=== PATIENT | male | born 1940 | race Caucasian/White ===

== ENCOUNTER → 2018-01-05 09:57 | Outpatient (CLI) | payer MEDICARE, SELFPAY ==
[2018-01-05 12:35] LABS: Absolute Lymphocyte Count 1.38 X10^3/ul (0.83-4.51); Absolute Neutrophil Count 5.5 X10^3/uL (2.0-7.7); Basophil# 0.03 X10^3/uL; Basophil% 0.4 % (0-1); Eosinophils% 7.3 % (0-5); Hematocrit 39.8 % (40-54); Lymphocyte # 1.38 X10^3/ul (4.0); Lymphocyte % 16.8 % (19-41); Mean Corp Hgb Conc 32.7 g/gl (32-36); Mean Corpuscular Hgb 30.9 pg (27.0-32.0); Mean Corpuscular Volume 94.5 fL (80-94); Mean Platelet Vol. 10.2 fl (6.2-12.0); Monocyte# 0.67 X10^3/uL; Monocyte% 8.1 % (0-10); Neutrophil # 5.53 X10^3/uL (2.7-7.7); Neutrophil % 67.2 % (47-70); Platelet Count 357 K/mm3 (150-450); RBC Distribution Width CV 14.5 % (11.6-14.6); RBC Distribution Width SD 49.2 fl (35.1-43.9); Red Blood Count 4.21 M/mm3 (4.6-6.2); White Blood Count 8.2 K/mm3 (4.4-11.0)
[2018-01-05 12:49] LABS: ALB/GLOB Ratio 0.9 RATIO (0.9-2.4); AST(SGOT) 13 U/L (15-37); Alanine Aminotransfer ALT/SGPT 19 U/L (16-61); Albumin, Serum 3.5 g/dL (3.2-5.0); Alkaline Phosphatase 71 U/L (45-117); Anion Gap 7 (5-15); BUN 17 mg/dL (7-18); BUN/Creat Ratio 14.7 RATIO (10-20); Calcium,Total 9.1 mg/dL (8.5-10.1); Chloride 105 mmol/L (98-107); Creatinine, Serum 1.16 mg/dL (0.70-1.30); EST Glomerular Filtration Rate 65 mL/min (>60); Est Glom Filt Rate - Afr Amer 78 mL/min (>60); Globulin 4.1 g/dL (2.2-4.2); Glucose 139 mg/dL (74-106); Potassium 4.4 mmol/L (3.5-5.1); Protein, Total 7.6 g/dL (6.4-8.2); Sodium Level 139 mmol/L (136-145)
[2018-01-05 12:53] LABS: POSITIVE COUNT NO; POSITIVE DIFFERENTIAL NO; POSITIVE MORPHOLOGY NO
== END ==
PROVIDERS: Family Provider Family Medicine; PCP Family Medicine; Visit Provider Family Medicine
DX: E11.9 Type 2 diabetes mellitus without complications (principal)
CPT/HCPCS: 36415; 80053; 85025

== ENCOUNTER → 2018-05-01 10:16 | Outpatient (CLI) | payer MEDICARE, SELFPAY ==
[2018-05-01 11:44] LABS: Bacteria 0 SEEN /hpf (None Seen); Mucous, Urine 0 SEEN /hpf (<or=2+); Squamous Epithelial Cells - UA 0 SEEN /hpf (0-5); White Blood Cells 0 SEEN /hpf (0-5)
[2018-05-01 14:04] LABS: Color, Urine Yellow (Yellow); Glucose, Dipstick Normal (Normal); Ketone-Dipstick Negative (Negative); Leukocyte Esterase-Dipstick Negative /ul (Negative); Nitrite-Dipstick Negative (Negative); Occult Blood-Urine 10 /ul (Negative); Protein-Dipstick Negative (Negative); Urine Bilirubin Dipstick Negative (Negative); Urine Clarity Clear (Clear); Urine Urobilinogen Normal (Normal)
[2018-05-01 14:11] LABS: Hematocrit 40.4 % (40-54); Hemoglobin 13.3 g/dl (13.0-16.5); Mean Corp Hgb Conc 32.9 g/gl (32-36); Mean Corpuscular Hgb 30.9 pg (27.0-32.0); Platelet Count 295 K/mm3 (150-450); RBC Distribution Width SD 46.2 fl (35.1-43.9); White Blood Count 7.8 K/mm3 (4.4-11.0)
[2018-05-01 14:12] LABS: Red Blood Cells-Urine 0-5 SEEN /hpf (0-5)
[2018-05-01 14:13] LABS: Scan Indicated on CBC? Y/N NO
[2018-05-01 14:25] LABS: AST(SGOT) 18 U/L (15-37); Alanine Aminotransfer ALT/SGPT 23 U/L (16-61); Albumin, Serum 3.8 g/dL (3.2-5.0); Alkaline Phosphatase 68 U/L (45-117); Anion Gap 5 (5-15); BUN 17 mg/dL (7-18); BUN/Creat Ratio 14.4 RATIO (10-20); Calcium,Total 9.5 mg/dL (8.5-10.1); Chloride 107 mmol/L (98-107); Creatinine, Serum 1.18 mg/dL (0.70-1.30); EST Glomerular Filtration Rate 63 mL/min (>60); Est Glom Filt Rate - Afr Amer 77 mL/min (>60); Globulin 3.9 g/dL (2.2-4.2); Glucose 127 mg/dL (74-106); Potassium 4.4 mmol/L (3.5-5.1); Protein, Total 7.7 g/dL (6.4-8.2); Sodium Level 140 mmol/L (136-145)
[2018-05-01 14:33] LABS: Hemoglobin A1c 7.1 % (4.2-6.3)
== END ==
PROVIDERS: Family Provider Family Medicine; PCP Family Medicine; Visit Provider Family Medicine
DX: J44.9 Chronic obstructive pulmonary disease, unspecified (principal); E11.9 Type 2 diabetes mellitus without complications
CPT/HCPCS: 36415; 80053; 81001; 83036; 85027

== ENCOUNTER → 2018-06-13 08:41 | Outpatient (CLI) | payer MEDICARE, SELFPAY ==
--- NOTE | 2018-06-13 08:44 | US_ITS ---
STUDY: ULTRASOUND - URINARY BLADDER REASON FOR EXAM: Male, 77 years old. Urinary retention. TECHNIQUE: Ultrasound evaluation of the urinary bladder was performed with real-time and static hernandez-scale imaging. COMPARISON: 09/13/17. FINDINGS: There is no right UVJ calculus. There is a visualized right ureteral jet. There is no left UVJ calculus. There is a visualized left ureteral jet. The distended volume of the urinary bladder is 411 ml. The empty volume of the urinary bladder is 184 ml. The bladder wall is within normal limits. The bladder wall measures 3. There is no demonstrated bladder wall mass lesion. Probable debris seen along the posterior wall. There are no demonstrated bladder calculi. There is marked enlargement of the prostate gland measuring 6.0 x 5.4 x 3.6 cm US/Post Void Residual Bladder IMPRESSION: Moderate urinary retention. Marked prostate enlargement. Electronically Signed: Cooper Rodriguez MD at 18:03 EDT , Service support ,
== END ==
PROVIDERS: Family Provider Family Medicine; PCP Family Medicine; Visit Provider Family Medicine
DX: R33.9 Retention of urine, unspecified (principal)
CPT/HCPCS: 51798

== ENCOUNTER → 2018-06-26 17:11 | Outpatient (CLI) | payer MEDICARE, SELFPAY ==
[2018-06-26 17:52] LABS: Bacteria 0 SEEN /hpf (None Seen); Mucous, Urine 0 SEEN /hpf (<or=2+); Squamous Epithelial Cells - UA 0 SEEN /hpf (0-5)
[2018-06-26 17:58] LABS: Color, Urine Yellow (Yellow); Glucose, Dipstick Normal (Normal); Ketone-Dipstick Negative (Negative); Leukocyte Esterase-Dipstick 25 /ul (Negative); Nitrite-Dipstick Negative (Negative); Occult Blood-Urine 25 /ul (Negative); Protein-Dipstick Negative (Negative); Urine Bilirubin Dipstick Negative (Negative); Urine Clarity Clear (Clear); Urine Urobilinogen Normal (Normal)
[2018-06-26 18:15] LABS: Red Blood Cells-Urine 0-5 SEEN /hpf (0-5); White Blood Cells 0-5 SEEN /hpf (0-5)
== END ==
PROVIDERS: Family Provider Family Medicine; PCP Family Medicine; Visit Provider Nurse Practitioner Adult Health
DX: R31.9 Hematuria, unspecified (principal)
CPT/HCPCS: 81001; 87086; 87088

== ENCOUNTER → 2018-08-07 10:02 | Outpatient (CLI) | payer MEDICARE, SELFPAY ==
[2018-08-07 10:07] LABS: Mucous, Urine 0 SEEN /hpf (<or=2+); White Blood Cells 0 SEEN /hpf (0-5)
[2018-08-07 12:18] LABS: Absolute Lymphocyte Count 1.26 X10^3/ul (0.83-4.51); Absolute Neutrophil Count 5.1 X10^3/uL (2.0-7.7); Basophil# 0.03 X10^3/uL; Basophil% 0.4 % (0-1); Eosinophil# 0.58 X10^3/uL; Eosinophils% 7.5 % (0-5); Hematocrit 39.1 % (40-54); Hemoglobin 12.8 g/dl (13.0-16.5); Lymphocyte # 1.26 X10^3/ul (4.0); Lymphocyte % 16.3 % (19-41); Mean Corp Hgb Conc 32.7 g/gl (32-36); Mean Corpuscular Hgb 31.1 pg (27.0-32.0); Mean Corpuscular Volume 94.9 fL (80-94); Mean Platelet Vol. 10.7 fl (6.2-12.0); Monocyte# 0.73 X10^3/uL; Monocyte% 9.5 % (0-10); Neutrophil # 5.11 X10^3/uL (2.7-7.7); Neutrophil % 66.2 % (47-70); Platelet Count 271 K/mm3 (150-450); RBC Distribution Width CV 13.7 % (11.6-14.6); RBC Distribution Width SD 45.4 fl (35.1-43.9); Red Blood Count 4.12 M/mm3 (4.6-6.2); White Blood Count 7.7 K/mm3 (4.4-11.0)
[2018-08-07 12:23] LABS: POSITIVE COUNT NO; POSITIVE DIFFERENTIAL NO; POSITIVE MORPHOLOGY NO
[2018-08-07 12:42] LABS: Color, Urine Yellow (Yellow); Glucose, Dipstick Normal (Normal); Ketone-Dipstick 5 mg/dl (Negative); Leukocyte Esterase-Dipstick 25 /ul (Negative); Nitrite-Dipstick Negative (Negative); Occult Blood-Urine 25 /ul (Negative); Protein-Dipstick 15 mg/dl (Negative); Urine Clarity Sl. Cloudy (Clear); Urine Urobilinogen 1 mg/dl (Normal)
[2018-08-07 12:44] LABS: AST(SGOT) 18 U/L (15-37); Alanine Aminotransfer ALT/SGPT 22 U/L (16-61); Albumin, Serum 3.7 g/dL (3.2-5.0); Alkaline Phosphatase 69 U/L (45-117); Anion Gap 9 (5-15); BUN 21 mg/dL (7-18); BUN/Creat Ratio 18.8 RATIO (10-20); Chloride 107 mmol/L (98-107); Cholesterol 159 mg/dL (200); Creatinine, Serum 1.12 mg/dL (0.70-1.30); EST Glomerular Filtration Rate 67 mL/min (>60); Est Glom Filt Rate - Afr Amer 81 mL/min (>60); Globulin 3.8 g/dL (2.2-4.2); Glucose 142 mg/dL (74-106); High Density Lipoprotein 48 mg/dL; Potassium 4.3 mmol/L (3.5-5.1); Protein, Total 7.5 g/dL (6.4-8.2); Sodium Level 141 mmol/L (136-145); Triglycerides 84 mg/dL; Very Low Density Lipoprotein 17 mg/dL (5-40)
[2018-08-07 12:45] LABS: Urine Bilirubin Dipstick 1 mg/dL (Negative)
[2018-08-07 12:47] LABS: Hemoglobin A1c 6.9 % (4.2-6.3)
[2018-08-07 12:49] LABS: Bacteria RARE /hpf (None Seen); Hyaline Cast 0-5 SEEN /lpf (0-5); Red Blood Cells-Urine 0-5 SEEN /hpf (0-5); Squamous Epithelial Cells - UA 0-5 SEEN /hpf (0-5)
[2018-08-07 12:57] LABS: Microalbumin,Random Urine 46.4 mg/L (NO RANGE EST.); Microalbumin:Creatinine Ratio 15.5 mg/g CRE (<30 mg/g CRE)
== END ==
PROVIDERS: Family Provider Family Medicine; PCP Family Medicine; Visit Provider Family Medicine
DX: E11.9 Type 2 diabetes mellitus without complications (principal); J44.9 Chronic obstructive pulmonary disease, unspecified; Z72.0 Tobacco use
CPT/HCPCS: 36415; 80053; 80061; 81001; 82043; 82570; 83036; 85025

== ENCOUNTER → 2018-08-08 10:21 | Outpatient (CLI) | payer MEDICARE, SELFPAY ==
[2018-08-08 12:50] LABS: Vitamin B12 842 pg/mL (211-911)
[2018-08-08 13:20] LABS: Ferritin 269 ng/mL (26-388); Iron 63 ug/dL (65-175); Iron Binding Capacity,Total 269 ug/dL (250-450)
== END ==
PROVIDERS: Family Provider Family Medicine; PCP Family Medicine; Visit Provider Family Medicine
DX: D64.9 Anemia, unspecified (principal)
CPT/HCPCS: 36415; 82607; 82728; 82746; 83540; 83550

== ENCOUNTER → 2018-08-22 11:16 | Outpatient (CLI) | payer MEDICARE, SELFPAY ==
--- NOTE | 2018-08-22 11:23 | RAD_ITS ---
STUDY: X-RAY - ACUTE ABDOMINAL SERIES REASON FOR EXAM: Male, 77 years old. Constipation with pain across the lower belly and back for one month TECHNIQUE: Single view of the chest. Supine, and erect view(s) of the abdomen were obtained. COMPARISON: None. FINDINGS: Rounded consolidation adjacent to the right hilum measures approximately 6.1 cm. Normal size heart. Normal mediastinum and aditi. Normal visualized pulmonary arteries. Normal visualized aortic arch and descending thoracic aorta. There is a non-specific bowel gas pattern. There are multiple rounded calcifications of the right upper abdomen, likely gallstones. Mild fecal residue of the right colon. There are diffuse degenerative changes of the visualized lumbar spine with mild levoscoliosis. There are vascular phleboliths of the pelvis. RAD/Acute Abdomen Inc Chest IMPRESSION: 1. Rounded right perihilar consolidation may represent localized pneumonia, however, follow-up is recommended as neoplasm is also in the differential diagnosis. 2. Probable gallstones. 3. Degenerative changes of the lumbar spine. Electronically Signed: Gianluca Dotson MD at 19:17 EST , Service support ,
== END ==
PROVIDERS: Family Provider Family Medicine; PCP Family Medicine; Referring Provider Family Medicine; Visit Provider Family Medicine
DX: R10.9 Unspecified abdominal pain (principal)
CPT/HCPCS: 74022

== ENCOUNTER → 2018-08-28 14:43 | Outpatient (CLI) | payer MEDICARE, SELFPAY ==
--- NOTE | 2018-08-28 14:50 | CT_ITS ---
STUDY: CT CHEST WITH CONTRAST REASON FOR EXAM: Male, 77 years old. Pulmonary mass seen on chest x-ray RADIATION DOSAGE (If Supplied By Facility): CTDIvol = ( 18.94 ) mGy, DLP = ( 606.20 ) mGycm TECHNIQUE: Transaxial imaging was performed following intravenous administration of 100ML ml of Isovue 300 contrast material. Individualized dose optimization techniques were used for this CT. COMPARISON: 08/22/2018 FINDINGS: Mild pulmonary emphysema. Diffuse pulmonary hyperinflation. Dense right lower lobe pneumonia. Milder multifocal pneumonia in the other pulmonary lobes. Focal pneumonia in the right upper lobe, left lower lobe and lingula contains areas of cavitation No well-defined lung mass is seen. There is no demonstrated pleural abnormality. Normal heart and pericardium. Normal mediastinum. Normal hilar regions. Normal enhanced pulmonary arteries. Normal aorta arch and descending thoracic aorta. There are multi-level degenerative changes of the thoracic spine. Multiple gallstones. Fatty liver. Several faint areas of increased and decreased density are noted throughout the liver and several low density areas are present in the spleen. Hepatic and/or splenic metastatic disease is not excluded. Indeterminate nonfatty 3.4 x 2.4 cm left adrenal mass. Ill-defined mass in the body of the pancreas measuring 5.5 x 3.4 cm on image 139 of series 1002. The diagnosis of exclusion is pancreatic malignancy. Multiple shotty peripancreatic and periportal lymph nodes are present. CT/Chest WITH Contrast IMPRESSION: Dense right lower lobe pneumonia. Milder focal pneumonia is present in the other pulmonary lobes. However, several of these focal areas of alveolar disease contain cavitation. Differential includes multiple areas of cavitary infection, inflammation, and neoplasm. Mass in the body of the pancreas. The diagnosis of exclusion is pancreatic malignancy. Indeterminate mass in the left adrenal gland. Metastatic disease is not excluded. Metastatic disease cannot be excluded involving the liver and spleen as described. Multiple gallstones. Electronically Signed: Wood Hamlin MD at 0:18 EST Tel , Service support ,
--- OUTSIDE RECORDS SUMMARY | 2018-10-10 12:45 | XMS RPT_ITS ---
:1940 Author Organization OHIP Care Team Providers Name Role Phone Jenny Delvalle Attending Unavailable Jenny Delvalle Primary Care Unavailable Jenny Delvalle Attending Unavailable Jenny Delvalle Primary Care Unavailable Jenny Delvalle Attending Unavailable Jenny Delvalle Referring Unavailable Jenny Delvalle Primary Care Unavailable Fabienne Vale Attending Unavailable Fabienne Vale Referring Unavailable Jenny Delvalle Primary Care Unavailable Jenny Delvalle Attending Unavailable Jenny Delvalle Primary Care Unavailable Schinner, Jenny E Attending Unavailable Schinner, Jenny E Primary Care Unavailable Schinner, Jenny E Attending Unavailable Schinner, Jenny E Referring Unavailable Schinner, Jenny E Primary Care Unavailable Schinner, Jenny E Attending Unavailable Schinner, Jenny E Referring Unavailable Schinner, Jenny E Primary Care Unavailable Schinner, Jenny E Attending Unavailable Schinner, Jenny E Referring Unavailable Schinner, Jenny E Primary Care Unavailable ALI, NOAMAN Attending Unavailable MASCI, CIARAN A Referring Unavailable ALI, NOAMAN Referring Unavailable AWENDER, LAKISHA S Admitting Unavailable AWENDER, LAKISHA S Attending Unavailable MASCI, CIARAN A Attending Unavailable SCHINNER, JENNY MCINTYRE Referring Unavailable ALI, NOAMAN Referring Unavailable MASCI, CIARAN A Attending Unavailable MASCI, ICARAN A Referring Unavailable MASCI, CIARAN A Referring Unavailable [facility] Primary Care Unavailable AWENDER, H S Admitting Unavailable AWENDER, H S Attending Unavailable IMCA Primary Care Unavailable ALI, NOAMAN S Referring Unavailable IMCA Primary Care Unavailable MASCI, CIARAN A Referring Unavailable ALI, NOAMAN S Attending Unavailable PROBLEMS PROBLEMS DATE TYPE CONDITION / CODE ATTENDING STATUS SOURCE 09/13/2018 Active Disease of AWENDER, Active [facility] pancreas, LAKISHA S Clinic Other unspecified / [place] K86.9(ICD-10) Repository 09/13/2018 Admitting Unknown / AWENDER, H S Active [place] [facility] UNK(Unknown) [facility] Repository 09/08/2018 Active Coagulation defect, NA Active [facility] unspecified / [facility] D68.9(ICD-10) [place] Repository 09/08/2018 Active Malignant neoplasm ALI, NOAMAN Active [facility] of body of pancreas Clinic Other / C25.1(ICD-10) [place] Repository 08/28/2018 Unknown R91.8 - Other Jenny Delvalle Active [place] nonspecific [facility] abnormal finding of Hospital lung field / Repository R91.8(ICD-10) 08/22/2018 Unknown R10.9 - Unspecified Jenny Delvalle Active [facility] abdominal pain / [facility] R10.9(ICD-10) Hospital Repository 01/27/2018 Unknown E11.9 - Type 2 Jenny Delvalle Active [facility] diabetes mellitus [facility] without Hospital complications / Repository E11.9(ICD-10) PROCEDURES PROCEDURES No Procedure Records FoundRESULTS RESULTS PROGRESS Observed: 09/19/2018 Status: COMPLETED Source: [place] 10:32 AM [facility] RE[facility] HNO ID: [id number] Author: Isabella Chapin (Sw) Service: (none) Author Type: Clinical Documentation Improvement Specialist Type: Progress Notes Filed: 09/19/2018 10:45 AM Note Text: PSYCHOSOCIAL ASSESSMENT Date of Service: September 19, 2018 Jenny Nobles is a 77 year old male being seen for initial social work assessment. 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 Gambino Radiation Oncologist: NAYE Goals of Care: Palliative care Today's visit includes: self/patient and spouse Family History of Cancer: Mother *SUPPORT NETWORK: Marital status: Parent(s): Mother is and Father is Child/Children: Yes. How many? 1 son health care analyst arrangements needed: No Siblings: 1 sister(s) Grandchild(ryan): none Home Health Provider: No Community Services: No Krysten Identified: Yes Religious/Spirituality: Spiritism Are these practices or beliefs that may affect or influence treatment? No *EMPLOYMENT/FINANCIAL/HEALTH INSURANCE: Employment: Retired Income source: Social Security Insurance: Medicare HMO Prescription coverage: Yes COBRA Is the patient appropriate for referral to [facility] COBRA Assistance program? No Financial Distress: No : No *LIVING ARRANGEMENTS: Type: House- independent ranch Resides with: Family spouse *FUNCTIONAL STATUS: Cognitive limitations: none Physical limitations: Back pain Language barrier: No Hearing Impaired: Yes hearing aids Speech Impaired: No Visual Impairments: Yes, glasses Literacy Issues: No Special considerations/accommodations needed: No MENTAL HEALTH HISTORY: No History of combat/trauma: No Substance Use and Treatment History: denied History of Abuse: No Issues with: ? Sleep: Occassionally some issues sleeping due to back pain ? Eating:Yes ? Exercising: N/A ? Stress Management: No *ADVANCE DIRECTIVES/LEGAL DOCUMENTS: Living Will: Yes Health Care Durable Power of Spine Surgeon: Yes Scanned into EPIC: No Guardianship: NA Scanned into EPIC:NA *COPING STATUS: Coping Strengths: supportive relationships with immediate family, with friends and with yazidism spirituality successful managing past crises hopefulness able to follow direction consistently over time Current affect/mood: appropriate History of Loss: Yes, mother and father Adjustment to diagnosis: reflecting understanding, responding appropriately and accepting help *BARRIERS/CARE CHALLENGES: None Are barriers/care challenges identified likely to have an impact on the patient's quality of life during treatment? NA *CLINICAL IMPRESSION: SW called patient to monitor MH symptoms and to assess patient needs. Patient reports strong support system and states that his son lives nearby and that he attends yazidism. Patient's spouse was on the line as well and answered some of the questions for patient. Patient reports some back pain that occasionally keeps him up at night, but states most nights he sleeps well. Patient reports decrease in appetite and states he can't hold as much food as [he] used to. Patient reports cognitively he has no issues and reports no history of or current MH issues. Patient uses hearing aids and glasses. Patient lives in a single-story home with his spouse and denies issues getting around his home. At this time patient denies any financial stressors. When SW asked if patient has completed Advance Directives, his spouse stated he has those documents. SW asked if they would be able to bring a copy in at his next appointment so SW could ensure it is scanned into his chart in case it is ever needed. Patient's spouse stated that she does not want to do this. Patient did not say anything. SW encouraged them to think this over and to contact JACOB if they change their mind. SW oriented patient to services. INTERVENTIONS/REFERRALS TO BE PROVIDED: Monitor patient response to treatment Communicate pertinent medical/psychosocial information to Cancer Center team Provided education on distress and screening process Continue follow up as needed Resources and Referrals: ? Internal: NA ? External: N/A PLAN: Follow up appointment with JACOB in: [facility] Ramos CNSW Observed: 09/19/2018 Status: COMPLETED Source: [place] 12:00 AM [facility] REPOSITORY Social Work ([facility]) JENNY NOBLES ([id number]) 1940 M Date Time Provider Department 09/19/18 ISABELLA CHAPIN (SW) During your visit today, we recorded the following information about you: CLYDE Doherty 09/19/2018 10:45 AM Signed PSYCHOSOCIAL ASSESSMENT Date of Service: September 19, 2018 Jenny Nobles is a 77 year old male being seen for initial social work assessment. 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 Gambino Radiation Oncologist: NAYE Goals of Care: Palliative care Today's visit includes: self/patient and spouse Family History of Cancer: Mother *SUPPORT NETWORK: Marital status: Parent(s): Mother is and Father is Child/Children: Yes. How many? 1 son health care analyst arrangements needed: No Siblings: 1 sister(s) Grandchild(ryan): none Home Health Provider: No Community Services: No Krysten Identified: Yes Religious/Spirituality: Spiritism Are these practices or beliefs that may affect or influence treatment? No *EMPLOYMENT/FINANCIAL/HEALTH INSURANCE: Employment: Retired Income source: Social Security Insurance: Medicare HMO Prescription coverage: Yes COBRA Is the patient appropriate for referral to [facility] COBRA Assistance program? No Financial Distress: No [place]: No *LIVING ARRANGEMENTS: Type: House- independent ranch Resides with: Family spouse *FUNCTIONAL STATUS: Cognitive limitations: none Physical limitations: Back pain Language barrier: No Hearing Impaired: Yes hearing aids Speech Impaired: No Visual Impairments: Yes, glasses Literacy Issues: No Special considerations/accommodations needed: No MENTAL HEALTH HISTORY: No History of combat/trauma: No Substance Use and Treatment History: denied History of Abuse: No Issues with: ? Sleep: Occassionally some issues sleeping due to back pain ? Eating:Yes ? Exercising: N/A ? Stress Management: No *ADVANCE DIRECTIVES/LEGAL DOCUMENTS: Living Will: Yes Health Care Durable Power of Spine Surgeon: Yes Scanned into [employer] Software: No Guardianship: NA Scanned into EPIC:NA *COPING STATUS: Coping Strengths: supportive relationships with immediate family, with friends and with yazidism spirituality successful managing past crises hopefulness able to follow direction consistently over time Current affect/mood: appropriate History of Loss: Yes, mother and father Adjustment to diagnosis: reflecting understanding, responding appropriately and accepting help *BARRIERS/CARE CHALLENGES: None Are barriers/care challenges identified likely to have an impact on the patient's quality of life during treatment? NA *CLINICAL IMPRESSION: SW called patient to monitor MH symptoms and to assess patient needs. Patient reports strong support system and states that his son lives nearby and that he attends yazidism. Patient's spouse was on the line as well and answered some of the questions for patient. Patient reports some back pain that occasionally keeps him up at night, but states most nights he sleeps well. Patient reports decrease in appetite and states he can't hold as much food as [he] used to. Patient reports cognitively he has no issues and reports no history of or current MH issues. Patient uses hearing aids and glasses. Patient lives in a single-story home with his spouse and denies issues getting around his home. At this time patient denies any financial stressors. When SW asked if patient has completed Advance Directives, his spouse stated he has those documents. SW asked if they would be able to bring a copy in at his next appointment so SW could ensure it is scanned into his chart in case it is ever needed. Patient's spouse stated that she does not want to do this. Patient did not say anything. SW encouraged them to think this over and to contact SW if they change their mind. SW oriented patient to services. INTERVENTIONS/REFERRALS TO BE PROVIDED: Monitor patient response to treatment Communicate pertinent medical/psychosocial information to Cancer Center team Provided education on distress and screening process Continue follow up as needed Resources and Referrals: ? Internal: NA ? External: N/A PLAN: Follow up appointment with SW in: CLYDE Ramos Allergies As of Date: 09/19/2018 Noted Allergy Reaction enviromental [Other] 03/09/2010 Date Reviewed: 09/18/2018 Reviewed by: Pretty Suarez - Fully Assessed Reason for Visit: Psychosocial Assessment [[id number]] Prescriptions as of 09/19/2018 Sig: CHOLECALCIFEROL (VITAMIN D3) * Take 1 capsule by mouth once * LINAGLIPTIN 5 MG TABLET Take 1 tablet by mouth once d* MULTIVITAMIN TABLET Take one(1) tablet daily. ONDANSETRON HCL 8 MG TABLET Take 1 tablet by mouth every * TAMSULOSIN 0.4 MG CAPSULE Take 0.4 mg by mouth daily at* Problem List As Of Date 09/19/2018 Noted Resolved TREMOR NEC [G25.0, G25.2] INVALID FOR* MALAISE AND FATIGUE NEC [R53.81, R53.83] INVALID FOR* Tubular Adenoma [D36.9] INVALID FOR* More... Tobacco Use Disorder [F17.200] INVALID FOR* Family history of colon cancer [Z80.0] INVALID FOR* Personal history of colonic polyps [Z86.010] INVALID FOR* COPD (chronic obstructive pulmonary disease) (H*INVALID FOR* Malignant neoplasm of body of pancreas (HCC) [C*INVALID FOR* Encounter Status:Closed by ISABELLA CHAPIN on 09/19/18 CNOVSP Observed: 09/18/2018 Status: COMPLETED Source: [place] 1:30 PM [facility] REPOSITORY Visit (SP) Office ([facility]KE) JENNY NOBLES ([id number]) 1940 M Date Time Provider Department 09/18/18 1:30 PM CIARAN GAMBINO During your visit today, we recorded the following information about you: Temperature Pulse Blood pressure Weight 97.4 degrees 70/minute 137/72 73.5 kg Ciaran Gambino DO 09/18/2018 2:28 PM Signed Diagnosis: 1) Metastatic pancreas cancer. HPI: Patient is a 77-year-old male was past medical history significant for COPD. He began experiencing upper lumbar/lower thoracic back pain about 2-3 months ago. He had noticed some decline in appetite. He did not have any episodes of jaundice. He had a chest x-ray which demonstrated a right lower lobe infiltrate and subsequently underwent a CT of the chest. CT chest 08/28/2018: Mild pulmonary emphysema. Diffuse pulmonary hyperinflation. Dense right lower lobe pneumonia. Milder multifocal pneumonia in the other pulmonary lobes. Focal pneumonia in the right upper lobe, left lower lobe and lingula contains areas of cavitation No well-defined lung mass is seen. There is no demonstrated pleural abnormality. Normal heart and pericardium. Normal mediastinum. Normal hilar regions. Normal enhanced pulmonary arteries. Normal aorta arch and descending thoracic aorta. There are multi-level degenerative changes of the thoracic spine. Multiple gallstones. Fatty liver. Several faint areas of increased and decreased density are noted throughout the liver and several low density areas are present in the spleen. Hepatic and/or splenic metastatic disease is not excluded. Indeterminate nonfatty 3.4 x 2.4 cm left adrenal mass. Ill-defined mass in the body of the pancreas measuring 5.5 x 3.4 cm on image 139 of series 1002. The diagnosis of exclusion is pancreatic malignancy. Multiple shotty peripancreatic and periportal lymph nodes are present. IMPRESSION: Dense right lower lobe pneumonia. Milder focal pneumonia is present in the other pulmonary lobes. However, several of these focal areas of alveolar disease contain cavitation. Differential includes multiple areas of cavitary infection, inflammation, and neoplasm. Mass in the body of the pancreas. The diagnosis of exclusion is pancreatic malignancy. Indeterminate mass in the left adrenal gland. Metastatic disease is not excluded. Metastatic disease cannot be excluded involving the liver and spleen as described. Multiple gallstones. CT A/P 08/30/2018: FINDINGS: There is minor interstitial thickening at both lung bases. There is focal peripheral consolidation in both lower lobes greater on the right. Thevisualized portions of the heart are within normal limits. Small hiatal hernia is present Liver is fatty infiltrated without mass or bile duct dilatation.. Multiple calcified stones in the gallbladder without evidence for acute cholecystitis. Normal spleen. There is a large heterogeneous solid mass measuring approximately 5.6 x 2.75 cm involving much of the body and tail of the pancreas. There is encasement and occlusion of the splenic vein with associated perigastric venous collaterals. Right adrenal is normal. There is a solid adrenal mass on the left measuring 2.8 x 2.6 cm suspicious for metastatic disease Normal right kidney. Normal left kidney. Normal visualized stomach. Normal small intestine. Prominent diverticular changes within the descending and sigmoid colon without evidence for acute diverticulitis. The appendix is visualized and appears normal. 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 No evidence for periaortic leak or dissection. Normal inferior vena cava. Normal retroperitoneum. Normal urinary bladder. Nonspecific enlargement of the prostate. There is a small amount of ascites in the pelvis. Small right inguinal hernia containing loop of bowel without evidence for proximal obstruction or incarceration.. Lumbar spine demonstrates moderate spondylosis.. IMPRESSION: Findings consistent with large pancreatic neoplasm involving much of the body and tail of the gland encasing and occluding the splenic vein in association with perigastric venous collaterals. Solid mass in left adrenal suspicious for metastasis which may be further assessed with MRI. Mild ascites Cholelithiasis without evidence for acute cholecystitis. Presents for ongoing oncologic management. Interim history: Since last seen, patient underwent EGD with EUS along with FNA biopsy of the pancreas on 09/13/2018. Pathology: Adenocarcinoma. His pain is unchanged. It's in the upper lumbar area. He doesn't really have any abdominal per se. His appetite however is decreased. Weight is down several more pounds from initial encounter. He's had no episode of jaundice. PMH, medications and allergies personally reviewed by me today. Any changes documented in appropriate section. ROS: Constitutional: Denies episodes of fever and night sweats. Not significantly fatigued. Neuro: Denies VILLAGRAN. Occasional orthostasis. Denies symptoms of neuropathy. HEENT: No recent change in voice, vision or hearing. Resp: Denies shortness of breath at rest. CVS: Denies exertional chest pain, PND, orthopnea and LE edema. GI: Denies dysgeusia. Denies symptoms of stomatitis. Denies dysphagia and odynophagia. : Denies dysuria or gross hematuria. Endo: Denies hot flashes. Denies polyuria and polydipsia. Denies heat and cold intolerance. Musculoskeletal: See above. Derm: Denies rash. Denies diffuse pruritis. Heme: Denies unusual bleeding and unexplained bruising. Psych: Normal mood. PHYSICAL EXAM: Vitals: Blood pressure 137/72, pulse 70, temperature 36.3 ?C (97.4 ?F), temperature source Temporal Artery, weight 73.5 kg (162 lb). Well-appearing and in no acute distress. EYES: Sclerae are anicteric bilaterally. NECK: Supple. LYMPHATIC: There is no palpable cervical or supraclavicular adenopathy. RESPIRATORY: Inspiratory breath sounds are of diminished intensity in all knight. CARDIOVASCULAR: Rhythm is regular. Normal intensity S1/S2. ABDOMEN: The abdomen is nondistended. No tenderness. Extremities: No swelling or edema. SKIN: No jaundice or rash. NEUROLOGIC: float phlebotomist II-XII are grossly intact. No focal motor weakness. ASSESSMENT/PLAN: (K86.9) Mass of pancreas (primary encounter diagnosis) (D49.7) Adrenal tumor Assessment: -Reviewed the CT scans with the patient and his . I also reviewed the biopsy. In all likelihood he has metastatic disease given the magnitude of increase in CA-19-9 and the appearance of the CT scan, however in order to establish whether this truly metastasis, I recommended biopsy of the left adrenal gland mass. -If there is no evidence of metastasis then it's reasonable to clinically approach as borderline resectable disease but if metastasis then he'll need chemotherapy for potential prolongation of overall survival. Gemcitabine and Abraxane would be a reasonable choice for both of these ends. Therefore, I discussed the rationale, logistics, potential risks (including ), benefits and alternatives, as well as the personnel involved in the administration of gemctiabine/Abraxane. I answered his questions in detail and he verbalized understanding and agreed with the recommended therapy. Please see the electronic consent document for details of doses and schedule. Plan: -Range for CT-guided biopsy of left adrenal gland mass at [facility]. -Begin chemotherapy following biopsy. -Monitor CA-19-9 each cycle. -CT scan following 2 cycles. DO Ciaran Blair DO 09/18/2018 2:49 PM Signed Addended by: CIARAN GAMBINO DO on: 09/18/2018 02:49 PM Modules accepted: Orders Referring Provider: CIARAN GAMBINO [[id number]] Allergies As of Date: 09/18/2018 Noted Allergy Reaction enviromental [Other] 03/09/2010 Date Reviewed: 09/18/2018 Reviewed by: Pretty Suarez - Fully Assessed Reason for Visit: Established Patient [175] Primary Visit Diagnosis:Malignant neoplasm of body of pancreas (HCC) [C25.1] Other Visit Diagnosis:Adrenal mass (HCC) [E27.9] Order(s):IMAGING GUIDED BIOPSY ADRENAL LT [[id number]] Order #: [id number] FUTURE Follow-up and Disposition History Recorded Prescriptions as of 09/18/2018 Sig: LINAGLIPTIN 5 MG TABLET Take 1 tablet by mouth once d* MULTIVITAMIN TABLET Take one(1) tablet daily. TAMSULOSIN 0.4 MG CAPSULE Take 0.4 mg by mouth daily at* CHOLECALCIFEROL (VITAMIN D3) * Take 1 capsule by mouth once * Problem List As Of Date 09/18/2018 Noted Resolved TREMOR NEC [G25.0, G25.2] INVALID FOR* MALAISE AND FATIGUE NEC [R53.81, R53.83] INVALID FOR* Tubular Adenoma [D36.9] INVALID FOR* More... Tobacco Use Disorder [F17.200] INVALID FOR* Family history of colon cancer [Z80.0] INVALID FOR* Personal history of colonic polyps [Z86.010] INVALID FOR* COPD (chronic obstructive pulmonary disease) (H*INVALID FOR* Malignant neoplasm of body of pancreas (HCC) [C*INVALID FOR* Encounter Status:Closed by CIARAN GAMBINO DO on 09/18/18 PROGRESS Observed: 09/18/2018 Status: COMPLETED Source: [place] 1:26 PM [facility] REPOSITORY HNO ID: [id number] Author: Ciaran Gambino Service: (none) Author Type: Physician Type: Progress Notes Filed: 09/18/2018 2:28 PM Note Text: Diagnosis: 1) Metastatic pancreas cancer. HPI: Patient is a 77-year-old male was past medical history significant for COPD. He began experiencing upper lumbar/lower thoracic back pain about 2-3 months ago. He had noticed some decline in appetite. He did not have any episodes of jaundice. He had a chest x-ray which demonstrated a right lower lobe infiltrate and subsequently underwent a CT of the chest. CT chest 08/28/2018: Mild pulmonary emphysema. Diffuse pulmonary hyperinflation. Dense right lower lobe pneumonia. Milder multifocal pneumonia in the other pulmonary lobes. Focal pneumonia in the right upper lobe, left lower lobe and lingula contains areas of cavitation No well-defined lung mass is seen. There is no demonstrated pleural abnormality. Normal heart and pericardium. Normal mediastinum. Normal hilar regions. Normal enhanced pulmonary arteries. Normal aorta arch and descending thoracic aorta. There are multi-level degenerative changes of the thoracic spine. Multiple gallstones. Fatty liver. Several faint areas of increased and decreased density are noted throughout the liver and several low density areas are present in the spleen. Hepatic and/or splenic metastatic disease is not excluded. Indeterminate nonfatty 3.4 x 2.4 cm left adrenal mass. Ill-defined mass in the body of the pancreas measuring 5.5 x 3.4 cm on image 139 of series 1002. The diagnosis of exclusion is pancreatic malignancy. Multiple shotty peripancreatic and periportal lymph nodes are present. IMPRESSION: Dense right lower lobe pneumonia. Milder focal pneumonia is present in the other pulmonary lobes. However, several of these focal areas of alveolar disease contain cavitation. Differential includes multiple areas of cavitary infection, inflammation, and neoplasm. Mass in the body of the pancreas. The diagnosis of exclusion is pancreatic malignancy. Indeterminate mass in the left adrenal gland. Metastatic disease is not excluded. Metastatic disease cannot be excluded involving the liver and spleen as described. Multiple gallstones. CT A/P 08/30/2018: FINDINGS: There is minor interstitial thickening at both lung bases. There is focal peripheral consolidation in both lower lobes greater on the right. Thevisualized portions of the heart are within normal limits. Small hiatal hernia is present Liver is fatty infiltrated without mass or bile duct dilatation.. Multiple calcified stones in the gallbladder without evidence for acute cholecystitis. Normal spleen. There is a large heterogeneous solid mass measuring approximately 5.6 x 2.75 cm involving much of the body and tail of the pancreas. There is encasement and occlusion of the splenic vein with associated perigastric venous collaterals. Right adrenal is normal. There is a solid adrenal mass on the left measuring 2.8 x 2.6 cm suspicious for metastatic disease Normal right kidney. Normal left kidney. Normal visualized stomach. Normal small intestine. Prominent diverticular changes within the descending and sigmoid colon without evidence for acute diverticulitis. The appendix is visualized and appears normal. 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 No evidence for periaortic leak or dissection. Normal inferior vena cava. Normal retroperitoneum. Normal urinary bladder. Nonspecific enlargement of the prostate. There is a small amount of ascites in the pelvis. Small right inguinal hernia containing loop of bowel without evidence for proximal obstruction or incarceration.. Lumbar spine demonstrates moderate spondylosis.. IMPRESSION: Findings consistent with large pancreatic neoplasm involving much of the body and tail of the gland encasing and occluding the splenic vein in association with perigastric venous collaterals. Solid mass in left adrenal suspicious for metastasis which may be further assessed with MRI. Mild ascites Cholelithiasis without evidence for acute cholecystitis. Presents for ongoing oncologic management. Interim history: Since last seen, patient underwent EGD with EUS along with FNA biopsy of the pancreas on 09/13/2018. Pathology: Adenocarcinoma. His pain is unchanged. It's in the upper lumbar area. He doesn't really have any abdominal per se. His appetite however is decreased. Weight is down several more pounds from initial encounter. He's had no episode of jaundice. PMH, medications and allergies personally reviewed by me today. Any changes documented in appropriate section. ROS: Constitutional: Denies episodes of fever and night sweats. Not significantly fatigued. Neuro: Denies VILLAGRAN. Occasional orthostasis. Denies symptoms of neuropathy. HEENT: No recent change in voice, vision or hearing. Resp: Denies shortness of breath at rest. CVS: Denies exertional chest pain, PND, orthopnea and LE edema. GI: Denies dysgeusia. Denies symptoms of stomatitis. Denies dysphagia and odynophagia. : Denies dysuria or gross hematuria. Endo: Denies hot flashes. Denies polyuria and polydipsia. Denies heat and cold intolerance. Musculoskeletal: See above. Derm: Denies rash. Denies diffuse pruritis. Heme: Denies unusual bleeding and unexplained bruising. Psych: Normal mood. PHYSICAL EXAM: Vitals: Blood pressure 137/72, pulse 70, temperature 36.3 ?C (97.4 ?F), temperature source Temporal Artery, weight 73.5 kg (162 lb). Well-appearing and in no acute distress. EYES: Sclerae are anicteric bilaterally. NECK: Supple. LYMPHATIC: There is no palpable cervical or supraclavicular adenopathy. RESPIRATORY: Inspiratory breath sounds are of diminished intensity in all knight. CARDIOVASCULAR: Rhythm is regular. Normal intensity S1/S2. ABDOMEN: The abdomen is nondistended. No tenderness. Extremities: No swelling or edema. SKIN: No jaundice or rash. NEUROLOGIC: float phlebotomist II-XII are grossly intact. No focal motor weakness. ASSESSMENT/PLAN: (K86.9) Mass of pancreas (primary encounter diagnosis) (D49.7) Adrenal tumor Assessment: -Reviewed the CT scans with the patient and his . I also reviewed the biopsy. In all likelihood he has metastatic disease given the magnitude of increase in CA-19-9 and the appearance of the CT scan, however in order to establish whether this truly metastasis, I recommended biopsy of the left adrenal gland mass. -If there is no evidence of metastasis then it's reasonable to clinically approach as borderline resectable disease but if metastasis then he'll need chemotherapy for potential prolongation of overall survival. Gemcitabine and Abraxane would be a reasonable choice for both of these ends. Therefore, I discussed the rationale, logistics, potential risks (including ), benefits and alternatives, as well as the personnel involved in the administration of gemctiabine/Abraxane. I answered his questions in detail and he verbalized understanding and agreed with the recommended therapy. Please see the electronic consent document for details of doses and schedule. Plan: -Range for CT-guided biopsy of left adrenal gland mass at [facility]. -Begin chemotherapy following biopsy. -Monitor CA-19-9 each cycle. -CT scan following 2 cycles. Ciaran Gambino DO ANES POST Observed: 09/13/2018 Status: COMPLETED Source: [facility] 2:46 PM CLINIC OTHER CAMPUS REPOSITORY HNO ID: [id number] Author: Gurvinder Ramirez Service: Anesthesiology Author Type: Physician Type: Anesthesia PostOp Filed: 09/13/2018 3:47 PM Note Text: POST ANESTHESIA EVALUATION NOTE SERVICE DATE: 09/13/2018 SERVICE TIME: 3:47 PM : 1940 Vitals: 09/13/18 113 Temp: 36.4 ?C (97.5 ?F) 09/13/18 1132 09/13/18 1133 09/13/18 1414 09/13/18 1429 BP: 131/67 121/67 109/63 141/90 09/13/18 1132 09/13/18 1133 09/13/18 1414 09/13/18 1429 Pulse: (!) 59 62 (!) 53 (!) 53 09/13/18 1132 09/13/18 1133 09/13/18 1414 09/13/18 1429 Resp: 18 18 16 16 09/13/18 1132 09/13/18 1133 09/13/18 1414 09/13/18 1429 SpO2: 98% 100% 94% 94% Validated Vital Signs: Yes POST ANES STATUS: No apparent anesthetic complications. The patient is appropriately hydrated with stable respiratory and cardiovascular status. Patient has safe and adequate airway control. The patient has appropriate pain relief and no significant post operative nausea or vomiting. The patient has achieved baseline mental status. Intra-Operative Events: No Significant Anesthesia Events Further assessment by Anesthesia Service: None Other Remarks: SIGNATURE: Gurvinder Ramirez MD PATIENT NAME: Jenny Nobles DATE: September 13, 2018 TIME: 3:47 PM PAGER/CONTACT #: [id number] PT ED Observed: 09/13/2018 Status: COMPLETED Source: [place] 2:17 PM [facility] OTHER CAMPUS REPOSITORY HNO ID: [id number] Author: Quinn (Rn) JB Douglas Service: Gastroenterology Author Type: Registered Nurse Type: Patient Education Filed: 09/13/2018 2:17 PM Note Text: POST OP LEARNING RESPONSE INSTRUCTION PROVIDED TO: Patient and family member METHOD OF INSTRUCTION: Individual instruction PATIENT / FAMILY RESPONSE: Verbalizes understanding of: POST-PROCEDURE INSTRUCTIONS-Correct actions to take to reduce post procedure complications PATIENT SAFETY PRINCIPLES FOLLOW-UP PLAN: Patient instructed to call with any further issues SUPPLEMENTAL MATERIAL: None REFERRAL (RECOMMENDATION): None Electronically Signed By: Quinn Douglas RN In Department: [place] ENDO BRIEF OP NOT Observed: 09/13/2018 Status: COMPLETED Source: [place] 2:17 PM [facility] REPOSITORY HNO ID: [id number] Author: Donte Tolliver Service: General Surgery Author Type: Physician Type: Brief Op Note Filed: 09/13/2018 2:24 PM Note Text: BRIEF OPERATIVE / PROCEDURE NOTE LOG ID: [id number] SURGERY/PROCEDURE DATE: 09/13/2018 INCISION/PROCEDURE START TIME: 1:15 PM INCISION CLOSE/PROCEDURE END TIME: 2:07 PM SURGEON(S)/PROCEDURALIST(S) AND RETAIL STORE CLERK(S): Surgeon(s) and Role: * Donte Tolliver - Primary No Additional Staff PROCEDURE(S): EGD with EUS and FNA-Bx of pancreas ANESTHESIA: Monitored Anesthesia Care FINDINGS: mass seen in body of pancreas- 3.5 x 3.2 cm in cross section Several + nodes seen - peripancreatic and celiac area - up to 1 cm in size Mass likely T3 N1 by imaging 3 passes into mass with 22 ga needle- adequate sample obtained ESTIMATED BLOOD LOSS: Scant SPECIMENS: * No specimens in log * COMPLICATIONS: None PRE-OP/PRE-PROCEDURE DIAGNOSIS: pancreatic mass suspicious for cancer POST-OP/POST-PROCEDURE DIAGNOSIS: * No post-op diagnosis entered * Same SIGNATURE: Donte Tolliver MD PATIENT NAME: Jenny Nobles DATE: September 13, 2018 TIME: 2:17 PM PAGER/CONTACT #: CYTOLOGY, MEDICAL Observed: 09/13/2018 Status: F Source: [facility] 1:30 PM [facility] REPOSITORY Test performed at [address] [address] NAME: JENNY NOBLES REQUESTING: Donte TOLLIVER M.D. COPY TO: TUMOR REGISTRY DIAGNOSIS PANCREATIC BODY MASS, ENDOSCOPIC ULTRASOUND GUIDED ASPIRATION - POSITIVE FOR MALIGNANT CELLS. ADENOCARCINOMA. COMMENT ALSO SEEN BY DR. MORE. SPECIMEN: A) FAP, PANCREATIC MASS BODY /EUS Description: Materials Prepared & Examined: Other: ............. 6 ALC # of Cell Blocks: .......... 1 FIXED SMEARS/ 3 passes in # of Smear slides: ......... 6 saline/CB # of Slides: ................. 8 PROCEDURE: R.O.S.E: Pass #1, 2 rapid H&E smears assessed as inadequate by DEJAN SCHOFIELD(ASC) Immediate specimen adequacy: Pass #2, 1 rapid H&E smear assessed by Dr. More as lesional cells identified, also reviewed by Dr. Solorzano. Electronically Signed: 09/14/2018 Screened by: DEJAN YANEZ([facility]) Signed Out by: JOSEPHINE SOLORZANO M.D.,PATHOLOGIST Printed on: September 14, 2018 Page 1 of 1 Performed By: #### CYTOM #### [place] [id number] ANES PREOP Observed: 09/13/2018 Status: COMPLETED Source: [facility] 12:51 PM CLINIC OTHER CAMPUS REPOSITORY HNO ID: [id number] Author: Gurvinder Ramirez Service: Anesthesiology Author Type: Physician Type: Anesthesia PreOp Filed: 09/13/2018 12:53 PM Note Text: ANESTHESIOLOGY DAY OF SURGERY NOTE SERVICE DATE: 09/13/2018 SERVICE TIME: 12:51 PM : 1940 Procedure(s) (LRB): ENDOSCOPY UPPER GI W/ ENDOSCOPIC ULTRASOUND EXAMINATION,LINEAR W/CYTO (Left) Surgeon(s): Donte Tolliver Estimated body mass index is 22.24 kg/m? as calculated from the following: Height as of this encounter: 182.9 cm (6'). Weight as of this encounter: 74.4 kg (164 lb). Most recent hematocrit and potassium results: Hematocrit 39.5 09/08/2018 Potassium 3.6 06/15/2013 ANES DOS/PREOP NOTE: Vitals: 09/13/18 1100 09/13/18 1132 09/13/18 1133 BP: 131/67 121/67 Pulse: (!) 59 62 Resp: Temp: 36.4 ?C (97.5 ?F) SpO2: 98% 100% Weight: 74.4 kg (164 lb) Height: 182.9 cm (6') ACTIVE PROBLEM LIST Essential and Other Specified Forms of Tremor Other Malaise and Fatigue Tubular Adenoma Tobacco Use Disorder Family History of Colon Cancer Personal History of Colonic Polyps Copd (Chronic Obstructive Pulmonary Disease) (Hcc) PAST MEDICAL HISTORY Diagnosis Date - Benign neoplasm of colon - COPD (chronic obstructive pulmonary disease) (HCC) 12/31/2014 - Diabetes (HCC) - Diverticulosis of colon (without mention of hemorrhage) - Family history of malignant neoplasm of gastrointestinal tract - Internal hemorrhoids without mention of complication - Mental disorder - Pancreatic lesion - Personal history of colonic polyps - Unspecified tinnitus PAST SURGICAL HISTORY Procedure Laterality Date - COLONOSCOPY - DIAGNOSTIC - COLONOSCOPY W/BX 12/12/09 - COLONOSCOPY W/BX 08/21/2014 Repeat colonoscopy in 3 years - PAST SURGICAL HISTORY OF eyelid surgery- 2013, cataract- 2012 - REMOVE TONSILS/ADENOIDS,12+ Y/O FAMILY HISTORY Problem Relation Age of Onset - Colon Cancer Mother of colon cancer- at age 78 - Heart disease Father AFIB - Diabetes Sister Social History: Social History Substance Use Topics - Smoking status: Current Some Day Smoker Types: Cigars - Smokeless tobacco: Never Used Comment: Currently cigars since late , patient smoked for 40 years 1PPD quit 1974 - Alcohol use No No current facility-administered medications on file prior to encounter. Current Outpatient Prescriptions on File Prior to Encounter: linagliptin (TRADJENTA) 5 mg tab Take 1 tablet by mouth once daily. MULTIVITAMIN TAB Take one(1) tablet daily. tamsulosin ER (FLOMAX) 0.4 mg cap Take 0.4 mg by mouth daily at bedtime. Cholecalciferol, Vitamin D3, 1,000 unit cap Take 1 capsule by mouth once daily. Current Facility-Administered Medications: lactated ringers infusion 30 mL/hr INTRAVENOUS CONTINUOUS Modesta E ([employer]) Bucur Allergies: ALLERGIES Allergen Reactions - Enviromental [Other] DOS EXAM: Adequate NPO status: Yes Anesthetic risks, benefits, alternatives, personnel and consent discussed: Yes Patient agrees to proceed: Yes Previous Anesthesia: No history of adverse event. Airway Assessment: MP 2; Neck ROM: Full ROM without neurologic symptoms; Airway Evaluation: No significant abnormalities Symptoms of Sleep Apnea: Age over 50 (77 year old) and Male gender Dentition: Dentures are out. Denies loose teeth Additional Physical Exam: Lungs: Patient health status unchanged since recent history and physical. See history and physical for exam findings. Cardiac: Patient health status unchanged since recent history and physical. See history and physical for exam findings. Additional Pertinent Findings: N/A Blood Products: Not anticipated for this procedure. Anesthetic Plan: MAC with Sedation Pain Management Plan: Parenteral or Oral ASA Class: 3 Other Medical Problems: Pancreatic CA (recently diagnosed), COPD, diverticulosis, tobacco abuse Chronic Beta Makenna medication administered within 24 hours: N/A I have interviewed and examined the patient. I have reviewed the medical record and/or the pre-anesthesia evaluation, pertinent labs, and test results. Significant changes in the patient's condition since the History and Physical, not otherwise documented in primary service progress notes: No This contains updated information obtained within 48 hours of Surgery/Procedure. SIGNATURE: Gurvinder Ramirez MD PATIENT NAME: Jenny Nobles DATE: September 13, 2018 TIME: 12:51 PM CSN: [id number] PT ED Observed: 09/13/2018 Status: COMPLETED Source: [place] 12:08 PM [facility] REPOSITORY HNO ID: [id number] Author: Kenyetta Rico RN Service: Nursing Author Type: Registered Nurse Type: Patient Education Filed: 09/13/2018 12:09 PM Note Text: PRE OP LEARNING ASSESSMENT PROCEDURE/SURGERY: GI PROCEDURES: ESU READINESS TO LEARN COGNITIVE ABILITY: Alert and oriented MOTIVATION TO LEARN: Eager Interested FAMILY SUPPORT: Moderate - Family present but overwhelmed PATIENT LEARNS BEST BY: Individual Instruction Verbal Instruction FACTORS AFFECTING LEARNING: None PHYSICAL LIMITATIONS AFFECTING LEARNING: None Electronically Signed By: Kenyetta Rico RN In Department: [facility] PROGRESS Observed: 09/13/2018 Status: COMPLETED Source: [facility] 11:03 AM [facility] REPOSITORY HNO ID: [id number] Author: Modesta Sharpe Service: General Surgery Author Type: Nurse Practitioner Type: Progress Notes Filed: 09/13/2018 11:47 AM Note Text: HANDP completed by Dr. Shila Stanton on 09/08/2018. Another HANDP completed by Dr. Jose D Morin on 08/21/2014. Orders for fluid and IV in EPIC. HOSP Observed: 09/13/2018 Status: COMPLETED Source: [facility] 12:00 AM CLINIC OTHER CAMPUS REPOSITORY Patient:Jenny Nobles MRN: <[id number]> Height:6' 0(1.829 m) Weight:164 lb (74.39 kg) Outpatient Medications as of 09/13/18: Cholecalciferol, Vitamin D3, 1,000 unit cap linagliptin (TRADJENTA) 5 mg tab MULTIVITAMIN TAB tamsulosin ER (FLOMAX) 0.4 mg cap Admission/Clinic Administered Medications as of 09/13/18: lactated ringers infusion lactated ringers infusion Problem List: Essential and other specified forms of tremor [G25.0, G25.2] Other malaise and fatigue [R53.81, R53.83] Tubular adenoma [D36.9] Tobacco use disorder [F17.200] Family history of colon cancer [Z80.0] Personal history of colonic polyps [Z86.010] COPD (chronic obstructive pulmonary disease) (HCC) [J44.9] Allergies: enviromental [Other] Date Verified: 09/13/18 Lab Values Lab Value Units Date High Low ERIK* 39.5 % 09/08/2018 51.0 39.0 Progress Notes (): Modesta Sharpe APRN.NESS 09/13/2018 11:47 AM Addendum HANDP completed by Dr. Shila Stanton on 09/08/2018. Another HANDP completed by Dr. Jose D Morin on 08/21/2014. Orders for fluid and IV in EPIC. Previous Version Kenyetta Rico RN, RN 09/13/2018 12:09 PM Signed PRE OP LEARNING ASSESSMENT PROCEDURE/SURGERY: GI PROCEDURES: ESU READINESS TO LEARN COGNITIVE ABILITY: Alert and oriented MOTIVATION TO LEARN: Eager Interested FAMILY SUPPORT: Moderate - Family present but overwhelmed PATIENT LEARNS BEST BY: Individual Instruction Verbal Instruction FACTORS AFFECTING LEARNING: None PHYSICAL LIMITATIONS AFFECTING LEARNING: None Electronically Signed By: Kenyetta Rico RN In Department: CEASAR Ramirez MD 09/13/2018 12:53 PM Signed ANESTHESIOLOGY DAY OF SURGERY NOTE SERVICE DATE: 09/13/2018 SERVICE TIME: 12:51 PM : 1940 Procedure(s) (LRB): ENDOSCOPY UPPER GI W/ ENDOSCOPIC ULTRASOUND EXAMINATION,LINEAR W/CYTO (Left) Surgeon(s): Donte Tolliver Estimated body mass index is 22.24 kg/m? as calculated from the following: Height as of this encounter: 182.9 cm (6'). Weight as of this encounter: 74.4 kg (164 lb). Most recent hematocrit and potassium results: Hematocrit 39.5 09/08/2018 Potassium 3.6 06/15/2013 ANES DOS/PREOP NOTE: Vitals: 09/13/18 1100 09/13/18 1132 09/13/18 1133 BP: 131/67 121/67 Pulse: (!) 59 62 Resp: 18 Temp: 36.4 ?C (97.5 ?F) SpO2: 98% 100% Weight: 74.4 kg (164 lb) Height: 182.9 cm (6') ACTIVE PROBLEM LIST Essential and Other Specified Forms of Tremor Other Malaise and Fatigue Tubular Adenoma Tobacco Use Disorder Family History of Colon Cancer Personal History of Colonic Polyps Copd (Chronic Obstructive Pulmonary Disease) (Hcc) PAST MEDICAL HISTORY Diagnosis Date - Benign neoplasm of colon - COPD (chronic obstructive pulmonary disease) (HCC) 12/31/2014 - Diabetes (HCC) - Diverticulosis of colon (without mention of hemorrhage) - Family history of malignant neoplasm of gastrointestinal tract - Internal hemorrhoids without mention of complication - Mental disorder - Pancreatic lesion - Personal history of colonic polyps - Unspecified tinnitus PAST SURGICAL HISTORY Procedure Laterality Date - COLONOSCOPY - DIAGNOSTIC - COLONOSCOPY W/BX 12/12/09 - COLONOSCOPY W/BX 08/21/2014 Repeat colonoscopy in 3 years - PAST SURGICAL HISTORY OF eyelid surgery- 2013, cataract- 2012 - REMOVE TONSILS/ADENOIDS,12+ Y/O FAMILY HISTORY Problem Relation Age of Onset - Colon Cancer Mother of colon cancer- at age 78 - Heart disease Father AFIB - Diabetes Sister Social History: Social History Substance Use Topics - Smoking status: Current Some Day Smoker Types: Cigars - Smokeless tobacco: Never Used Comment: Currently cigars since late , patient smoked for 40 years 1PPD quit 1974 - Alcohol use No No current facility-administered medications on file prior to encounter. Current Outpatient Prescriptions on File Prior to Encounter: linagliptin (TRADJENTA) 5 mg tab Take 1 tablet by mouth once daily. MULTIVITAMIN TAB Take one(1) tablet daily. tamsulosin ER (FLOMAX) 0.4 mg cap Take 0.4 mg by mouth daily at bedtime. Cholecalciferol, Vitamin D3, 1,000 unit cap Take 1 capsule by mouth once daily. Current Facility-Administered Medications: lactated ringers infusion 30 mL/hr INTRAVENOUS CONTINUOUS Modesta E (Airplane [employer]er) Bucur Allergies: ALLERGIES Allergen Reactions - Enviromental [Other] DOS EXAM: Adequate NPO status: Yes Anesthetic risks, benefits, alternatives, personnel and consent discussed: Yes Patient agrees to proceed: Yes Previous Anesthesia: No history of adverse event. Airway Assessment: MP 2; Neck ROM: Full ROM without neurologic symptoms; Airway Evaluation: No significant abnormalities Symptoms of Sleep Apnea: Age over 50 (77 year old) and Male gender Dentition: Dentures are out. Denies loose teeth Additional Physical Exam: Lungs: Patient health status unchanged since recent history and physical. See history and physical for exam findings. Cardiac: Patient health status unchanged since recent history and physical. See history and physical for exam findings. Additional Pertinent Findings: N/A Blood Products: Not anticipated for this procedure. Anesthetic Plan: MAC with Sedation Pain Management Plan: Parenteral or Oral ASA Class: 3 Other Medical Problems: Pancreatic CA (recently diagnosed), COPD, diverticulosis, tobacco abuse Chronic Beta Makenna medication administered within 24 hours: N/A I have interviewed and examined the patient. I have reviewed the medical record and/or the pre-anesthesia evaluation, pertinent labs, and test results. Significant changes in the patient's condition since the History and Physical, not otherwise documented in primary service progress notes: No This contains updated information obtained within 48 hours of Surgery/Procedure. SIGNATURE: Gurvinder Ramirez MD PATIENT NAME: Jenny Nobles DATE: September 13, 2018 TIME: 12:51 PM CSN: [id number] Progress Notes ([facility] ACC 374): Shila Stanton MD 09/08/2018 12:00 PM Signed Please let us know your decision and we will get you scheduled Shila Stanton MD 09/08/2018 12:05 PM Signed Patient referred by: Ciaran Gambino DO [address] [place] [id number] HPI: This is a new patient consult from Dr. Gambino. 77-year-old male with a newly diagnosed pancreatic cancer. He is having some vague back pain for to 3 months was lost about 15 pounds in the last year. He had a cough and his chest x-ray followed by a chest CT which showed a lesion in his pancreas. He has no abdominal pain. He has no nausea or vomiting. He has no fevers or chills. He has no early satiety. He has no evidence of GI bleeding. He has no history of pancreatitis. He has no history of cross-sectional imaging of his abdomen. He is otherwise in his normal state of health. . PAST MEDICAL HISTORY Diagnosis Date - Benign neoplasm of colon - COPD (chronic obstructive pulmonary disease) (HCC) 12/31/2014 - Diverticulosis of colon (without mention of hemorrhage) - Family history of malignant neoplasm of gastrointestinal tract - Internal hemorrhoids without mention of complication - Mental disorder - Personal history of colonic polyps - Unspecified tinnitus PAST SURGICAL HISTORY Procedure Laterality Date - COLONOSCOPY - DIAGNOSTIC - COLONOSCOPY W/BX 12/12/09 - COLONOSCOPY W/BX 08/21/2014 Repeat colonoscopy in 3 years - REMOVE TONSILS/ADENOIDS,12+ Y/O FAMILY HISTORY Problem Relation Age of Onset - Colon Cancer Mother of colon cancer - Heart disease Father AFIB - Diabetes Sister Social History Marital status: Spouse name: Latisha Years of education: Number of children: 1 Occupational History Occupation Employer Comment [employer] Social History Main Topics Smoking status: Current Some Day Smoker Packs/day: 1.00 Years: 50.00 Types: Cigars Last attempt to quit: 05/21/2014 Smokeless tobacco: Never Used Comment: Currently cigars since late Alcohol use: No Drug use: No Other Topics Concern Caffeine Concern Yes Special Diet No Exercise No Social History Narrative , 1 son Retired, 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 tamsulosin ER (FLOMAX) 0.4 mg cap Take 0.4 mg by mouth daily at bedtime. MULTIVITAMIN TAB Take one(1) tablet daily. Cholecalciferol, Vitamin D3, 1,000 unit cap Take 1 capsule by mouth once daily. No current facility-administered medications for this visit. ALLERGIES Allergen Reactions - Enviromental [Other] REVIEW OF SYSTEMS: GENERAL: Unintentional weight loss GI: Negative for abdominal pain, nausea , vomiting, diarrhea, constipation and signs of jaundice Positive for none PHYSICAL EXAM: BP 110/66 Pulse 69 Resp 16 Ht 6' 0 (1.83m) Wt 164 lb (74.4kg) SpO2 98% BMI 22.24 kg/(m2). GENERAL APPEARANCE: Well appearing, alert, in no acute distress, well-hydrated, well nourished.. ABDOMEN: Normal abdominal exam, Abdomen soft, non-tender. Bowel sounds normal. No masses, organomegaly NEURO: Alert, oriented x3, no asterixis, speech clear and articulate and PAULA HEART: regular rate and rhythm, without murmur LUNGS: clear to auscultation, without rales or wheeze, good air exchange DATA: Diagnostic tests reviewed for today's visit: Most recent imaging A total of 45 minutes was spent in direct patient contact. Greater than 50% of the direct patient contact time was spent in counseling or coordination of care. ASSESSMENT / PLAN: 1. Malignant neoplasm of body of pancreas (HCC) I reviewed his CT scan from [facility]. This shows a lesion in the body of the pancreas which is involving the portal splenic confluence. This is encasing the hepatic artery. 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 He also has an adrenal nodule which may likely be a metastatic deposit. I long discussion with him and his and told him that because of his vascular involvement he has borderline resectable. He is best suited this time for neoadjuvant chemotherapy. The patient is hesitant about undergoing chemotherapy. He will her office know what he wants to do. If he wants to proceed forward with chemotherapy I will set him up with an image guided versus endoscopic biopsy. I will check tumor markers in the interim. - CA 19-9 BLD; Future - CHROMOGRANIN A; Future - ACTIVATED PTT; Future - CBC; Future - PROTHROMBIN TIME/PT; Future - IMAGING GUIDED BIOPSY PANCREAS Shila Stanton MD OPERATIVE NO Observed: 09/13/2018 Status: COMPLETED Source: [place] 12:00 AM [facility] REPOSITORY HNO ID: [id number] Author: Donte Tolliver Service: General Surgery Author Type: Physician Type: Operative Report Filed: 09/19/2018 9:34 AM Note Text: [facility] - Operative Report JENNY NOBLES : 1940 AGE: 77. SEX: M PATIENT TYPE: [place] [facility] [place] [facility] LOCATION: [facility] ATTENDING PHYSICIAN: Donte TOLLIVER CSN NUMBER: [id number] DATE OF SURGERY/PROCEDURE: 09/13/2018 INCISION/PROCEDURE START TIME: 1:15 PM INCISION CLOSE/PROCEDURE END TIME: 2:07 PM PREOPERATIVE DIAGNOSIS: Mass of the pancreatic body suspicious for cancer. POSTOPERATIVE DIAGNOSIS: Mass of the pancreatic body suspicious for cancer. SURGEON: Donte Tolliver MD RETAIL STORE CLERK: No Additional Staff SURGERY/PROCEDURE: Esophagogastroduodenoscopy with endoscopic ultrasound and fine- needle aspiration biopsy of a pancreatic mass. ANESTHESIA: MAC. INDICATIONS: Mr. Nobles is a 77-year-old male who was recently found to have a mass in the body of his pancreas on CT scan. This was done on workup for back pain. On CT scan, there is concern that it is not resectable based on the invasion of his splenic vessels. Given the need for a definitive biopsy, we discussed the procedure with the risks, benefits, alternatives, and consent was obtained. FINDINGS: On limited endoscopic views, the stomach and duodenum appeared normal. Using the linear echoendoscope, the mass was readily identified in the body and tail area of the pancreas. In cross-section, it measured approximately 3.5 x 3.2 centimeters. However, the entire pancreas up to the head appeared abnormal. There were multiple abnormal appearing lymph nodes in the celiac and peripancreatic area, which were up to about 10 mm in size. These are clinically felt to be likely involved. The common bile duct was approximately 4-5 mm in diameter and appeared normal. A total of 3 passes were made into the mass using a 22-gauge needle and satisfactory samples were obtained. There was no evidence of any complication during the procedure. DESCRIPTION OF PROCEDURE: After satisfactory sedation with the patient on his left side, a linear echoendoscope was inserted from the mouth and gradually advanced down through the esophagus into the stomach. Endoscopic images were obtained of the stomach, antrum, and duodenum, which were limited but normal. Ultrasound imaging was then obtained of the head of the pancreas, common bile duct, portal area. Scope was withdrawn into the stomach and up into the celiac area and the celiac vessels, body and tail of the pancreas were examined. After identifying the mass and positioning it optimally, a total of 3 passes were made into the mass using a 22- gauge Shark[employer] needle. After obtaining adequate samples, the area was again re- examined and appeared unchanged on ultrasound. The excess air was then aspirated from the stomach and the scope was withdrawn. He was then awakened and transferred back to the recovery area in good condition. Donte Tolliver MD VILLAGRAN:[id number] /[id number] CBC Collected: 09/08/2018 Status: F Source: [place] 3:25 PM [facility] REPOSITORY TYPE CODE TESTS RESULT OUT OF REFERENCE UNITS RANGE LAB WBC 3.70-11.00 k/uL WBC 7.28 LAB RBC 4.20-6.00 m/uL RBC 4.21 LAB HGB 13.0-17.0 g/dL Hemoglobin 13.1 LAB HCT 39.0-51.0 % Hematocrit 39.5 LAB MCV 80.0-100.0 fL MCV 93.8 LAB MCH 26.0-34.0 pG MCH 31.1 LAB MCHC 30.5-36.0 g/dL MCHC 33.2 LAB RDWCV 11.5-15.0 % RDW-CV 13.3 LAB PLTCT 150-400 k/uL Platelet Count 313 LAB MPV 9.0-12.7 fL MPV 9.9 LAB ABSNUC <0.01 k/uL Absolute nRBC <0.01 Performed By: #### CBC #### [facility] [address] [place], [place] [address] PROTIME Collected: 09/08/2018 Status: F Source: [place] 3:24 PM [facility] REPOSITORY TYPE CODE TESTS RESULT OUT OF RANGE REFERENCE UNITS LAB PSEC 9.7-13.0 sec PT Sec 10.9 LAB INR 0.9-1.3 PT INR 1.0 Result Comment: Vitamin K Antagonist (VKA) Therapeutic Range: INR 2 to 3 (Target INR of 2.5) Note: For patients treated with VKA drugs, such as warfarin, the [place] [employer] 2012 Guideline recommends a therapeutic INR range of 2 to 3 (target INR of 2.5). This recommendation includes high-risk patients with antiphospholipid syndrome with previous arterial or venous thromboembolism, current-generation mechanical or bioprosthetic aortic heart valve replacement. Note: Patients with mechanical aortic valve replacement and additional risk factors for thromboembolic events (atrial fibrillation, previous thromboembolism, LV dysfunction, hypercoagulable conditions) or an older generation mechanical AVR (i.e., ball in-Cage) or any mechanical MVR should have a INR therapeutic range of 2.5 to 3.5 (target INR of 3). Sherry GH, et al. Chest 2012, 141:7S-47S Jackie RA, et al. [facility] 2017, 70: 252-289 Performed By: #### PT, PTT, CA199, CHROMA #### [facility] [address] [place], [place] [address] APTT Collected: 09/08/2018 Status: F Source: [place] 3:24 PM [facility] REPOSITORY TYPE CODE TESTS RESULT OUT OF RANGE REFERENCE UNITS LAB APTT 23.0-32.4 sec APTT 27.3 Result Comment: Unfractionated Heparin Therapeutic Ranges: Standard Heparin Nomogram: 53 to 78 seconds (anti-Xa level of 0.3 to 0.7 U/ml) Low Dose/ACS Nomogram: 49 to 67 seconds (anti-Xa level of 0.2 to 0.5 U/ml) Stroke Treatment Nomogram: 49 to 67 seconds (anti-Xa level of 0.2 to 0.5 U/ml) Note: The APTT therapeutic range has been determined for the current lot of laboratory APTT reagent in use throughout the [facility]. Performed By: #### PT, PTT, CA199, CHROMA #### [facility] [address] [place], [place] [address] CA 19-9 Collected: 09/08/2018 Status: F Source: [place] 3:24 PM [facility] REPOSITORY TYPE CODE TESTS RESULT OUT OF RANGE REFERENCE UNITS LAB CA199 <36 U/mL High CA 19-9 [id number] Result Comment: Test analyzed by the [employer] DxI method. Result rechecked. Performed By: #### PT, PTT, CA199, CHROMA #### [facility] [address] [place], [place] [address] CHROMOGRANIN A Collected: 09/08/2018 Status: F Source: [place] 3:24 PM [facility] REPOSITORY TYPE CODE TESTS RESULT OUT OF REFERENCE UNITS RANGE LAB CHROMA <98 ng/mL Chromogranin A 91 Result Comment: This test is performed using the [employer] MFW-AXCNA-RG kit. Results obtained with different methods or kits cannot be used interchangeably. This test was developed and its performance characteristics determined by [facility] [place] ([facility]). It has not been cleared or approved by the FDA. [facility] is regulated under CLIA as qualified to perform high-complexity testing. This test is used for clinical purposes. It should not be regarded as investigational or for research. Performed By: #### PT, PTT, CA199, CHROMA #### [facility] [address] [place], [place] [address] PROGRESS Observed: 09/08/2018 Status: COMPLETED Source: [place] 12:02 PM [facility] REPOSITORY HNO ID: [id number] Author: Shila Stanton Service: (none) Author Type: Physician Type: Progress Notes Filed: 09/08/2018 12:05 PM Note Text: Patient referred by: Ciaran Gambino, DO [address] [facility] [address] HPI: This is a new patient consult from Dr. Gambino. 77-year-old male with a newly diagnosed pancreatic cancer. He is having some vague back pain for to 3 months was lost about 15 pounds in the last year. He had a cough and his chest x-ray followed by a chest CT which showed a lesion in his pancreas. He has no abdominal pain. He has no nausea or vomiting. He has no fevers or chills. He has no early satiety. He has no evidence of GI bleeding. He has no history of pancreatitis. He has no history of cross-sectional imaging of his abdomen. He is otherwise in his normal state of health. . PAST MEDICAL HISTORY Diagnosis Date - Benign neoplasm of colon - COPD (chronic obstructive pulmonary disease) (HCC) 12/31/2014 - Diverticulosis of colon (without mention of hemorrhage) - Family history of malignant neoplasm of gastrointestinal tract - Internal hemorrhoids without mention of complication - Mental disorder - Personal history of colonic polyps - Unspecified tinnitus PAST SURGICAL HISTORY Procedure Laterality Date - COLONOSCOPY - DIAGNOSTIC - COLONOSCOPY W/BX 12/12/09 - COLONOSCOPY W/BX 08/21/2014 Repeat colonoscopy in 3 years - REMOVE TONSILS/ADENOIDS,12+ Y/O FAMILY HISTORY Problem Relation Age of Onset - Colon Cancer Mother of colon cancer - Heart disease Father AFIB - Diabetes Sister Social History Marital status: Spouse name: Latisha Years of education: Number of children: 1 Occupational History Occupation Employer Comment [employer] Social History Main Topics Smoking status: Current Some Day Smoker Packs/day: 1.00 Years: 50.00 Types: Cigars Last attempt to quit: 05/21/2014 Smokeless tobacco: Never Used Comment: Currently cigars since late Alcohol use: No Drug use: No Other Topics Concern Caffeine Concern Yes Special Diet No Exercise No Social History Narrative , 1 son Retired, [employer] lives in [facility] [place] Current Outpatient Prescriptions: linagliptin (TRADJENTA) 5 mg tab Take 1 tablet by mouth once daily. tamsulosin ER (FLOMAX) 0.4 mg cap Take 0.4 mg by mouth daily at bedtime. MULTIVITAMIN TAB Take one(1) tablet daily. Cholecalciferol, Vitamin D3, 1,000 unit cap Take 1 capsule by mouth once daily. No current facility-administered medications for this visit. ALLERGIES Allergen Reactions - Enviromental [Other] REVIEW OF SYSTEMS: GENERAL: Unintentional weight loss GI: Negative for abdominal pain, nausea , vomiting, diarrhea, constipation and signs of jaundice Positive for none PHYSICAL EXAM: BP 110/66 Pulse 69 Resp 16 Ht 6' 0 (1.83m) Wt 164 lb (74.4kg) SpO2 98% BMI 22.24 kg/(m2). GENERAL APPEARANCE: Well appearing, alert, in no acute distress, well-hydrated, well nourished.. ABDOMEN: Normal abdominal exam, Abdomen soft, non-tender. Bowel sounds normal. No masses, organomegaly NEURO: Alert, oriented x3, no asterixis, speech clear and articulate and PAULA HEART: regular rate and rhythm, without murmur LUNGS: clear to auscultation, without rales or wheeze, good air exchange DATA: Diagnostic tests reviewed for today's visit: Most recent imaging A total of 45 minutes was spent in direct patient contact. Greater than 50% of the direct patient contact time was spent in counseling or coordination of care. ASSESSMENT / PLAN: 1. Malignant neoplasm of body of pancreas (HCC) I reviewed his CT scan from [facility]. This shows a lesion in the body of the pancreas which is involving the portal splenic confluence. This is encasing the hepatic artery. 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 He also has an adrenal nodule which may likely be a metastatic deposit. I long discussion with him and his and told him that because of his vascular involvement he has borderline resectable. He is best suited this time for neoadjuvant chemotherapy. The patient is hesitant about undergoing chemotherapy. He will her office know what he wants to do. If he wants to proceed forward with chemotherapy I will set him up with an image guided versus endoscopic biopsy. I will check tumor markers in the interim. - CA 19-9 BLD; Future - CHROMOGRANIN A; Future - ACTIVATED PTT; Future - CBC; Future - PROTHROMBIN TIME/PT; Future - IMAGING GUIDED BIOPSY PANCREAS Shila Stanton MD CNOV Observed: 09/08/2018 Status: COMPLETED Source: [place] 11:30 AM [facility] REPOSITORY Office Visit (AGGENS1) JENNY NOBLES ([id number]) 1940 M Date Time Provider Department 09/08/18 11:30 AM SHILA STANTON AGGENS1 During your visit today, we recorded the following information about you: Pulse Respiration Blood pressure Weight 69/minute 16/minute 110/66 74.4 kg Height 1.829 m Shila Stanton MD 09/08/2018 12:00 PM Signed Please let us know your decision and we will get you scheduled Shila Stanton MD 09/08/2018 12:05 PM Signed Patient referred by: Ciaran Gambino DO [address] [facility] [address] HPI: This is a new patient consult from Dr. Gambino. 77-year-old male with a newly diagnosed pancreatic cancer. He is having some vague back pain for to 3 months was lost about 15 pounds in the last year. He had a cough and his chest x-ray followed by a chest CT which showed a lesion in his pancreas. He has no abdominal pain. He has no nausea or vomiting. He has no fevers or chills. He has no early satiety. He has no evidence of GI bleeding. He has no history of pancreatitis. He has no history of cross-sectional imaging of his abdomen. He is otherwise in his normal state of health. . PAST MEDICAL HISTORY Diagnosis Date - Benign neoplasm of colon - COPD (chronic obstructive pulmonary disease) (HCC) 12/31/2014 - Diverticulosis of colon (without mention of hemorrhage) - Family history of malignant neoplasm of gastrointestinal tract - Internal hemorrhoids without mention of complication - Mental disorder - Personal history of colonic polyps - Unspecified tinnitus PAST SURGICAL HISTORY Procedure Laterality Date - COLONOSCOPY - DIAGNOSTIC - COLONOSCOPY W/BX 12/12/09 - COLONOSCOPY W/BX 08/21/2014 Repeat colonoscopy in 3 years - REMOVE TONSILS/ADENOIDS,12+ Y/O FAMILY HISTORY Problem Relation Age of Onset - Colon Cancer Mother of colon cancer - Heart disease Father AFIB - Diabetes Sister Social History Marital status: Spouse name: Latisha Years of education: Number of children: 1 Occupational History Occupation Employer Comment [employer] Social History Main Topics Smoking status: Current Some Day Smoker Packs/day: 1.00 Years: 50.00 Types: Cigars Last attempt to quit: 05/21/2014 Smokeless tobacco: Never Used Comment: Currently cigars since late Alcohol use: No Drug use: No Other Topics Concern Caffeine Concern Yes Special Diet No Exercise No Social History Narrative , 1 son Retired, [employer] lives in [facility] [place] Current Outpatient Prescriptions: linagliptin (TRADJENTA) 5 mg tab Take 1 tablet by mouth once daily. tamsulosin ER (FLOMAX) 0.4 mg cap Take 0.4 mg by mouth daily at bedtime. MULTIVITAMIN TAB Take one(1) tablet daily. Cholecalciferol, Vitamin D3, 1,000 unit cap Take 1 capsule by mouth once daily. No current facility-administered medications for this visit. ALLERGIES Allergen Reactions - Enviromental [Other] REVIEW OF SYSTEMS: GENERAL: Unintentional weight loss GI: Negative for abdominal pain, nausea , vomiting, diarrhea, constipation and signs of jaundice Positive for none PHYSICAL EXAM: BP 110/66 Pulse 69 Resp 16 Ht 6' 0 (1.83m) Wt 164 lb (74.4kg) SpO2 98% BMI 22.24 kg/(m2). GENERAL APPEARANCE: Well appearing, alert, in no acute distress, well-hydrated, well nourished.. ABDOMEN: Normal abdominal exam, Abdomen soft, non-tender. Bowel sounds normal. No masses, organomegaly NEURO: Alert, oriented x3, no asterixis, speech clear and articulate and PAULA HEART: regular rate and rhythm, without murmur LUNGS: clear to auscultation, without rales or wheeze, good air exchange DATA: Diagnostic tests reviewed for today's visit: Most recent imaging A total of 45 minutes was spent in direct patient contact. Greater than 50% of the direct patient contact time was spent in counseling or coordination of care. ASSESSMENT / PLAN: 1. Malignant neoplasm of body of pancreas (HCC) I reviewed his CT scan from [facility]. This shows a lesion in the body of the pancreas which is involving the portal splenic confluence. This is encasing the hepatic artery. 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 He also has an adrenal nodule which may likely be a metastatic deposit. I long discussion with him and his and told him that because of his vascular involvement he has borderline resectable. He is best suited this time for neoadjuvant chemotherapy. The patient is hesitant about undergoing chemotherapy. He will her office know what he wants to do. If he wants to proceed forward with chemotherapy I will set him up with an image guided versus endoscopic biopsy. I will check tumor markers in the interim. - CA 19-9 BLD; Future - CHROMOGRANIN A; Future - ACTIVATED PTT; Future - CBC; Future - PROTHROMBIN TIME/PT; Future - IMAGING GUIDED BIOPSY PANCREAS Shila Stanton MD Referring Provider: CIARAN GAMBINO [[id number]] Allergies As of Date: 09/08/2018 Noted Allergy Reaction enviromental [Other] 03/09/2010 Date Reviewed: 09/08/2018 Reviewed by: Shila Stanton - Fully Assessed Reason for Visit: New Patient [172] Cmt: New patient referred fo pancreatic cancer by Dr. Gambino. Reason For Visit History Recorded Primary Visit Diagnosis:Malignant neoplasm of body of pancreas (HCC) [C25.1] Order(s):CA 19-9 BLD [VXYY463] Order #: [id number] FUTURE CHROMOGRANIN A [SQCHROMA] Order #: [id number] FUTURE ACTIVATED PTT [SQPTT] Order #: [id number] FUTURE CBC [SQCBC] Order #: [id number] FUTURE PROTHROMBIN TIME/PT [SQPT] Order #: [id number] FUTURE IMAGING GUIDED BIOPSY PANCREAS [9709024] Order #: [id number] Prescriptions as of 09/08/2018 Sig: LINAGLIPTIN 5 MG TABLET Take 1 tablet by mouth once d* TAMSULOSIN 0.4 MG CAPSULE Take 0.4 mg by mouth daily at* MULTIVITAMIN TABLET Take one(1) tablet daily. 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 Tobacco Use Disorder [F17.200] INVALID FOR* Family history of colon cancer [Z80.0] INVALID FOR* Personal history of colonic polyps [Z86.010] INVALID FOR* COPD (chronic obstructive pulmonary disease) (H*INVALID FOR* Other instructions from your clinician: Please let us know your decision and we will get you scheduled Letter Text Encounter Status:Closed by SHILA STANTON MD on 09/08/18 CNOVSP Observed: 09/06/2018 Status: COMPLETED Source: [place] 2:40 PM [facility] REPOSITORY Visit (SP) Office (SPIKE) JENNY NOBLES ([id number]) 1940 M Date Time Provider Department 09/06/18 2:40 PM CIARAN GAMBINO During your visit today, we recorded the following information about you: Temperature Pulse Blood pressure Weight 98.4 degrees 69/minute 121/61 74.8 kg Height 1.842 m Ciaran Gambino DO 09/07/2018 1:14 PM Signed Consult requested by Dr. Delvalle for my opinion and recommendations for a patient recently found to have a pancreatic mass. The impression and plan will be communicated by way of the shared electronic record. HPI: Patient is a 77-year-old male was past medical history significant for COPD. He began experiencing upper lumbar/lower thoracic back pain about 2-3 months ago. He's noticed some decline in appetite. He's not had any episode of jaundice. He had a chest x-ray which demonstrated a right lower lobe infiltrate and subsequently underwent a CT of the chest. CT chest 08/28/2018: Mild pulmonary emphysema. Diffuse pulmonary hyperinflation. Dense right lower lobe pneumonia. Milder multifocal pneumonia in the other pulmonary lobes. Focal pneumonia in the right upper lobe, left lower lobe and lingula contains areas of cavitation No well-defined lung mass is seen. There is no demonstrated pleural abnormality. Normal heart and pericardium. Normal mediastinum. Normal hilar regions. Normal enhanced pulmonary arteries. Normal aorta arch and descending thoracic aorta. There are multi-level degenerative changes of the thoracic spine. Multiple gallstones. Fatty liver. Several faint areas of increased and decreased density are noted throughout the liver and several low density areas are present in the spleen. Hepatic and/or splenic metastatic disease is not excluded. Indeterminate nonfatty 3.4 x 2.4 cm left adrenal mass. Ill-defined mass in the body of the pancreas measuring 5.5 x 3.4 cm on image 139 of series 1002. The diagnosis of exclusion is pancreatic malignancy. Multiple shotty peripancreatic and periportal lymph nodes are present. IMPRESSION: Dense right lower lobe pneumonia. Milder focal pneumonia is present in the other pulmonary lobes. However, several of these focal areas of alveolar disease contain cavitation. Differential includes multiple areas of cavitary infection, inflammation, and neoplasm. Mass in the body of the pancreas. The diagnosis of exclusion is pancreatic malignancy. Indeterminate mass in the left adrenal gland. Metastatic disease is not excluded. Metastatic disease cannot be excluded involving the liver and spleen as described. Multiple gallstones. CT A/P 08/30/2018: FINDINGS: There is minor interstitial thickening at both lung bases. There is focal peripheral consolidation in both lower lobes greater on the right. The visualized portions of the heart are within normal limits. Small hiatal hernia is present Liver is fatty infiltrated without mass or bile duct dilatation.. Multiple calcified stones in the gallbladder without evidence for acute cholecystitis. Normal spleen. There is a large heterogeneous solid mass measuring approximately 5.6 x 2.75 cm involving much of the body and tail of the pancreas. There is encasement and occlusion of the splenic vein with associated perigastric venous collaterals. Right adrenal is normal. There is a solid adrenal mass on the left measuring 2.8 x 2.6 cm suspicious for metastatic disease Normal right kidney. Normal left kidney. Normal visualized stomach. Normal small intestine. Prominent diverticular changes within the descending and sigmoid colon without evidence for acute diverticulitis. The appendix is visualized and appears normal. 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 No evidence for periaortic leak or dissection.. Normal inferior vena cava. Normal retroperitoneum. Normal urinary bladder. Nonspecific enlargement of the prostate. There is a small amount of ascites in the pelvis. Small right inguinal hernia containing loop of bowel without evidence for proximal obstruction or incarceration.. Lumbar spine demonstrates moderate spondylosis.. IMPRESSION: Findings consistent with large pancreatic neoplasm involving much of the body and tail of the gland encasing and occluding the splenic vein in association with perigastric venous collaterals. Solid mass in left adrenal suspicious for metastasis which may be further assessed with MRI. Mild ascites Cholelithiasis without evidence for acute cholecystitis. PMH, medications and allergies personally reviewed by me today. Any changes documented in appropriate section. ROS: Constitutional: Denies episodes of fever and night sweats. Not significantly fatigued. Neuro: Denies VILLAGRAN. Occasional orthostasis. Denies symptoms of neuropathy. HEENT: No recent change in voice, vision or hearing. Resp: Denies shortness of breath at rest. CVS: Denies exertional chest pain, PND, orthopnea and LE edema. GI: Denies dysgeusia. Denies symptoms of stomatitis. Denies dysphagia and odynophagia. : Denies dysuria or gross hematuria. Endo: Denies hot flashes. Denies polyuria and polydipsia. Denies heat and cold intolerance. Musculoskeletal: See above. Derm: Denies rash. Denies jaundice and diffuse pruritis. Heme: Denies unusual bleeding and unexplained bruising. Psych: Normal mood. PHYSICAL EXAM: Vitals: Blood pressure 121/61, pulse 69, temperature 36.9 ?C (98.4 ?F), temperature source Temporal Artery, height 184.2 cm (6' 0.5), weight 74.8 kg (165 lb). Well-appearing and in no acute distress. EYES: Sclerae are anicteric bilaterally. NECK: Supple. LYMPHATIC: There is no palpable cervical or supraclavicular adenopathy. RESPIRATORY: Inspiratory breath sounds are of diminished intensity in all knight. CARDIOVASCULAR: Rhythm is regular. Normal intensity S1/S2. ABDOMEN: The abdomen is nondistended. No tenderness. Extremities: No swelling or edema. SKIN: No jaundice or rash. NEUROLOGIC: float phlebotomist II-XII are grossly intact. No focal motor weakness. 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 -Discussed with patient and his the approach to diagnosis which would include EGD/EUS or open biopsy. Discussed case with Dr. Stanton who graciously agreed to see the patient this week to coordinate. Plan: -Referral to Dr. Stanton. Ciaran Gambino, DO Salma Walton LPN 09/06/2018 2:36 PM Signed New patient. Discuss possible pancreas cancer. Salma Walton LPN Referring Provider: JENNY DELVALLE [[id number]] Allergies As of Date: 09/06/2018 Noted Allergy Reaction enviromental [Other] 03/09/2010 Date Reviewed: 09/06/2018 Reviewed by: Salma Walton LPN - Fully Assessed Reason for Visit: New Patient [172] Primary Visit Diagnosis:Mass of pancreas [K86.9] Other Visit Diagnosis:Adrenal tumor [D49.7] Prescriptions as of 09/06/2018 Sig: LINAGLIPTIN 5 MG TABLET Take 1 tablet by mouth once d* TAMSULOSIN 0.4 MG CAPSULE Take 0.4 mg by mouth daily at* MULTIVITAMIN TABLET Take one(1) tablet daily. CHOLECALCIFEROL (VITAMIN D3) * Take 1 capsule by mouth once * Medication notes this encounter CHOLECALCIFEROL (VITAMIN D3) 1,000 UNIT CAPSULE >> Salma Walton LPN 09/06/2018 2:27 PM >> SALMA WALTON LPN Sep 06, 2018 2:27 PM discontinued Problem List As Of Date 09/06/2018 Noted Resolved TREMOR NEC [G25.0, G25.2] INVALID FOR* MALAISE AND FATIGUE NEC [R53.81, R53.83] INVALID FOR* Tubular Adenoma [D36.9] INVALID FOR* More... Tobacco Use Disorder [F17.200] INVALID FOR* Family history of colon cancer [Z80.0] INVALID FOR* Personal history of colonic polyps [Z86.010] INVALID FOR* COPD (chronic obstructive pulmonary disease) (H*INVALID FOR* Visit Notes: >> Salma Pk YUNG TueSep 06, 2018 2:28 PM Status: Signed New patient. Discuss possible pancreas cancer. Salma Walton LPN Encounter Status:Closed by CIARAN GAMBINO DO on 09/07/18 PROGRESS Observed: 09/06/2018 Status: COMPLETED Source: [place] 9:07 AM [facility] REPOSITORY HNO ID: [id number] Author: Ciaran Gambino Service: (none) Author Type: Physician Type: Progress Notes Filed: 09/07/2018 1:14 PM Note Text: Consult requested by Dr. Delvalle for my opinion and recommendations for a patient recently found to have a pancreatic mass. The impression and plan will be communicated by way of the shared electronic record. HPI: Patient is a 77-year-old male was past medical history significant for COPD. He began experiencing upper lumbar/lower thoracic back pain about 2-3 months ago. He's noticed some decline in appetite. He's not had any episode of jaundice. He had a chest x-ray which demonstrated a right lower lobe infiltrate and subsequently underwent a CT of the chest. CT chest 08/28/2018: Mild pulmonary emphysema. Diffuse pulmonary hyperinflation. Dense right lower lobe pneumonia. Milder multifocal pneumonia in the other pulmonary lobes. Focal pneumonia in the right upper lobe, left lower lobe and lingula contains areas of cavitation No well-defined lung mass is seen. There is no demonstrated pleural abnormality. Normal heart and pericardium. Normal mediastinum. Normal hilar regions. Normal enhanced pulmonary arteries. Normal aorta arch and descending thoracic aorta. There are multi-level degenerative changes of the thoracic spine. Multiple gallstones. Fatty liver. Several faint areas of increased and decreased density are noted throughout the liver and several low density areas are present in the spleen. Hepatic and/or splenic metastatic disease is not excluded. Indeterminate nonfatty 3.4 x 2.4 cm left adrenal mass. Ill-defined mass in the body of the pancreas measuring 5.5 x 3.4 cm on image 139 of series 1002. The diagnosis of exclusion is pancreatic malignancy. Multiple shotty peripancreatic and periportal lymph nodes are present. IMPRESSION: Dense right lower lobe pneumonia. Milder focal pneumonia is present in the other pulmonary lobes. However, several of these focal areas of alveolar disease contain cavitation. Differential includes multiple areas of cavitary infection, inflammation, and neoplasm. Mass in the body of the pancreas. The diagnosis of exclusion is pancreatic malignancy. Indeterminate mass in the left adrenal gland. Metastatic disease is not excluded. Metastatic disease cannot be excluded involving the liver and spleen as described. Multiple gallstones. CT A/P 08/30/2018: FINDINGS: There is minor interstitial thickening at both lung bases. There is focal peripheral consolidation in both lower lobes greater on the right. The visualized portions of the heart are within normal limits. Small hiatal hernia is present Liver is fatty infiltrated without mass or bile duct dilatation.. Multiple calcified stones in the gallbladder without evidence for acute cholecystitis. Normal spleen. There is a large heterogeneous solid mass measuring approximately 5.6 x 2.75 cm involving much of the body and tail of the pancreas. There is encasement and occlusion of the splenic vein with associated perigastric venous collaterals. Right adrenal is normal. There is a solid adrenal mass on the left measuring 2.8 x 2.6 cm suspicious for metastatic disease Normal right kidney. Normal left kidney. Normal visualized stomach. Normal small intestine. Prominent diverticular changes within the descending and sigmoid colon without evidence for acute diverticulitis. The appendix is visualized and appears normal. 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 No evidence for periaortic leak or dissection.. Normal inferior vena cava. Normal retroperitoneum. Normal urinary bladder. Nonspecific enlargement of the prostate. There is a small amount of ascites in the pelvis. Small right inguinal hernia containing loop of bowel without evidence for proximal obstruction or incarceration.. Lumbar spine demonstrates moderate spondylosis.. IMPRESSION: Findings consistent with large pancreatic neoplasm involving much of the body and tail of the gland encasing and occluding the splenic vein in association with perigastric venous collaterals. Solid mass in left adrenal suspicious for metastasis which may be further assessed with MRI. Mild ascites Cholelithiasis without evidence for acute cholecystitis. PMH, medications and allergies personally reviewed by me today. Any changes documented in appropriate section. ROS: Constitutional: Denies episodes of fever and night sweats. Not significantly fatigued. Neuro: Denies VILLAGRAN. Occasional orthostasis. Denies symptoms of neuropathy. HEENT: No recent change in voice, vision or hearing. Resp: Denies shortness of breath at rest. CVS: Denies exertional chest pain, PND, orthopnea and LE edema. GI: Denies dysgeusia. Denies symptoms of stomatitis. Denies dysphagia and odynophagia. : Denies dysuria or gross hematuria. Endo: Denies hot flashes. Denies polyuria and polydipsia. Denies heat and cold intolerance. Musculoskeletal: See above. Derm: Denies rash. Denies jaundice and diffuse pruritis. Heme: Denies unusual bleeding and unexplained bruising. Psych: Normal mood. PHYSICAL EXAM: Vitals: Blood pressure 121/61, pulse 69, temperature 36.9 ?C (98.4 ?F), temperature source Temporal Artery, height 184.2 cm (6' 0.5), weight 74.8 kg (165 lb). Well-appearing and in no acute distress. EYES: Sclerae are anicteric bilaterally. NECK: Supple. LYMPHATIC: There is no palpable cervical or supraclavicular adenopathy. RESPIRATORY: Inspiratory breath sounds are of diminished intensity in all knight. CARDIOVASCULAR: Rhythm is regular. Normal intensity S1/S2. ABDOMEN: The abdomen is nondistended. No tenderness. Extremities: No swelling or edema. SKIN: No jaundice or rash. NEUROLOGIC: float phlebotomist II-XII are grossly intact. No focal motor weakness. 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 -Discussed with patient and his the approach to diagnosis which would include EGD/EUS or open biopsy. Discussed case with Dr. Stanton who graciously agreed to see the patient this week to coordinate. Plan: -Referral to Dr. Stanton. Ciaran Gambino, DO ABDOMEN/PELVIS WITH Observed: 08/30/2018 Status: F Source: [place] CONTRAST 2:00 PM [facility] REPOSITORY [facility] Imaging Services [address] [place] [address] Abdomen/Pelvis WITH Contrast MR#: [id number] Acct: [id number] Name: JENNY NOBLES Rep #: [id number] : 1940 M 77 From: Stuart Thomas MD PCP: Jenny Delvalle MD Status: REG CLI Study: Abdomen/Pelvis WITH Contrast Date of Exam: 08/30/18 Exam# [id number] Ordering Dr: Jenny Delvalle MD STUDY: CT ABDOMEN AND PELVIS WITH CONTRAST REASON FOR EXAM: Male, 77 years old. Pancreatic mass RADIATION DOSAGE (If Supplied By Facility): CTDIvol = ( 20.89 ) mGy, DLP = ( 819.42 ) mGycm TECHNIQUE: Transaxial images were obtained from the dome of the diaphragm to the symphysis pubis without oral contrast. 100ML ml of Isovue 300 contrast was administered. Sagittal and coronal images were reconstructed. Individualized dose optimization techniques were used for this CT. COMPARISON: None. FINDINGS: There is minor interstitial thickening at both lung bases. There is focal peripheral consolidation in both lower lobes greater on the right. The visualized portions of the heart are within normal limits. Small hiatal hernia is present Liver is fatty infiltrated without mass or bile duct dilatation.. Multiple calcified stones in the gallbladder without evidence for acute cholecystitis. Normal spleen. There is a large heterogeneous solid mass measuring approximately 5.6 x 2.75 cm involving much of the body and tail of the pancreas. There is encasement and occlusion of the splenic vein with associated perigastric venous collaterals. Right adrenal is normal. There is a solid adrenal mass on the left measuring 2.8 x 2.6 cm suspicious for metastatic disease Normal right kidney. Normal left kidney. Normal visualized stomach. Normal small intestine. Prominent diverticular changes within the descending and sigmoid colon without evidence for acute diverticulitis. The appendix is visualized and appears normal. 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 No evidence for periaortic leak or dissection.. Normal inferior vena cava. Normal retroperitoneum. Normal urinary bladder. Nonspecific enlargement of the prostate. There is a small amount of ascites in the pelvis. Small right inguinal hernia containing loop of bowel without evidence for proximal obstruction or incarceration.. Lumbar spine demonstrates moderate spondylosis.. 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 Solid mass in left adrenal suspicious for metastasis which may be further assessed with MRI. Mild ascites Cholelithiasis without evidence for acute cholecystitis.. Electronically Signed: Stuart Thomas MD at 17:00 EST , Service support , CC: Jenny Delvalle MD Import/Export Freight Forwarder: Signed SR-ABDOMEN/PELVIS WITH Observed: 08/30/2018 Status: F Source: [place] CONTRAST IMPORT 12:00 AM [facility] REPOSITORY Images were obtained outside of [facility] [id number] CHEST WITH CONTRAST Observed: 08/28/2018 Status: F Source: [place] 2:50 PM [facility] REPOSITORY [facility] Imaging Services [address] [place] [address] Chest WITH Contrast MR#: [id number] Acct: [id number] Name: JENNY NOBLES Sukumar Rep #: [id number] : 1940 M 77 From: Wood Hamlin MD PCP: Jenny Delvalle MD Status: REG CLI Study: Chest WITH Contrast Date of Exam: 08/28/18 Exam# [id number] Ordering Dr: Jenny Delvalle MD STUDY: CT CHEST WITH CONTRAST REASON FOR EXAM: Male, 77 years old. Pulmonary mass seen on chest x-ray RADIATION DOSAGE (If Supplied By Facility): CTDIvol = ( 18.94 ) mGy, DLP = ( 606.20 ) mGycm TECHNIQUE: Transaxial imaging was performed following intravenous administration of 100ML ml of Isovue 300 contrast material. Individualized dose optimization techniques were used for this CT. COMPARISON: 08/22/2018 FINDINGS: Mild pulmonary emphysema. Diffuse pulmonary hyperinflation. Dense right lower lobe pneumonia. Milder multifocal pneumonia in the other pulmonary lobes. Focal pneumonia in the right upper lobe, left lower lobe and lingula contains areas of cavitation No well-defined lung mass is seen. There is no demonstrated pleural abnormality. Normal heart and pericardium. Normal mediastinum. Normal hilar regions. Normal enhanced pulmonary arteries. Normal aorta arch and descending thoracic aorta. There are multi-level degenerative changes of the thoracic spine. Multiple gallstones. Fatty liver. Several faint areas of increased and decreased density are noted throughout the liver and several low density areas are present in the spleen. Hepatic and/or splenic metastatic disease is not excluded. Indeterminate nonfatty 3.4 x 2.4 cm left adrenal mass. Ill-defined mass in the body of the pancreas measuring 5.5 x 3.4 cm on image 139 of series 1002. The diagnosis of exclusion is pancreatic malignancy. Multiple shotty peripancreatic and periportal lymph nodes are present. CT/Chest WITH Contrast IMPRESSION: Dense right lower lobe pneumonia. Milder focal pneumonia is present in the other pulmonary lobes. However, several of these focal areas of alveolar disease contain cavitation. Differential includes multiple areas of cavitary infection, inflammation, and neoplasm. Mass in the body of the pancreas. The diagnosis of exclusion is pancreatic malignancy. Indeterminate mass in the left adrenal gland. Metastatic disease is not excluded. Metastatic disease cannot be excluded involving the liver and spleen as described. Multiple gallstones. Electronically Signed: Wood Hamlin MD at 0:18 EST Tel , Service support , CC: Jenny Delvalle MD Import/Export Freight Forwarder: Signed CT-CHEST WITH Observed: 08/28/2018 Status: F Source: [place] CONTRAST IMPORT 12:00 AM [facility] REPOSITORY Images were obtained outside of [facility] [id number] ACUTE ABDOMEN INC Observed: 08/22/2018 Status: F Source: [place] CHEST 11:21 AM [facility] REPOSITORY [facility] Imaging Services [place] [address] Acute Abdomen Inc Chest MR#: [id number] Acct: [id number] Name: JENNY NOBLES Rep #: [id number] : 1940 M 77 From: Gianluca Dotson MD PCP: Jenny Delvalle MD Status: REG CLI Study: Acute Abdomen Inc Chest Date of Exam: 08/22/18 Exam# [id number] Ordering Dr: Jenny Delvalle MD STUDY: X-RAY - ACUTE ABDOMINAL SERIES REASON FOR EXAM: Male, 77 years old. Constipation with pain across the lower belly and back for one month TECHNIQUE: Single view of the chest. Supine, and erect view(s) of the abdomen were obtained. COMPARISON: None. FINDINGS: Rounded consolidation adjacent to the right hilum measures approximately 6.1 cm. Normal size heart. Normal mediastinum and aditi. Normal visualized pulmonary arteries. Normal visualized aortic arch and descending thoracic aorta. There is a non-specific bowel gas pattern. There are multiple rounded calcifications of the right upper abdomen, likely gallstones. Mild fecal residue of the right colon. There are diffuse degenerative changes of the visualized lumbar spine with mild levoscoliosis. There are vascular phleboliths of the pelvis. RAD/Acute Abdomen Inc Chest IMPRESSION: 1. Rounded right perihilar consolidation may represent localized pneumonia, however, follow-up is recommended as neoplasm is also in the differential diagnosis. 2. Probable gallstones. 3. Degenerative changes of the lumbar spine. Electronically Signed: Gianluca Dotson MD at 19:17 EST , Service support , CC: Jenny Delvalle MD Import/Export Freight Forwarder: Signed VITAMIN B12 Collected: 08/08/2018 Status: F Source: [place] 10:23 AM [facility] REPOSITORY TYPE CODE TESTS RESULT OUT OF RANGE REFERENCE UNITS LAB L503.0105 211-911 pg/mL Normal Vitamin B12 842 Performed By: #### L503.0105, L503.6075, L503.6150, L503.6550, L506.0250 #### [facility] [address] [place], [address] IRON BINDING Collected: 08/08/2018 Status: F Source: [place] [facility],TOTAL 10:23 AM [facility] REPOSITORY Order Comment: Is Patient Taking Vitamins or Folic Acid Supplements? N TYPE CODE TESTS RESULT OUT OF RANGE REFERENCE UNITS LAB L503.6075 250-450 ug/dL Normal TIBC 269 Performed By: #### L503.0105, L503.6075, L503.6150, L503.6550, L506.0250 #### [facility] [address] [place], [address] IRON Collected: 08/08/2018 Status: F Source: [place] 10:23 AM [facility] REPOSITORY Order Comment: Is Patient Taking Vitamins or Folic Acid Supplements? N TYPE CODE TESTS RESULT OUT OF RANGE REFERENCE UNITS LAB L503.6150 65-175 ug/dL Low IRON 63 Performed By: #### L503.0105, L503.6075, L503.6150, L503.6550, L506.0250 #### [facility] [address] [place], [address] FERRITIN Collected: 08/08/2018 Status: F Source: [place] 10:23 AM [facility] REPOSITORY Order Comment: Is Patient Taking Vitamins or Folic Acid Supplements? N TYPE CODE TESTS RESULT OUT OF RANGE REFERENCE UNITS LAB L503.6550 26-388 ng/mL Normal FERRITIN 269 Performed By: #### L503.0105, L503.6075, L503.6150, L503.6550, L506.0250 #### [facility] [address] [place], [address] FOLATES, (FOLIC ACID) Collected: 08/08/2018 Status: F Source: [place] 10:23 AM [facility] REPOSITORY Order Comment: Is Patient Taking Vitamins or Folic Acid Supplements? N TYPE CODE TESTS RESULT OUT OF REFERENCE UNITS RANGE LAB L506.0250 3.1-55.4 ng/mL High FOLATES 59.60 Performed By: #### L503.0105, L503.6075, L503.6150, L503.6550, L506.0250 #### [facility] [address] [place], [place], [address] CBC W/DIFF, AUTOMATED Collected: 08/07/2018 Status: F Source: [place] 10:05 [facility] REPOSITORY TYPE CODE TESTS RESULT OUT OF RANGE REFERENCE UNITS LAB L100.1000 4.4-11.0 K/mm3 Normal WBC 7.7 LAB L100.1200 4.6-6.2 M/mm3 Low RBC 4.12 LAB L100.1300 13.0-16.5 g/dl Low HGB 12.8 LAB L100.1400 40-54 % Low HCT 39.1 LAB L100.1500 80-94 fL High MCV 94.9 LAB L100.1600 27.0-32.0 pg Normal MCH 31.1 LAB L100.1700 32-36 g/gl Normal MCHC 32.7 LAB L100.1810 11.6-14.6 % Normal RDW CV 13.7 LAB L100.1820 35.1-43.9 fl High RDW SD 45.4 LAB L100.1900 150-450 K/mm3 Normal PLT 271 LAB L100.2000 6.2-12.0 fl Normal MPV 10.7 LAB L100.2100 47-70 % Normal NEUT% 66.2 LAB L100.2200 19-41 % Low LY% 16.3 LAB L100.2300 0-10 % Normal MONO% 9.5 LAB L100.2400 0-5 % High EO% 7.5 LAB L100.2500 0-1 % Normal BASO% 0.4 LAB L100.2550 0.0-0.9 % Normal IM GRAN % 0.100 Result Comment: IG% - Immature Granulocytes (promyelocytes, myelocytes and metamyelocytes) > 1% indicates that a LEFT SHIFT is Present. LAB L100.2620 2.0-7.7 X10 3/uL Normal Absolute Neut 5.1 LAB L100.2720 0.83-4.51 X10 3/ul Normal Absolute Lymph 1.26 Performed By: #### L100.0100 #### [facility] [place], [address] COMPREHENSIVE METABOLIC Collected: 08/07/2018 Status: F Source: [place] [facility] 10:05 AM [facility] REPOSITORY TYPE CODE TESTS RESULT OUT OF RANGE REFERENCE UNITS LAB L501.0100 74-106 mg/dL High GLU 142 Result Comment: Fasting Glucose result greater than or equal to 126 mg/dL suggests DIABETES MELLITUS per A.D.A. criteria. Please note revised GLUCOSE reference range effective 2017. LAB L501.1000 7-18 mg/dL High BUN 21 LAB L501.1100 0.70-1.30 mg/dL Normal CREAT,SERUM 1.12 Result Comment: The validity of the calculated GFR AND GFRAA in patients over 70 years has not been determined. Clinical correlation is essential. LAB L501.1110 >60 mL/min Normal EST GFR 67 Result Comment: Non- GFR Calc LAB L501.1115 >60 mL/min Normal EST GFR - AA 81 Result Comment: GFR Calc LAB L501.1300 10-20 RATIO Normal BUN/CRE 18.8 LAB L501.1500 6.4-8.2 g/dL T Normal PROT 7.5 LAB L501.1800 3.2-5.0 g/dL Normal ALB 3.7 LAB L501.1950 2.2-4.2 g/dL Normal GLOB 3.8 LAB L501.2000 0.9-2.4 RATIO Normal A/G 1.0 LAB L501.2200 8.5-10.1 mg/dL CA Normal 9.0 LAB L501.4100 15-37 U/L Normal AST 18 LAB L501.4305 45-117 U/L Normal ALK P 69 LAB L501.4405 16-61 U/L Normal ALT 22 LAB L501.4600 0.20-1.00 mg/dL T Normal BILI 0.60 LAB L501.5300 136-145 mmol/L NA Normal 141 LAB L501.5600 3.5-5.1 mmol/L K Normal 4.3 LAB L501.5900 98-107 mmol/L CL Normal 107 LAB L501.6100 21.0-32.0 mmol/L Normal CO2 25.0 LAB L501.6200 5-15 Normal GAP 9 Performed By: #### L500.4050, L500.4100 #### [facility] [address] [facility] [place], [place], [id number] LIPID PROFILE Collected: 08/07/2018 Status: F Source: [place] 10:05 AM [facility] REPOSITORY TYPE CODE TESTS RESULT OUT OF RANGE REFERENCE UNITS LAB L501.4900 200 mg/dL Normal CHOL 159 Result Comment: <200 mg/dL Desirable 200-240 mg/dL Borderline >240 mg/dL High Risk LAB L501.5000 mg/dL Normal TRIG 84 Result Comment: The drugs N-Acetylcysteine and Metamizole may falsely depress this assay. Serum Triglycerides Reference Interval Normal <150 mg/dL Borderline high 150 - 199 mg/dL High 200 - 499 mg/dL Very High > or = 500 mg/dL LAB L501.6400 mg/dL Normal HDL 48 Result Comment: The drugs N-Acetylcysteine and Metamizole may falsely depress this assay. Reference Range HDL <40 mg/dL Low HDL Cholesterol HDL >or= 60 mg/dL High HDL Cholesterol LAB L501.6500 0-130 mg/dL Normal LDL 94 LAB L501.6600 5-40 mg/dL Normal VLDL 17 Performed By: #### L500.4050, L500.4100 #### [facility] [address] [facility] [place], [place], [address] HEMOGLOBIN A1C Collected: 08/07/2018 Status: F Source: [place] 10:05 [facility] REPOSITORY TYPE CODE TESTS RESULT OUT OF RANGE REFERENCE UNITS LAB L501.9985 4.2-6.3 % High HGB A1C 6.9 Performed By: #### L501.9985 #### [facility] [address] [place], [place], [id number] URINALYSIS, COMPLETE Collected: 08/07/2018 Status: F Source: [place] 10:05 AM [facility] REPOSITORY Order Comment: How was Urine Obtained? CLEAN CATCH TYPE CODE TESTS RESULT OUT OF RANGE REFERENCE UNITS LAB L400.3000 Yellow COLOR Normal Yellow LAB L400.3050 Clear Normal CLARITY Sl. Cloudy LAB L400.3200 Normal mg/dl Normal GLUCOSE, UR Normal LAB L400.3300 Negative mg/dL High BILIRUBIN URINE 1 Result Comment: COLOR OF URINE MAY AFFECT DIPSTICK RESULTS. LAB L400.3400 Negative mg/dl High KETONE UR 5 LAB L400.3465 1.002-1.030 Normal SP.GR. DIPSTX 1.020 LAB L400.3550 5.0 - 8.0 pH Normal UR 5.0 LAB L400.3600 Negative mg/dl High PROT DIPSTX 15 LAB L400.3700 Normal mg/dl High UROBILI 1 LAB L400.3750 Negative Normal NITRITE UR Negative LAB L400.3780 Negative /ul High OCCULT 25 BLOOD-UR LAB L400.3800 Negative /ul High LEUK ESTERASE 25 LAB L400.4050 0-5 /hpf Normal WBC 0 SEEN LAB L400.4100 0-5 /hpf Normal RBC-UA 0-5 SEEN LAB L400.4150 0-5 /hpf Normal SQUAM EPI 0-5 SEEN LAB L400.4300 None Seen /hpf Normal BACTERIA RARE LAB L400.4350 <or=2+ /hpf Normal MUCUS, URINE 0 SEEN LAB L400.4400 0-5 /lpf Normal HYALINE CAST 0-5 SEEN Performed By: #### L400.0001 #### [facility] [address] [facility]. [place], [place], [address] MICROALB:CREAT Collected: 08/07/2018 Status: F Source: KENNEDI RATIO,RANDOM UR 10:05 AM [facility] REPOSITORY TYPE CODE TESTS RESULT OUT OF RANGE REFERENCE UNITS LAB L501.1200 NO RANGE EST. mg/dL Normal UR CREAT 299.00 LAB L502.0500 NO RANGE EST. mg/L Normal 46.4 MICROALBUMIN ,UR LAB L502.0600 <30 mg/g CRE mg/g CRE Normal 15.5 MALB:CREAT Performed By: #### L502.0250 #### [facility] [address] [facility] [place], [address] URINALYSIS, COMPLETE Collected: 06/26/2018 Status: F Source: KENNEDI 8:30 AM [facility] REPOSITORY Order Comment: How was Urine Obtained? CLEAN CATCH TYPE CODE TESTS RESULT OUT OF RANGE REFERENCE UNITS LAB L400.3000 Yellow COLOR Normal Yellow LAB L400.3050 Clear Normal CLARITY Clear LAB L400.3200 Normal mg/dl Normal GLUCOSE, UR Normal LAB L400.3300 Negative mg/dL Normal BILIRUBIN URINE Negative LAB L400.3400 Negative mg/dl Normal KETONE UR Negative LAB L400.3465 1.002-1.030 Normal SP.GR. DIPSTX 1.010 LAB L400.3550 5.0 - 8.0 pH UR Normal 6.0 LAB L400.3600 Negative mg/dl PROT Normal DIPSTX Negative LAB L400.3700 Normal mg/dl Normal UROBILI Normal LAB L400.3750 Negative Normal NITRITE UR Negative LAB L400.3780 Negative /ul High 25 OCCULT BLOOD-UR LAB L400.3800 Negative /ul High LEUK 25 ESTERASE LAB L400.4050 0-5 /hpf WBC Normal 0-5 SEEN LAB L400.4100 0-5 /hpf Normal RBC-UA 0-5 SEEN LAB L400.4150 0-5 /hpf SQUAM 0 Normal EPI SEEN LAB L400.4300 None Seen /hpf 0 Normal BACTERIA SEEN LAB L400.4350 <or=2+ /hpf 0 Normal MUCUS, URINE SEEN Performed By: #### L400.0001 #### [facility] [place], [address] Observed: 06/26/2018 Status: F Source: KENNEDI CULTURE, URINE 8:30 AM [facility] REPOSITORY Urine Culture Below infection level. ORGANISM 1: Mixed Gram Positive Organisms [place] Count <1000 Performed By: #### M100.0650 #### [facility] [place], [place], [address] POST VOID RESIDUAL Observed: 06/13/2018 Status: F Source: KENNEDI BLADDER 8:45 AM [facility] REPOSITORY [facility] Imaging Services [facility] [place] [address] Post Void Residual Bladder MR#: [id number] Acct: [id number] Name: JENNY NOBLES Rep #: [id number] : [id number] M [id number] From: Cooper Rodriguez MD PCP: Jenny Delvalle MD Status: REG CLI Study: Post Void Residual Bladder Date of Exam: 06/13/18 Exam# [id number] Ordering Dr: Jenny Delvalle MD STUDY: ULTRASOUND - URINARY BLADDER REASON FOR EXAM: Male, 77 years old. Urinary retention. TECHNIQUE: Ultrasound evaluation of the urinary bladder was performed with real-time and static hernandez-scale imaging. COMPARISON: 09/13/17. FINDINGS: There is no right UVJ calculus. There is a visualized right ureteral jet. There is no left UVJ calculus. There is a visualized left ureteral jet. The distended volume of the urinary bladder is 411 ml. The empty volume of the urinary bladder is 184 ml. The bladder wall is within normal limits. The bladder wall measures 3. There is no demonstrated bladder wall mass lesion. Probable debris seen along the posterior wall. There are no demonstrated bladder calculi. There is marked enlargement of the prostate gland measuring 6.0 x 5.4 x 3.6 cm US/Post Void Residual Bladder IMPRESSION: Moderate urinary retention. Marked prostate enlargement. Electronically Signed: Cooper Rodriguez MD at 18:03 EDT , Service support , CC: Jenny Delvalle MD Import/Export Freight Forwarder: Signed URINALYSIS, COMPLETE Collected: 05/01/2018 Status: F Source: KENNEDI 11:43 AM [facility] REPOSITORY Order Comment: Order Date: 05/01/18 Order Info: [id number] - UAC How was Urine Obtained? BUDDHIST MONK TO SPECIFY TYPE CODE TESTS RESULT OUT OF RANGE REFERENCE UNITS LAB L400.3000 Yellow COLOR Normal Yellow LAB L400.3050 Clear Normal CLARITY Clear LAB L400.3200 Normal mg/dl Normal GLUCOSE, UR Normal LAB L400.3300 Negative mg/dL Normal BILIRUBIN URINE Negative LAB L400.3400 Negative mg/dl Normal KETONE UR Negative LAB L400.3465 1.002-1.030 Normal SP.GR. DIPSTX 1.010 LAB L400.3550 5.0 - 8.0 pH UR Normal 6.0 LAB L400.3600 Negative mg/dl PROT Normal DIPSTX Negative LAB L400.3700 Normal mg/dl Normal UROBILI Normal LAB L400.3750 Negative Normal NITRITE UR Negative LAB L400.3780 Negative /ul High 10 OCCULT BLOOD-UR LAB L400.3800 Negative /ul LEUK Normal ESTERASE Negative LAB L400.4050 0-5 /hpf WBC 0 Normal SEEN LAB L400.4100 0-5 /hpf Normal RBC-UA 0-5 SEEN LAB L400.4150 0-5 /hpf SQUAM 0 Normal EPI SEEN LAB L400.4300 None Seen /hpf 0 Normal BACTERIA SEEN LAB L400.4350 <or=2+ /hpf 0 Normal MUCUS, URINE SEEN Performed By: #### L400.0001, L100.0500, L500.4050, L501.9985 #### [facility] [address] [place], [place], [address] CBC-COMPLETE BLOOD CNT Collected: 05/01/2018 Status: F Source: [place] NO DIFF 11:43 AM [facility] REPOSITORY Order Comment: Order Date: 05/01/18 Order Info: [id number] - CBC TYPE CODE TESTS RESULT OUT OF RANGE REFERENCE UNITS LAB L100.1000 4.4-11.0 K/mm3 Normal WBC 7.8 LAB L100.1200 4.6-6.2 M/mm3 Low RBC 4.30 LAB L100.1300 13.0-16.5 g/dl Normal HGB 13.3 LAB L100.1400 40-54 % Normal HCT 40.4 LAB L100.1500 80-94 fL Normal MCV 94.0 LAB L100.1600 27.0-32.0 pg Normal MCH 30.9 LAB L100.1700 32-36 g/gl Normal MCHC 32.9 LAB L100.1810 11.6-14.6 % Normal RDW CV 14.0 LAB L100.1820 35.1-43.9 fl High RDW SD 46.2 LAB L100.1900 150-450 K/mm3 Normal PLT 295 LAB L100.2000 6.2-12.0 fl Normal MPV 11.0 Performed By: #### L400.0001, L100.0500, L500.4050, L501.9985 #### [facility] [place], [address] COMPREHENSIVE METABOLIC Collected: 05/01/2018 Status: F Source: KENNEDI [facility] 11:43 AM [facility] REPOSITORY Order Comment: Order Date: 05/01/18 Order Info: [id number] - CMP TYPE CODE TESTS RESULT OUT OF RANGE REFERENCE UNITS LAB L501.0100 74-106 mg/dL High GLU 127 Result Comment: Fasting Glucose result greater than or equal to 126 mg/dL suggests DIABETES MELLITUS per A.D.A. criteria. Please note revised GLUCOSE reference range effective 2017. LAB L501.1000 7-18 mg/dL Normal BUN 17 LAB L501.1100 0.70-1.30 mg/dL Normal CREAT,SERUM 1.18 Result Comment: The validity of the calculated GFR AND GFRAA in patients over 70 years has not been determined. Clinical correlation is essential. LAB L501.1110 >60 mL/min Normal EST GFR 63 Result Comment: Non- GFR Calc LAB L501.1115 >60 mL/min Normal EST GFR - AA 77 Result Comment: GFR Calc LAB L501.1300 10-20 RATIO Normal BUN/CRE 14.4 LAB L501.1500 6.4-8.2 g/dL T Normal PROT 7.7 LAB L501.1800 3.2-5.0 g/dL Normal ALB 3.8 LAB L501.1950 2.2-4.2 g/dL Normal GLOB 3.9 LAB L501.2000 0.9-2.4 RATIO Normal A/G 1.0 LAB L501.2200 8.5-10.1 mg/dL CA Normal 9.5 LAB L501.4100 15-37 U/L Normal AST 18 LAB L501.4305 45-117 U/L Normal ALK P 68 LAB L501.4405 16-61 U/L Normal ALT 23 LAB L501.4600 0.20-1.00 mg/dL T Normal BILI 0.40 LAB L501.5300 136-145 mmol/L NA Normal 140 LAB L501.5600 3.5-5.1 mmol/L K Normal 4.4 LAB L501.5900 98-107 mmol/L CL Normal 107 LAB L501.6100 21.0-32.0 mmol/L Normal CO2 28.0 LAB L501.6200 5-15 Normal GAP 5 Performed By: #### L400.0001, L100.0500, L500.4050, L501.9985 #### [facility] [address] [place], [place], [address] HEMOGLOBIN A1C Collected: 05/01/2018 Status: F Source: KENNEDI 11:43 AM [facility] REPOSITORY Order Comment: Order Date: 05/01/18 Order Info: [id number] - A1C TYPE CODE TESTS RESULT OUT OF RANGE REFERENCE UNITS LAB L501.9985 4.2-6.3 % High HGB A1C 7.1 Performed By: #### L400.0001, L100.0500, L500.4050, L501.9985 #### [facility] [address] [place], [place], [address] COMPREHENSIVE METABOLIC Collected: 01/05/2018 Status: F Source: KENNEDI [facility] 10:45 AM [facility] REPOSITORY TYPE CODE TESTS RESULT OUT OF RANGE REFERENCE UNITS LAB L501.0100 74-106 mg/dL High GLU 139 Result Comment: Fasting Glucose result greater than or equal to 126 mg/dL suggests DIABETES MELLITUS per A.D.A. criteria. Please note revised GLUCOSE reference range effective 2017. LAB L501.1000 7-18 mg/dL Normal BUN 17 LAB L501.1100 0.70-1.30 mg/dL Normal CREAT,SERUM 1.16 Result Comment: The validity of the calculated GFR AND GFRAA in patients over 70 years has not been determined. Clinical correlation is essential. LAB L501.1110 >60 mL/min Normal EST GFR 65 Result Comment: Non- GFR Calc LAB L501.1115 >60 mL/min Normal EST GFR - AA 78 Result Comment: GFR Calc LAB L501.1300 10-20 RATIO Normal BUN/CRE 14.7 LAB L501.1500 6.4-8.2 g/dL T Normal PROT 7.6 LAB L501.1800 3.2-5.0 g/dL Normal ALB 3.5 LAB L501.1950 2.2-4.2 g/dL Normal GLOB 4.1 LAB L501.2000 0.9-2.4 RATIO Normal A/G 0.9 LAB L501.2200 8.5-10.1 mg/dL CA Normal 9.1 LAB L501.4100 15-37 U/L Low AST 13 LAB L501.4305 45-117 U/L Normal ALK P 71 LAB L501.4405 16-61 U/L Normal ALT 19 Result Comment: Please note revised ALT reference range effective 2017. LAB L501.4600 0.20-1.00 mg/dL Normal T BILI 0.40 LAB L501.5300 136-145 mmol/L Normal NA 139 LAB L501.5600 3.5-5.1 mmol/L Normal K 4.4 LAB L501.5900 98-107 mmol/L Normal CL 105 LAB L501.6100 21.0-32.0 mmol/L Normal CO2 27.0 LAB L501.6200 5-15 Normal GAP 7 Performed By: #### L500.4050 #### [facility] [address] [place], [address] CBC W/DIFF, AUTOMATED Collected: 01/05/2018 Status: F Source: [place] 10:45 AM [facility] REPOSITORY TYPE CODE TESTS RESULT OUT OF RANGE REFERENCE UNITS LAB L100.1000 4.4-11.0 K/mm3 Normal WBC 8.2 LAB L100.1200 4.6-6.2 M/mm3 Low RBC 4.21 LAB L100.1300 13.0-16.5 g/dl Normal HGB 13.0 LAB L100.1400 40-54 % Low HCT 39.8 LAB L100.1500 80-94 fL High MCV 94.5 LAB L100.1600 27.0-32.0 pg Normal MCH 30.9 LAB L100.1700 32-36 g/gl Normal MCHC 32.7 LAB L100.1810 11.6-14.6 % Normal RDW CV 14.5 LAB L100.1820 35.1-43.9 fl High RDW SD 49.2 LAB L100.1900 150-450 K/mm3 Normal PLT 357 LAB L100.2000 6.2-12.0 fl Normal MPV 10.2 LAB L100.2100 47-70 % Normal NEUT% 67.2 LAB L100.2200 19-41 % Low LY% 16.8 LAB L100.2300 0-10 % Normal MONO% 8.1 LAB L100.2400 0-5 % High EO% 7.3 LAB L100.2500 0-1 % Normal BASO% 0.4 LAB L100.2550 0.0-0.9 % Normal IM GRAN % 0.200 Result Comment: IG% - Immature Granulocytes (promyelocytes, myelocytes and metamyelocytes) > 1% indicates that a LEFT SHIFT is Present. LAB L100.2620 2.0-7.7 X10 3/uL Normal Absolute Neut 5.5 LAB L100.2720 0.83-4.51 X10 3/ul Normal Absolute Lymph 1.38 Performed By: #### L100.0100 #### [facility] [address] [place] [address]. [place], [place], [address] ALLERGIES ALLERGIES DATE TYPE / CODE NAME / CODE REACTION SEVERITY SOURCE 08/16/2017 Drug No Known Unknown [place] Allergy/236468202(S Allergies/F Community NOMED CT) [id number]( Hospital XNORM) Repository 03/09/2010 Miscellaneous OTHER [facility] Allergy/546465876(S Other [place] NOMED CT) Repository NG/[id number](SNOMED OTHER [facility]) Health System Repository ENCOUNTERS ENCOUNTERS ADMIT/DISCHARGE ACCOUNT NUMBER ADMITTING ENCOUNTER LOCATION SOURCE CLASS 09/18/2018/09/18/20 [id number] Ambulatory [address] Repository 09/18/2018/09/18/20 [id number] Ambulatory [address] Repository 09/13/2018/09/13/[id number] Other [place] Repository 09/13/2018/09/13/20 [id number] AWENDER, H S Inpatient [address] MEDICAL Repository CENTERBuildi ng:ENDORoom: POOLBed: 04 09/08/2018/09/08/20 [id number] Ambulatory [address] Repository 09/08/2018 [id number] Ambulatory [facility] Repository 09/08/2018/09/08/20 [id number] Ambulatory [address] MEDICAL Repository CENTERBuildi ng:AKLB 09/08/2018/09/08/20 [id number] Ambulatory [address] Other [place] Repository 09/08/2018/09/08/20 [id number] Ambulatory [address] MEDICAL Repository CENTERBuildi ng:AGGENS1 09/06/2018/09/08/20 [id number] Ambulatory [address] Repository 08/30/2018 [id number] Ambulatory [facility] ding:CT Repository 08/28/2018 [id number] Ambulatory [facility] ding:CT Repository 08/22/2018 [id number] Ambulatory [facility] ding:MTRAD Repository 08/08/2018 [id number] Ambulatory [facility] ding:MFPLAB Repository 08/07/2018 [id number] Ambulatory [facility] ding:MFPLAB Repository 06/26/2018 [id number] Ambulatory [facility] ding:LABSPEC Repository 06/13/2018 [id number] Ambulatory [facility] ding:US Repository 05/01/2018 [id number] Ambulatory [facility] ding:MFPLAB Repository 01/05/2018 [id number] Ambulatory [facility] ding:MFPLAB Repository PAYERS PAYERS ENCOUNTER GUARANTOR PAYER SUBSCRIBER SOURCE 09/13/2018 JENNY BURCH: Primary JENNY BURCH: [facility] [id number] Insurance:[facility] [id number] Repository [place] [address]Qck: (330) Number: [phone] () [id number] Date: 09/08/2018 JENNY MATTHEWIRMAB: Primary JENNY JIMB: [facility] Insurance:[facility] [id number] Health Administration Repository [place], [place] [facility] [address]Ink: (330) Number: [phone] () [id number] Date: 09/08/2018 JENNY MATTHEWIRMAB: Primary JENNY NOBLESDOB: [facility] Insurance:[facility] [id number] [address]Lmb: (330) Number: [phone] () [id number] Date: 08/30/2018 JENNY RUBIN6 Primary JENNY JIMB: [place] Insurance:[facility] [id number] [place] [facility] [address]Ows: (330) Number: Repository [phone] () [id number] Date:[id number] [address] [place] [address] 92120OB: 08/30/2018 Secondary NOT GIVENUNK [place] Insurance:SELF PAY [facility] Number: Effective Repository Date:2018-08-30 08/28/2018 JENNY RUBIN6 Primary JENNY JIMB: [place] Insurance:[facility] [id number] [place] [facility] [address]Rya: (330) Number: Repository [phone] () [id number] Date:[id number] [address] [place] [address] 46370PE: 08/28/2018 Secondary NOT GIVENUNK [place] Insurance:SELF PAY [facility] Number: Effective Repository Date:2018-08-25 08/22/2018 Jenny Rubin6 Primary Jenny NoblesDOB: [place] Vaughn Insurance:[employer] [id number] [place] [facility] [address]Tel: (330) Number: Repository [phone] () [id number] Date:[id number] [address] [place] [address] 732[address]HV: 08/22/2018 Secondary NOT GIVENUNK [place] Insurance:SELF PAY [facility] Number: Effective Repository Date:2018-08-22 08/08/2018 Jenny Nobles1436 Primary Jenny NoblesDOB: [place] Insurance:[employer] [id number] [place] [facility] [address]Tel: (330) Number: Repository [phone] () [id number] Date:[id number] [address] [place] [address] 36786CF: 08/08/2018 Secondary NOT GIVENUNK [place] Insurance:SELF PAY [facility] Number: Effective Repository Date:2018-08-08 08/07/2018 Jenny Nobles1436 Primary Jenny NoblesDOB: [place] Insurance:[employer] [id number] [place] [facility] [address]Tel: (330) Number: Repository [phone] () [id number] Date:[id number] [address] [place] [address] 71788IR: 08/07/2018 Secondary NOT GIVENUNK [place] Insurance:SELF PAY [facility] Number: Effective Repository Date:2018-08-07 06/26/2018 Jenny R [id number] Primary Jenny JimB: [place] Insurance:[employer] [id number] [place] [facility] [address]Tel: (330) Number: Repository [phone] () [id number] Date:8159-14-69NS [address] [place] [address] 65824ON: 06/26/2018 Secondary NOT GIVENUNK [place] Insurance:SELF PAY [facility] Number: Effective Repository Date:2018-06-26 06/13/2018 Jenny Sukumar [id number] Primary Jenny NoblesDOB: [place]n Insurance:[employer] [id number] [place] [facility] [address]Tel: (330) Number: Repository [phone] () [id number] Date:[id number] [place] [address] 49951WK: 06/13/2018 Secondary NOT GIVENUNK [place] Insurance:SELF PAY [facility] Number: Effective Repository Date:2018-05-02 05/01/2018 Jenny Sukumar [id number] Primary Jenny NoblesDOB: [place] Insurance:[employer] [id number] [place] [facility] [address]Tel: (330) Number: Repository [phone] () [id number] Date:1388-98-60AK [address] [place] [address] 63672LD: 05/01/2018 Secondary NOT GIVENUNK [place] Insurance:SELF PAY [facility] Number: Effective Repository Date:2018-05-01 01/05/2018 Jenny Sukumar [id number] Primary Jenny NoblesDOB: [place]n Insurance:[employer] [id number] [place] [facility] [address]Tel: (044) Number: Repository [phone] () [id number] Date:[id number] [address] [place] [address] 12166GU: 01/05/2018 Secondary NOT GIVENUNK [place] Insurance:SELF PAY [facility] Number: Effective Repository Date:2018-01-05
== END ==
PROVIDERS: Family Provider Family Medicine; PCP Family Medicine; Referring Provider Family Medicine; Visit Provider Family Medicine
DX: R91.8 Other nonspecific abnormal finding of lung field (principal)
CPT/HCPCS: 71260; Q9967

== ENCOUNTER → 2018-08-30 12:28 | Outpatient (CLI) | payer MEDICARE, SELFPAY ==
--- NOTE | 2018-08-30 14:00 | CT_ITS ---
STUDY: CT ABDOMEN AND PELVIS WITH CONTRAST REASON FOR EXAM: Male, 77 years old. Pancreatic mass RADIATION DOSAGE (If Supplied By Facility): CTDIvol = ( 20.89 ) mGy, DLP = ( 819.42 ) mGycm TECHNIQUE: Transaxial images were obtained from the dome of the diaphragm to the symphysis pubis without oral contrast. 100ML ml of Isovue 300 contrast was administered. Sagittal and coronal images were reconstructed. Individualized dose optimization techniques were used for this CT. COMPARISON: None. FINDINGS: There is minor interstitial thickening at both lung bases. There is focal peripheral consolidation in both lower lobes greater on the right. The visualized portions of the heart are within normal limits. Small hiatal hernia is present Liver is fatty infiltrated without mass or bile duct dilatation.. Multiple calcified stones in the gallbladder without evidence for acute cholecystitis. Normal spleen. There is a large heterogeneous solid mass measuring approximately 5.6 x 2.75 cm involving much of the body and tail of the pancreas. There is encasement and occlusion of the splenic vein with associated perigastric venous collaterals. Right adrenal is normal. There is a solid adrenal mass on the left measuring 2.8 x 2.6 cm suspicious for metastatic disease Normal right kidney. Normal left kidney. Normal visualized stomach. Normal small intestine. Prominent diverticular changes within the descending and sigmoid colon without evidence for acute diverticulitis. The appendix is visualized and appears normal. 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 No evidence for periaortic leak or dissection.. Normal inferior vena cava. Normal retroperitoneum. Normal urinary bladder. Nonspecific enlargement of the prostate. There is a small amount of ascites in the pelvis. Small right inguinal hernia containing loop of bowel without evidence for proximal obstruction or incarceration.. Lumbar spine demonstrates moderate spondylosis.. 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 Solid mass in left adrenal suspicious for metastasis which may be further assessed with MRI. Mild ascites Cholelithiasis without evidence for acute cholecystitis.. Electronically Signed: Stuart Thomas MD at 17:00 EST , Service support ,
--- OUTSIDE RECORDS SUMMARY | 2018-10-25 21:34 | XMS RPT_ITS ---
:1940 Author Organization OHIP Care Team Providers Name Role Phone Jenny eDlvalle Attending Unavailable Jenny Delvalle Primary Care Unavailable [...] Unavailable MASCI, CIARAN A Attending Unavailable MASCI, CIARAN A Referring Unavailable MASCI, CIARAN A Referring Unavailable ALI, NOAMAN S Attending Unavailable MASCI, CIARAN A Referring Unavailable [facility] Primary Care Unavailable ALI, NOAMAN S Referring Unavailable [facility] Primary Care Unavailable AWENDER, H S Admitting Unavailable AWENDER, H S Attending Unavailable [facility] Primary Care Unavailable PROBLEMS PROBLEMS DATE TYPE CONDITION / CODE ATTENDING STATUS SOURCE 09/13/2018 Active Disease of AWENDER, Active [place] pancreas, LAKISHA S Clinic Other unspecified / [place] K86.9(ICD-10) Repository 09/08/2018 Active Coagulation defect, NA Active [facility] unspecified / [facility] Main D68.9(ICD-10) [place] Repository 09/08/2018 Active Malignant neoplasm ALI, NOAMAN Active [facility] of body of pancreas Clinic Other / C25.1(ICD-10) [place] Repository 09/08/2018 Admitting Unknown / SHILA STANTON S Active [facility] diagnosis UNK(Unknown) Health System Repository 08/28/2018 Unknown R91.8 - Other Jenny Delvalle Active [place] nonspecific [facility] abnormal finding of Hospital lung field / Repository R91.8(ICD-10) 08/22/2018 Unknown R10.9 - Unspecified Jenny Delvalle Active [place] abdominal pain / [facility] R10.9(ICD-10) Hospital Repository 01/27/2018 Unknown E11.9 - Type 2 Jenny Delvalle Active [place] diabetes mellitus [facility] without Hospital complications / Repository E11.9(ICD-10) PROCEDURES PROCEDURES No Procedure Records FoundRESULTS RESULTS PROGRESS Observed: 09/19/2018 Status: COMPLETED Source: [place] 10:32 AM CLINIC MAIN CAMPUS REPOSITORY HNO ID: [id number] Author: Isabella Chapin (Sw) Service: (none) Author Type: Pocket And Pulley Machine Operator Type: Progress Notes Filed: 09/19/2018 10:45 AM [...] Yes. How many? 1 son health care liaison arrangements needed: No Siblings: 1 sister(s) Grandchild(ryan): none Home Health Provider: No Community Services: No Krysten Identified: Yes Taoism/Spirituality: Anabaptism Are these practices or beliefs that may affect or influence treatment? No *EMPLOYMENT/FINANCIAL/HEALTH INSURANCE: Employment: Retired Income source: Social Security Insurance: Medicare HMO Prescription coverage: Yes COBRA Is the patient appropriate for referral to [facility] COBRA Assistance program? No Financial Distress: No Poth: No *LIVING ARRANGEMENTS: Type: House- independent ranch [...] Will: Yes Health Care Durable Power of Bleach Packer: Yes Scanned into EPIC: No Guardianship: NA Scanned into EPIC:NA *COPING STATUS: Coping Strengths: supportive relationships with immediate family, with friends and with christian spirituality successful managing past crises hopefulness able [...] son lives nearby and that he attends christian. Patient's spouse was on the line as [...] Ramos CNSW Observed: 09/19/2018 Status: COMPLETED Source: [place] 12:00 AM [facility] REPOSITORY Social Work (SPIKE) JENNY NOBLES ([id number]) 1940 M Date Time Provider Department 09/19/18 [...] Yes. How many? 1 son health care liaison arrangements needed: No Siblings: 1 sister(s) Grandchild(ryan): none Home Health Provider: No Community Services: No Krysten Identified: Yes Taoism/Spirituality: Anabaptism Are these practices or beliefs that may affect or influence treatment? No *EMPLOYMENT/FINANCIAL/HEALTH INSURANCE: Employment: Retired Income source: Social Security Insurance: Medicare HMO Prescription coverage: Yes COBRA Is the patient appropriate for referral to [facility] COBRA Assistance program? No Financial Distress: No Poth: No *LIVING ARRANGEMENTS: Type: House- independent ranch [...] Will: Yes Health Care Durable Power of Bleach Packer: Yes Scanned into HealthTeacher / GoNoodle: No Guardianship: NA Scanned into EPIC:NA *COPING STATUS: Coping Strengths: supportive relationships with immediate family, with friends and with christian spirituality successful managing past crises hopefulness able [...] son lives nearby and that he attends christian. Patient's spouse was on the line as [...] Fully Assessed Reason for Visit: Psychosocial Assessment [[id number]] Prescriptions as of 09/19/2018 Sig: CHOLECALCIFEROL (VITAMIN [...] 09/19/18 CNOVSP Observed: 09/18/2018 Status: COMPLETED Source: [place] 1:30 PM [facility] REPOSITORY Visit (SP) Office (SPIKE) JENNY NOBLES ([id number]) 1940 M Date Time Provider Department 09/18/18 [...] edema. SKIN: No jaundice or rash. NEUROLOGIC: relief pilot II-XII are grossly intact. No focal motor [...] biopsy of left adrenal gland mass at [facility]. -Begin chemotherapy following biopsy. -Monitor CA-19-9 each cycle. -CT scan following 2 cycles. 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 SKIN: No jaundice or rash. NEUROLOGIC: relief pilot II-XII are grossly intact. No focal motor [...] biopsy of left adrenal gland mass at [facility]. -Begin chemotherapy following biopsy. -Monitor CA-19-9 each cycle. -CT scan following 2 cycles. Ciaran Gambino DO ANES POST Observed: 09/13/2018 Status: COMPLETED Source: [place] 2:46 PM CLINIC OTHER CAMPUS REPOSITORY HNO ID: [id number] Author: Gurvinder Ramirez Service: Anesthesiology Author Type: [...] PT ED Observed: 09/13/2018 Status: COMPLETED Source: [place] 2:17 PM [facility] OTHER CAMPUS REPOSITORY HNO ID: [id number] Author: Quinn (Rn) JB Douglas Service: Gastroenterology [...] OP NOT Observed: 09/13/2018 Status: COMPLETED Source: [place] 2:17 PM [facility] REPOSITORY HNO ID: [id number] Author: Donte Tolliver Service: General Surgery Author Type: Physician Type: Brief Op Note Filed: 09/13/2018 2:24 PM Note Text: BRIEF OPERATIVE / PROCEDURE NOTE LOG ID: [id number] SURGERY/PROCEDURE DATE: 09/13/2018 INCISION/PROCEDURE START TIME: 1:15 PM INCISION CLOSE/PROCEDURE END TIME: 2:07 PM SURGEON(S)/PROCEDURALIST(S) AND REGIONAL MANAGER(S): Surgeon(s) and Role: * Donte Tolliver - [...] CYTOLOGY, MEDICAL Observed: 09/13/2018 Status: F Source: [facility] 1:30 PM HEALTH SYSTEM REPOSITORY Test performed at [address] [address] NAME: JENNY NOBLES REQUESTING: Donte TOLLIVER M.D. [...] Solorzano. Electronically Signed: 09/14/2018 Screened by: DEJAN YANEZ([facility]) Signed Out by: JOSEPHINE SOLORZANO M.D.,PATHOLOGIST Printed on: September 14, 2018 Page 1 of 1 Performed By: #### CYTOM #### [place] [address] ANES PREOP Observed: 09/13/2018 Status: COMPLETED Source: [place] 12:51 PM CLINIC OTHER CAMPUS REPOSITORY HNO ID: [id number] Author: Gurvinder Ramirez Service: Anesthesiology Author Type: [...] infusion 30 mL/hr INTRAVENOUS CONTINUOUS Modesta E (Pipe Changer) Bucur Allergies: ALLERGIES Allergen Reactions - Enviromental [...] September 13, 2018 TIME: 12:51 PM CSN: [id number] PT ED Observed: 09/13/2018 Status: COMPLETED Source: [place] 12:08 PM [facility] REPOSITORY HNO ID: [id number] Author: Kenyetta Rcio RN Service: Nursing Author Type: Registered Nurse [...] SHELTON PROGRESS Observed: 09/13/2018 Status: COMPLETED Source: [place] 11:03 AM [facility] REPOSITORY HNO ID: [id number] Author: Modesta Sharpe Service: General Surgery Author Type: Nurse Practitioner Type: Progress Notes Filed: 09/13/2018 11:47 AM Note Text: HANDP completed by Dr. Shila Stanton on 09/08/2018. Another HANDP completed by Dr. Jose D Morin on 08/21/2014. Orders for fluid and IV in EPIC. HOSP Observed: 09/13/2018 Status: COMPLETED Source: [place] 12:00 AM CLINIC OTHER CAMPUS REPOSITORY Patient:Jenny Nobles MRN: <[id number]> Height:6' 0(1.829 m) Weight:164 lb (74.39 kg) [...] infusion 30 mL/hr INTRAVENOUS CONTINUOUS Modesta E (Pipe Changer) Bucur Allergies: ALLERGIES Allergen Reactions - Enviromental [...] September 13, 2018 TIME: 12:51 PM CSN: [id number] Progress Notes (GENS AG ACC 374): Shila Stanton MD 09/08/2018 12:00 PM Signed Please let us know your decision and we will get you scheduled Shila Stanton MD 09/08/2018 12:05 PM Signed Patient referred by: Ciaran Gambino DO [address] [place] [address] HPI: This is a new patient consult [...] children: 1 Occupational History Occupation Employer Comment [employer] Social History Main Topics Smoking status: Current Some Day Smoker Packs/day: 1.00 Years: 50.00 Types: Cigars Last attempt to quit: 05/21/2014 Smokeless tobacco: Never Used Comment: Currently cigars since late Alcohol use: No Drug use: No Other Topics Concern Caffeine Concern Yes Special Diet No Exercise No Social History Narrative , 1 son Retired, 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 This shows a lesion in the [...] OPERATIVE NO Observed: 09/13/2018 Status: COMPLETED Source: [place] 12:00 AM [facility] OTHER CAMPUS REPOSITORY HNO ID: [id number] Author: Donte Tolliver Service: General Surgery Author Type: Physician Type: Operative Report Filed: 09/19/2018 9:34 AM Note Text: [facility] - Operative Report JENNY NOBLES : 1940 AGE: 77. SEX: M PATIENT TYPE: [place] [place] [facility] LOCATION: [facility] ATTENDING PHYSICIAN: Donte TOLLIVER CSN NUMBER: [id number] DATE OF SURGERY/PROCEDURE: 09/13/2018 INCISION/PROCEDURE START TIME: 1:15 PM INCISION CLOSE/PROCEDURE END TIME: 2:07 PM PREOPERATIVE DIAGNOSIS: Mass of the pancreatic body suspicious for cancer. POSTOPERATIVE DIAGNOSIS: Mass of the pancreatic body suspicious for cancer. SURGEON: Donte Tolliver MD REGIONAL MANAGER: No Additional Staff SURGERY/PROCEDURE: Esophagogastroduodenoscopy with endoscopic [...] area in good condition. Donte Tolliver MD VILLAGRAN:[id number] /[id number] CBC Collected: 09/08/2018 Status: F Source: [place] 3:25 PM [facility] REPOSITORY TYPE CODE TESTS RESULT OUT OF [...] nRBC <0.01 Performed By: #### CBC #### [facility] [address] [place], [place] [address] PROTIME Collected: 09/08/2018 Status: F Source: [place] 3:24 PM [facility] REPOSITORY TYPE CODE TESTS RESULT OUT OF RANGE REFERENCE UNITS LAB PSEC 9.7-13.0 sec PT Sec 10.9 LAB INR 0.9-1.3 PT INR 1.0 Result Comment: Vitamin K Antagonist (VKA) Therapeutic Range: INR 2 to 3 (Target INR of 2.5) Note: For patients treated with VKA drugs, such as warfarin, the [place] [employer] Physicians 2012 Guideline recommends [...] Chest 2012, 141:7S-47S Jackie RA, et al. [facility] 2017, 70: 252-289 Performed By: #### PT, PTT, CA199, CHROMA #### [facility] [employer] [address] [place], [place] [address] APTT Collected: 09/08/2018 Status: F Source: [place] 3:24 PM [facility] REPOSITORY TYPE CODE TESTS RESULT OUT OF [...] laboratory APTT reagent in use throughout the [facility]. Performed By: #### PT, PTT, CA199, CHROMA #### [facility] [employer] [address] [place], [place] [address] CA 19-9 Collected: 09/08/2018 Status: F Source: [place] 3:24 PM [facility] REPOSITORY TYPE CODE TESTS RESULT OUT OF RANGE REFERENCE UNITS LAB CA199 <36 U/mL High CA 19-9 [address] Result Comment: Test analyzed by the svh24.de DxI method. Result rechecked. Performed By: #### PT, PTT, CA199, CHROMA #### [facility] [employer] [address] [place], [place] [address] CHROMOGRANIN A Collected: 09/08/2018 Status: F Source: [place] 3:24 PM [facility] MAIN CAMPUS REPOSITORY TYPE CODE TESTS RESULT OUT OF REFERENCE UNITS RANGE LAB CHROMA <98 ng/mL Chromogranin A 91 Result Comment: This test is performed using the [employer] LSO-DQSKU-IZ kit. Results obtained with different methods or kits cannot be used interchangeably. This test was developed and its performance characteristics determined by [facility]'s [facility] Pathology and Laboratory Medicine [place] ([facility]). It has not been cleared or approved by the FDA. [facility] is regulated under CLIA as qualified to perform high-complexity testing. This test is used for clinical purposes. It should not be regarded as investigational or for research. Performed By: #### PT, PTT, CA199, CHROMA #### [facility] [address] [place], [place] [address] PROGRESS Observed: 09/08/2018 Status: COMPLETED Source: [place] 12:02 PM [facility] OTHER CAMPUS REPOSITORY HNO ID: [id number] Author: Shila Stanton Service: (none) Author Type: Physician Type: Progress Notes Filed: 09/08/2018 12:05 PM Note Text: Patient referred by: Ciaran Gambino, DO [address] [facility] [address] HPI: This is a new patient consult [...] children: 1 Occupational History Occupation Employer Comment [employer] Social History Main Topics Smoking status: Current Some Day Smoker Packs/day: 1.00 Years: 50.00 Types: Cigars Last attempt to quit: 05/21/2014 Smokeless tobacco: Never Used Comment: Currently cigars since late Alcohol use: No Drug use: No Other Topics Concern Caffeine Concern Yes Special Diet No Exercise No Social History Narrative , 1 son Retired, [employer] lives in [facility] [place] Current Outpatient Prescriptions: linagliptin (TRADJENTA) 5 mg [...] (HCC) I reviewed his CT scan from [facility]. This shows a lesion in the [...] MD CNOV Observed: 09/08/2018 Status: COMPLETED Source: [place] 11:30 AM CLINIC OTHER CAMPUS REPOSITORY Office Visit (AGGENS1) JENNY NOBLES ([id number]) 1940 M Date Time Provider Department 09/08/18 [...] Patient referred by: Ciaran Gambino DO [address] [facility] [address] HPI: This is a new patient consult [...] children: 1 Occupational History Occupation Employer Comment [employer] Social History Main Topics Smoking status: Current Some Day Smoker Packs/day: 1.00 Years: 50.00 Types: Cigars Last attempt to quit: 05/21/2014 Smokeless tobacco: Never Used Comment: Currently cigars since late Alcohol use: No Drug use: No Other Topics Concern Caffeine Concern Yes Special Diet No Exercise No Social History Narrative , 1 son Retired, [employer] lives in [facility] [place] Current Outpatient Prescriptions: linagliptin (TRADJENTA) 5 mg [...] (HCC) I reviewed his CT scan from [facility]. This shows a lesion in the [...] Shila Stanton MD Referring Provider: CIARAN GAMBINO [[id number]] Allergies As of Date: 09/08/2018 Noted Allergy Reaction enviromental [Other] 03/09/2010 Date Reviewed: 09/08/2018 Reviewed by: Shila Stanton - Fully Assessed Reason for Visit: New Patient [172] Cmt: New patient referred fo pancreatic cancer by Dr. Gambino. 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..] edema. SKIN: No jaundice or rash. NEUROLOGIC: relief pilot II-XII are grossly intact. No focal motor weakness. ASSESSMENT/PLAN: (K86.9) Mass of pancreas (primary encounter diagnosis) (D49.7) Adrenal tumor Assessment: -Personally reviewed CT images from [facility]. 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 -Discussed with patient and his the approach to diagnosis which would include EGD/EUS or open biopsy. Discussed case with Dr. Stanton who graciously agreed to see the patient this week to coordinate. Plan: -Referral to Dr. Stnaton. Ciaran Gambino, DO Salma Walton LPN 09/06/2018 2:36 PM Signed New patient. Discuss possible pancreas cancer. Salma Walton LPN Referring Provider: JENNY DELVALLE [[id number]] Allergies As of Date: 09/06/2018 Noted Allergy [...] 09/07/18 PROGRESS Observed: 09/06/2018 Status: COMPLETED Source: [place] 9:07 AM [facility] REPOSITORY HNO ID: [id number] Author: Ciaran Gambino Service: (none) Author Type: [...] edema. SKIN: No jaundice or rash. NEUROLOGIC: relief pilot II-XII are grossly intact. No focal motor weakness. ASSESSMENT/PLAN: (K86.9) Mass of pancreas (primary encounter diagnosis) (D49.7) Adrenal tumor Assessment: -Personally reviewed CT images from [facility]. 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 -Discussed with patient and his the approach to diagnosis which would include EGD/EUS or open biopsy. Discussed case with Dr. Stanton who graciously agreed to see the patient this week to coordinate. Plan: -Referral to Dr. Stanton. Ciaran Gambino, DO ABDOMEN/PELVIS WITH Observed: 08/30/2018 Status: F Source: [place] CONTRAST 2:00 PM [facility] REPOSITORY [facility] Imaging Services [address] [place] [address] Abdomen/Pelvis WITH Contrast MR#: [id number] Acct: [id number] Name: JENNY NOBLES Rep #: [id number] : 1940 M 77 From: Stuart Thomas MD PCP: Jenny Delvalle MD Status: REG CLI Study: Abdomen/Pelvis WITH Contrast Date of Exam: 08/30/18 Exam# [id number] Ordering Dr: Jenny Delvalle MD STUDY: CT [...] Service support , CC: Jenny Delvalle MD Molder Meat: Signed SR-ABDOMEN/PELVIS WITH Observed: 08/30/2018 Status: F Source: [place] CONTR[place] IMPORT 12:00 AM [facility] REPOSITORY Images were obtained outside of [facility] [id number] CHEST WITH CONTRAST Observed: 08/28/2018 Status: F Source: [place] 2:50 PM [facility] REPOSITORY [facility] Imaging Services [address] [place] [address] Chest WITH Contrast MR#: [id number] Acct: [id number] Name: JENNY NOBLES Sukumar Rep #: [id number] : 1940 M 77 From: Wood Hamlin MD PCP: Jenny Delvalle MD Status: REG CLI Study: Chest WITH Contrast Date of Exam: 08/28/18 Exam# [id number] Ordering Dr: Jenny Delvalle MD STUDY: CT [...] Service support , CC: Jenny Delvalle MD Molder Meat: Signed CT-CHEST WITH Observed: 08/28/2018 Status: F Source: [place] CONTRAST IMP[place] 12:00 AM [facility] REPOSITORY Images were obtained outside of [facility] [id number] ACUTE ABDOMEN INC Observed: 08/22/2018 Status: F Source: [place] CHEST 11:21 AM [facility] REPOSITORY [facility] Imaging [place] [address] [address] Acute Abdomen Inc Chest MR#: [id number] Acct: [id number] Name: JENNY NOBLES Rep #: [id number] : 1940 M 77 From: Gianluca Dotson MD PCP: Jenny Delvalle MD Status: REG CLI Study: Acute Abdomen Inc Chest Date of Exam: 08/22/18 Exam# [id number] Ordering Dr: Jenny Delvalle MD STUDY: X-RAY [...] Service support , CC: Jenny Delvalle MD Molder Meat: Signed VITAMIN B12 Collected: 08/08/2018 Status: F Source: [place] 10:23 AM [facility] REPOSITORY TYPE CODE TESTS RESULT OUT OF RANGE REFERENCE UNITS LAB L503.0105 211-911 pg/mL Normal Vitamin B12 842 Performed By: #### L503.0105, L503.6075, L503.6150, L503.6550, L506.0250 #### [facility] [address] [place], [address] IRON BINDING Collected: 08/08/2018 Status: F Source: [place] [facility] 10:23 AM [facility] REPOSITORY Order Comment: Is Patient Taking Vitamins or Folic Acid Supplements? N TYPE CODE TESTS RESULT OUT OF RANGE REFERENCE UNITS LAB L503.6075 250-450 ug/dL Normal TIBC 269 Performed By: #### L503.0105, L503.6075, L503.6150, L503.6550, L506.0250 #### [facility] [address] [place], [address] IRON Collected: 08/08/2018 Status: F Source: [place] 10:23 AM [facility] REPOSITORY Order Comment: Is Patient Taking Vitamins or Folic Acid Supplements? N TYPE CODE TESTS RESULT OUT OF RANGE REFERENCE UNITS LAB L503.6150 65-175 ug/dL Low IRON 63 Performed By: #### L503.0105, L503.6075, L503.6150, L503.6550, L506.0250 #### [facility] [address] [place], [address] FERRITIN Collected: 08/08/2018 Status: F Source: [place] 10:23 AM [facility] REPOSITORY Order Comment: Is Patient Taking Vitamins or Folic Acid Supplements? N TYPE CODE TESTS RESULT OUT OF RANGE REFERENCE UNITS LAB L503.6550 26-388 ng/mL Normal FERRITIN 269 Performed By: #### L503.0105, L503.6075, L503.6150, L503.6550, L506.0250 #### [facility] [address] [place], [address] FOLATES, (FOLIC ACID) Collected: 08/08/2018 Status: F Source: [place] 10:23 AM [facility] REPOSITORY Order Comment: Is Patient Taking Vitamins or Folic Acid Supplements? N TYPE CODE TESTS RESULT OUT OF REFERENCE UNITS RANGE LAB L506.0250 3.1-55.4 ng/mL High FOLATES 59.60 Performed By: #### L503.0105, L503.6075, L503.6150, L503.6550, L506.0250 #### [facility] [address] [place], [place], [address] CBC W/DIFF, AUTOMATED Collected: 08/07/2018 Status: F Source: [place] 10:05 [facility] TYPE CODE TESTS RESULT OUT OF [...] Lymph 1.26 Performed By: #### L100.0100 #### [facility] [place], [address] COMPREHENSIVE METABOLIC Collected: 08/07/2018 Status: F Source: [place] [facility] 10:05 AM [facility] REPOSITORY TYPE CODE TESTS RESULT [...] 9 Performed By: #### L500.4050, L500.4100 #### [facility] [address] [facility] [place], [place], [id number] LIPID PROFILE Collected: 08/07/2018 Status: F Source: [place] 10:05 AM [facility] REPOSITORY TYPE CODE TESTS RESULT [...] 17 Performed By: #### L500.4050, L500.4100 #### [facility] [address] [facility] [place], [place], [address] HEMOGLOBIN A1C Collected: 08/07/2018 Status: F Source: [place] 10:05 [facility] TYPE CODE TESTS RESULT OUT OF RANGE REFERENCE UNITS LAB L501.9985 4.2-6.3 % High HGB A1C 6.9 Performed By: #### L501.9985 #### [facility] [address] [place], [place], [id number] URINALYSIS, COMPLETE Collected: 08/07/2018 Status: F Source: [place] 10:05 AM [facility] REPOSITORY Order Comment: How was Urine [...] 0-5 SEEN Performed By: #### L400.0001 #### [facility] [address] [facility] [place], [place], [address] MICROALB:CREAT Collected: 08/07/2018 Status: F Source: [place] RATIO,RANDOM UR 10:05 AM [facility] REPOSITORY TYPE CODE TESTS RESULT OUT OF RANGE REFERENCE UNITS LAB L501.1200 NO RANGE EST. mg/dL Normal UR CREAT 299.00 LAB L502.0500 NO RANGE EST. mg/L Normal 46.4 MICROALBUMIN ,UR LAB L502.0600 <30 mg/g CRE mg/g CRE Normal 15.5 MALB:CREAT Performed By: #### L502.0250 #### [facility] [address] [facility] [place], [address] URINALYSIS, COMPLETE Collected: 06/26/2018 Status: F Source: [place] 8:30 AM [facility] REPOSITORY Order Comment: How was Urine [...] URINE SEEN Performed By: #### L400.0001 #### [facility] [place], [address] Observed: 06/26/2018 Status: F Source: [place] CULTURE, URINE 8:30 AM [facility] REPOSITORY Urine Culture Below infection level. ORGANISM 1: Mixed Gram Positive Organisms Ponder Count <1000 Performed By: #### M100.0650 #### [facility] [place], [place], [id number] POST VOID RESIDUAL Observed: 06/13/2018 Status: F Source: [place] BLADDER 8:45 AM [facility] REPOSITORY [facility] Imaging Services [facility] [place] [address] Post Void Residual Bladder MR#: [id number] Acct: [id number] Name: JENNY NOBLES Rep #: [id number] : 1940 M 77 From: Cooper Rodriguez MD PCP: Jenny Delvalle MD Status: REG CLI Study: Post Void Residual Bladder Date of Exam: 06/13/18 Exam# [id number] Ordering Dr: Jenny Delvalle MD STUDY: ULTRASOUND [...] Service support , CC: Jenny Delvalle MD Molder Meat: Signed URINALYSIS, COMPLETE Collected: 05/01/2018 Status: F Source: [place] 11:43 AM [facility] REPOSITORY Order Comment: Order Date: 05/01/18 Order Info: 62894-1 - UAC How was Urine Obtained? ANESTHESIA TECHNICIAN TO SPECIFY TYPE CODE TESTS RESULT OUT [...] By: #### L400.0001, L100.0500, L500.4050, L501.9985 #### [facility] [address] [place], [place], [address] CBC-COMPLETE BLOOD CNT Collected: 05/01/2018 Status: F Source: [place] NO DIFF 11:43 AM [facility] REPOSITORY Order Comment: Order Date: 05/01/18 Order Info: 50490-9 - CBC TYPE CODE TESTS RESULT OUT [...] By: #### L400.0001, L100.0500, L500.4050, L501.9985 #### [facility] [place], [address] COMPREHENSIVE METABOLIC Collected: 05/01/2018 Status: F Source: [place] [facility] 11:43 AM [facility] REPOSITORY Order Comment: Order Date: 05/01/18 [...] By: #### L400.0001, L100.0500, L500.4050, L501.9985 #### [facility] [address] [place], [place], [address] HEMOGLOBIN A1C Collected: 05/01/2018 Status: F Source: [place] 11:43 AM [facility] REPOSITORY Order Comment: Order Date: 05/01/18 Order Info: 4548-4 - A1C TYPE CODE TESTS RESULT OUT OF RANGE REFERENCE UNITS LAB L501.9985 4.2-6.3 % High HGB A1C 7.1 Performed By: #### L400.0001, L100.0500, L500.4050, L501.9985 #### [facility] [address] [place], [place], [address] COMPREHENSIVE METABOLIC Collected: 01/05/2018 Status: F Source: [place] [facility] 10:45 AM [facility] REPOSITORY TYPE CODE TESTS RESULT [...] GAP 7 Performed By: #### L500.4050 #### [facility] [address] [place], [address] CBC W/DIFF, AUTOMATED Collected: 01/05/2018 Status: F Source: [place] 10:45 AM [facility] REPOSITORY TYPE CODE TESTS RESULT [...] Lymph 1.38 Performed By: #### L100.0100 #### [facility] [address] [place] [address]. [place], [place], [address] ALLERGIES ALLERGIES DATE TYPE / CODE NAME / CODE REACTION SEVERITY SOURCE 08/16/2017 Drug No Known Unknown [place] Allergy/[id number](S Allergies/F Community [facility]OM[facility]) [id number]( Hospital XNORM) Repository 03/09/2010 Miscellaneous OTHER [facility] Allergy/889271787(S Other [place] NOMED CT) Repository NG/[id number](SNOMED OTHER [facility]) Health System Repository ENCOUNTERS ENCOUNTERS ADMIT/DISCHARGE ACCOUNT NUMBER ADMITTING ENCOUNTER LOCATION SOURCE CLASS 09/18/2018/09/18/20 [id number] Ambulatory [address] Repository 09/18/2018/09/19/20 [id number] Ambulatory [address] Repository 09/13/2018/09/13/[id number] Other [place] Repository 09/13/2018/09/13/20 [id number] AWENDER, H S Inpatient [address] MEDICAL Repository CENTERBuildi ng:ENDORoom: POOLBed: 04 09/08/2018/09/08/20 [id number] Ambulatory [address] Repository 09/08/2018 [id number] Ambulatory [facility] Repository 09/08/2018/09/08/20 [id number] Ambulatory [address] MEDICAL Repository CENTERBuildi ng:AKLB 09/08/2018/09/08/20 [id number] Ambulatory [address] Other [place] Repository 09/08/2018/09/08/20 [id number] Ambulatory [address] MEDICAL Repository CENTERBuildi ng:AGGENS1 09/06/2018/09/08/20 [id number] Ambulatory [address] Repository 08/30/[id number] [facility] ding:CT Repository 08/28/[id number] [facility] ding:CT Repository 08/22/[id number] [facility] ding:MTRAD Repository 08/08/[id number] [facility] ding:MFPLAB Repository 08/07/[id number] [facility] ding:MFPLAB Repository 06/26/[id number] [facility] ding:LABSPEC Repository 06/13/[id number] [facility] ding:US Repository 05/01/[id number] [facility] ding:MFPLAB Repository 01/05/[id number] [facility] ding:MFPLAB Repository PAYERS PAYERS ENCOUNTER GUARANTOR PAYER SUBSCRIBER SOURCE 09/13/2018 JENNY BURCH: Primary JENNY BURCH: [facility] [id number] Insurance:[facility] [id number] Rep[facility] [place] [address]Oes: (330) Number: [phone] () [id number] Date: 09/08/2018 JENNY MATTHEWIRMAB: Primary JENNY JIMB: [facility] Insurance:[facility] [id number] [facility]als [facility] Repository [place], [place] [facility] [address]Zor: (330) Number: [phone] () [id number] Date: 09/08/2018 JENNY MATTHEWIRMAB: Primary JENNY NOBLESDOB: [facility] Insurance:[facility] [id number]'s Medical Center [facility] [address]Ywq: (330) Number: [phone] () [id number] Date: 08/30/2018 JENNY RUBIN6 Primary JENNY JIMB: Rodessa TATUM Insurance:[facility] [id number] [place] [facility] [address]Ciw: (330) Number: Repository [phone] () [id number] Date:6684-76-15GT [address] [place] [address]16[address]WL: 08/30/2018 Secondary NOT GIVENUNK Kenn[place] Insurance:SELF PAY [facility] Number: Effective Repository Date:2018-08-30 08/28/2018 JENNY RUBIN6 Primary JENNY JIMB: Rodessa TATUM Insurance:[facility] [id number] [place] [facility] [address]Sno: (330) Number: Repository [phone] () [id number] Date:8968-75-76PV [address] [place] [address] 79682PQ: 08/28/2018 Secondary NOT GIVENUNK Kenn[place] Insurance:SELF PAY [facility] Number: Effective Repository Date:2018-08-25 08/22/2018 Jenny Rubin6 Primary Jenny NoblesDOB: Rodessa Tatum Insurance:[employer] [id number] [place] [facility] [address]Tel: (330) Number: Repository [phone] () [id number] Date:1275-86-72DN [address] [place] [address] 26997LB: 08/22/2018 Secondary NOT GIVENUNK Rodessa Insurance:SELF PAY [facility] Number: Effective Repository Date:2018-08-22 08/08/2018 Jenny Nobles1436 Primary Jenny NoblesDOB: Rodessa Tatum Insurance:[employer] [id number] [place] [facility] [address]Tel: (330) Number: Repository [phone] () [id number] Date:9571-35-25EY [address] [place] [address] 00757CI: 08/08/2018 Secondary NOT GIVENUNK Rodessa Insurance:SELF PAY [facility] Number: Effective Repository Date:2018-08-08 08/07/2018 Jenny Nobles1436 Primary Jenny NoblesDOB: Rodessa Reagan Insurance:[employer] [id number] [place] [facility] [address]Tel: (330) Number: Repository [phone] () [id number] Date:9278-49-77SA [address] [place] [address] 81126NW: 08/07/2018 Secondary NOT GIVENUNK Kenn[place] Insurance:SELF PAY [facility] Number: Effective Repository Date:2018-08-07 06/26/2018 Jenny R [id number] Primary Jenny JimB: Kennedi Tatum Insurance:[employer] [id number] [place] [facility] [address]Tel: (330) Number: Repository [phone] () [id number] Date:2353-18-60WP [address] [place] [address] 68513XV: 06/26/2018 Secondary NOT GIVENUNK Rodessa Insurance:SELF PAY [facility] Number: Effective Repository Date:2018-06-26 06/13/2018 Jenny Sukumar [id number] Primary Jenny NoblesDOB: Rodessa Reagan Insurance:[employer] [id number] [place] [facility] [address]Tel: (330) Number: Repository [phone] () [id number] Date:9606-89-38HO [id number] [place] [address]PR: 06/13/2018 Secondary NOT GIVENUNK Kenn[place] Insurance:SELF PAY [facility] Number: Effective Repository Date:2018-05-02 05/01/2018 Jenny Sukumar [id number] Primary Jenny NoblesDOB: Rodessa Tatum Insurance:[employer] [id number] [place] [facility] [address]Tel: (330) Number: Repository [phone] () [id number] Date:4951-44-61BK [address] [place] [address] 08411SI: 05/01/2018 Secondary NOT GIVENUNK Kenn[place] Insurance:SELF PAY [facility] Number: Effective Repository Date:2018-05-01 01/05/2018 Jenny Sukumar [id number] Primary Jenny NoblesDOB: Rodessa Tatum Insurance:[employer] [id number] [place] [facility] [address]Tel: (131) Number: Repository [phone] () [id number] Date:4984-89-09GV [address] [place] [address] 68133EJ: 01/05/2018 Secondary NOT GIVENUNK Kenn[place] Insurance:SELF PAY [facility] Number: Effective Repository Date:2018-01-05
== END ==
PROVIDERS: Family Provider Family Medicine; PCP Family Medicine; Referring Provider Family Medicine; Visit Provider Family Medicine
DX: K86.9 Disease of pancreas, unspecified (principal)
CPT/HCPCS: 74177; Q9967

== ENCOUNTER → 2018-09-29 07:42 | Outpatient (CLI) | payer MEDICARE, SELFPAY ==
[2018-09-29] VITALS (10 sets, daily range): BP systolic 99–157; BP diastolic 48–100; PULSE 68–92; RESP 16–20; TEMP 36.9; O2SAT 94–95; BMI 20.9
--- NOTE | 2018-09-29 07:53 | CT_ITS ---
Multiple transaxial computerized cuts were obtained while the patient is in a prone position and an attempt was made to obtain FNA from the left adrenal gland and because of the costophrenic was on the way this was done although the patient developed mild pneumothorax so at this point the examination was terminated and the procedure was not completed. The situation was explained to the patient , the was kept in the department for about 2 hours then he left home after chest x-ray revealed minimal pneumothorax. Electronically Signed: Matt Cardenas, at 15:52 EST Tel , Service support , CT/Biopsy/Inj or Needle Placement
[2018-09-29 08:15] LABS: International Normalized Ratio 1.1; Prothrombin Time (Protime)PT. 14.1 SECONDS (11.7-14.9)
[2018-09-29] MEDS: fentaNYL 100 MCG/2 ML Ampul IV (09:13)
[2018-09-29] MEDS: Midazolam 2 MG/2 ML Syringe IV (09:14)
--- NOTE | 2018-09-29 12:00 | RAD_ITS ---
STUDY: X-RAY CHEST REASON FOR EXAM: Male, 77 years old. TECHNIQUE: COMPARISON: None. FINDINGS: The cardiac silhouette is not enlarged there is mild tortuosity of the thoracic aorta. There is patchy changes involving the right mid and lower lung field. This did not change significantly since the study of August 22, 2018. There is minimal pneumothorax seen on the left side this is followed the attempted biopsy of the left adrenal gland ,please refer to the CT report done same day. Electronically Signed: Matt Cardenas, at 16:13 EST Tel , Service support , RAD/Chest Insp/Exp 2 View
== END ==
PROVIDERS: Family Provider Family Medicine; PCP Family Medicine; Referring Provider Internal Medicine Hematology & Oncology; Visit Provider Internal Medicine Hematology & Oncology
DX: C25.9 Malignant neoplasm of pancreas, unspecified (principal)
CPT/HCPCS: 36415; 71046; 77012; 85610; 99156; 99157; J7040; A4216

== ENCOUNTER 2018-09-30 07:45 | Inpatient (IN) | payer MEDICARE, SELFPAY ==
[2018-09-29 08:33] VITALS: BMI 20.9
[2018-09-30] VITALS (8 sets, daily range): BP systolic 107–143; BP diastolic 54–82; PULSE 60–89; RESP 16–24; TEMP 36.3–36.9; O2SAT 85–98; BMI 21.3
--- NOTE | 2018-09-30 08:00 | RAD_ITS ---
STUDY: X-RAY CHEST REASON FOR EXAM: Male, 77 years old. Increasing shortness of breath. History of puncture left lung during attempted adrenal gland biopsy yesterday. TECHNIQUE: PA and lateral views of the chest. COMPARISON: Frontal inspiratory and expiratory views of the chest September 29, 2018. FINDINGS: There is persistent ill-defined infiltrate in the right lung base. Left pneumothorax is slightly worsened, the upper margin of the lung now projecting just below the posterior fifth rib, contrasting with just below the posterior fourth rib on expiratory view yesterday. The patient was in a mildly more lordotic position yesterday, which also may account for some of the change, and the lateral component of the pneumothorax is less conspicuous here. There is mild worsened subsegmental volume loss in the left base today. Normal size heart. Normal mediastinum and aditi. Normal visualized pulmonary arteries. Normal visualized aortic arch and descending thoracic aorta. There are stable multilevel degenerative changes of the visualized thoracic spine. Normal visualized ribs, clavicles, and shoulders. There is no demonstrated abnormality of the visualized soft tissue structures of the upper abdomen. RAD/Chest PA and Lateral IMPRESSION: 1. Slightly worsened left apical pneumothorax with worsening volume loss in the left base. 2. Stable ill-defined infiltrate in the right lung base. Electronically Signed: Keven De Jesus MD at 9:05 EST , Service support ,
--- NOTE | 2018-09-30 08:01 | ED.VISSUMM ---
- ER Visit Summary Date of Service: 09/30/18 Chief Complaint: Shortness of breath, left-sided back pain History of Present Illness: The patient is a 77 M who states he has more short of breath today and has some pain in the left side of his back. Patient was here yesterday and an attempted biopsy of his left adrenal gland due to a mass. During the procedure he sustained a minimal pneumothorax that was monitored for 2 hours in the radiology department. He was discharged home to follow-up. Throughout the night he has been coughing more. He has lung pain. Shortness of breath is increasing. He has no history of any lung issues. He does not wear home oxygen. He does smoke cigars. Physical Examination: Vital signs reviewed. HEENT exam unremarkable. There is no tracheal deviation. Heart is regular rate and rhythm without murmurs. Lungs have diminished sounds on the left. Abdomen is soft and nontender. Extremities reveal no edema. Skin exam normal. Neurologic exam normal. Test Results: Chest x-ray reveals a worsening left-sided pneumo thorax. There is an old right-sided infiltrate Emergency Department Course and Treatment: The patient does have a worsening of his pneumothorax. He was 85% on room air so he was placed on nasal cannula oxygen. The patient then consented to a left-sided pigtail tube thoracostomy Procedure note: Written consent was obtained. Under sterile conditions, the patient's left chest was prepped using ChloraPrep. Lidocaine was used to anesthetize the area locally. The skin was incised with a scalpel. The pigtail catheter was then inserted over top of the fifth intercostal space. It entered the chest cavity and there was a withdrawal of air. It was sutured in using nylon suture. Patient tolerated this well. Repeat x-ray reveals improvement of the patient's pneumothorax. I discussed this with Dr. Terrell who reviewed the patient's x-ray and recommended the patient be admitted to the hospitalist. I did discuss with the hospitalist. The patient's right-sided infiltrate has been present for a month. He has no fever or infectious-like symptoms so we will not treat this at this time. Dr. Terrell then called back and stated that the patient might need to be transferred to a larger hospital to get this biopsy done as the patient has no diagnosis yet. However, I did discuss this with the patient and he would like to discuss with Dr. Gambino before any transfer would happen. I feel that that is appropriate as the patient can have his pneumothorax treated here and then he can have his follow-up as an outpatient for appropriate biopsy and diagnoses of these pancreatic and adrenal masses. Treatment Plan: [] Disposition: Admit Impression: Left pneumothorax status post adrenal biopsy Pigtail tube thoracostomy by ED physician This note was generated with [employer] dictation software. It may contain incorrect words, spelling, and punctuation that were not noted in review of the chart prior to signing ED Disposition - Plan for ED Patient: Chief Complaint: Shortness of Breath Referrals: Alex Romero MD [Primary Care Provider] -
--- NOTE | 2018-09-30 09:27 | RAD_ITS ---
STUDY: X-RAY CHEST REASON FOR EXAM: Male, 77 years old. Chest tube. TECHNIQUE: Single AP portable view of the chest. COMPARISON: 09/21/2018, and also earlier today at 8:12 AM.. FINDINGS: Since previous exam, patient has had a thin bore chest tube positioned into the lower left hemithorax. There is now no definite pneumothorax. No other changes. Again seen is extensive infiltrate in the mid and lower right lung. RAD/CXR for Line Placement IMPRESSION: No definite residual left pneumothorax. Electronically Signed: Cooper Rodriguez MD at 10:06 EST , Service support ,
--- NOTE | 2018-09-30 09:33 | ED.RN ---
dr dominguez put chest tube in and pt is getting an xray for tube placement.
--- NOTE | 2018-09-30 13:27 | PCM.HP.STD ---
Problem List (1) Pneumothorax after biopsy Status: Acute (2) Diabetes type 2, controlled Status: Chronic (3) Pancreatic mass Status: Chronic (4) Adrenal mass, left Status: Chronic History of Present Illness Date of Admission: 09/30/18 Chief Complaint: SOB The patient is a 77 year old M with PMH as below who presents after having an attempted left adrenal biopsy done here at this hospital yesterday. He presents with a pneumothorax on the left. It was causing him chest pain and shortness of breath. In the ER a chest tube was able to be placed with complete resolution of the pneumothorax and a Heimlich valve was placed. General surgery was also consulted in the ER for management of the chest tube. Of note his pancreatic mass diagnosis is very new. He is already had an EBUS evaluation and biopsy done at another institution on his pancreatic mass. CT abdomen and pelvis demonstrated a left adrenal mass which was what was attempted to be biopsied yesterday. Unfortunately the biopsy was complicated and unable to be performed. His oncologist, Dr. Gambino, was awaiting pathology results from the adrenal mass prior to instituting chemotherapy. Unfortunately at this time the pancreatic mass cannot be surgically removed because it is encasing the splenic vein and the surgeon at [facility] wanted to attempt chemotherapy in the hopes that it would shrink the tumor enough to be resected. He knows that he is lost over 55 pounds accidentally from 2 years ago, and he was just found to be, diabetic about a year ago and was started on Tradjenta. Past Medical History Past Medical History (Chronic Problems): Chronic Problems Diabetes type 2, controlled (Chronic) Pancreatic mass (Chronic) Adrenal mass, left (Chronic) Allergies No Known Allergies Allergy (Verified 09/30/18 07:46) Home Medications: Ambulatory Orders Medication Instructions Recorded Multivitamin [Daily Multiple 1 each PO DAILY 08/16/17 Vitamin] Hydrocodone/Acetaminophen 1 - 2 tab PO Q6H PRN PRN 09/30/18 [Hydrocodone-Acetamin 5-325 mg] Linagliptin [Tradjenta] 5 mg PO DAILY 09/30/18 Senna [Senokot] 2 tablet PO DAILY 09/30/18 Tamsulosin HCl 0.4 mg PO DAILY 09/30/18 Surgical History: no surgical history Smoking Status: Current every day smoker Tobacco Use: Cigarettes Alcohol: None Drugs: None - *Family History Maternal History Items: Cancer - colon Review of Systems Constitutional: Reports: Weight Change HEENT: Denies: Head Aches, Sinus Congestion, Sinus Drainage Cardiovascular: Denies: Chest Pain, Palpitations Respiratory: Reports: Cough, Pleuritic Pain, Shortness of Breath. Denies: Shortness of breath at rest, Sputum production Gastrointestinal: Denies: Abdominal Pain, Nausea, Vomiting Genitourinary: Denies: Dysuria Musculoskeletal: Denies: Joint Pain, Joint Tenderness Skin: Denies: Rash, Wounds Neurological: Denies: Numbness, Tingling, Focal weakness Psychiatric: Denies: Anxiety, Depression Hematologic/ Lymphatic: Denies: Easy Bruising, Easy Bleeding VTE Information - Inpt Only VTE Present on Admission: No Patient Problems: Active and Suspected Problems Pneumothorax after biopsy (Acute) - Physical Exam General: Alert, Oriented x3, Cooperative, No apparent distress HEENT: Atraumatic, PERRLA, EOMI, Normocephalic Oral: Moist Mucosa Neck: Supple, No JVD Lungs: Clear to auscultation, Normal air movement, No rhonchi, No wheeze, No rales Cardiovascular: Regular rate, Regular Rhythm, Normal S1, Normal S2, No murmurs, - - Chest tube with flutter valve on the left Abdomen: Soft, Non Tender, Non-Distended, No Hepato-splenomegaly Extremities: No edema, Capillary Refill Less than 3 Seconds Skin: No rashes, No breakdown Neurological: Neuro grossly intact, Sensory exam intact to light touch and pain Psych/Mental Status: Normal Affect, Appropriate Vital Signs Temp Pulse Resp BP Pulse Ox 98.4 F 60 18 117/78 96 09/30/18 10:56 09/30/18 10:56 09/30/18 10:56 09/30/18 10:56 09/30/18 10:56 Oxygen Flow Rate (L/min) 2 Oxygen Delivery Method Nasal Cannula Weight: 157 lb 6.561 oz Body Mass Index (BMI) 21.3 Intake and Output for Last 24 Hours 09/28/18 09/29/18 09/30/18 23:59 23:59 23:59 Intake Total 500 / 500 Balance 500 / 500 Assessment/Plan All Active Problems Pneumothorax after biopsy (Acute) 1. Pneumothorax after left adrenal biopsy -Chest tube in place, with resolution of pneumothorax -Chest x-ray in the morning -Consult to general surgery for management 2. Pancreatic mass and adrenal mass -He will need another attempted left adrenal biopsy to further characterize the extent of the cancer -He is to undergo chemotherapy as an outpatient -Surgical resection at this time is not possible unless the tumor shrunk 3. DM 2 -Continue with his Tradjenta -Blood sugars are controlled as an output 4. Right interstitial changes in the lung -When he previously had CT scans it was found to show pneumonia and he was treated for it as an outpatient -Currently denies any continued symptoms and is afebrile without a leukocytosis -Chest x-ray can lag resolution of symptoms therefore we will continue to monitor DVT: Lovenox/SCDs Code Visit Inpatient E&M: 04964 Init Hosp L3
--- NOTE | 2018-09-30 14:48 | PCM.CONS.GEN ---
Reason for Consult Date of Consultation: 09/30/18 History of Present Illness: The patient is a 77 year old M presented to ER due to left chest pain and SOB. Pt had attempted left adrenal biopsy yesterday, which was aborted due to PTX. It was stable 2 hr after procedure aborted and pt was sent home, but came to ER due to left chest pain w breathing/SOB. Pt CXR showed a slightly worse PTX on left and stable density in R mid/lower lung. Pt had a pigtail CT placed in ER with no residual PTX on CXR. Pt has PMH for pancreatic mass, which pt states was biopsied at [facility] and showed cancer, but Dr. Gambino wanted the left adrenal also biopsied before starting chemotherapy. Past Medical History Past Medical History (Chronic Problems): Chronic Problems Diabetes type 2, controlled (Chronic) Pancreatic mass (Chronic) Adrenal mass, left (Chronic) Allergies No Known Allergies Allergy (Verified 09/30/18 07:46) Home Medications: Ambulatory Orders Medication Instructions Recorded Multivitamin [Daily Multiple 1 each PO DAILY 08/16/17 Vitamin] Hydrocodone/Acetaminophen 1 - 2 tab PO Q6H PRN PRN 09/30/18 [Hydrocodone-Acetamin 5-325 mg] Linagliptin [Tradjenta] 5 mg PO DAILY 09/30/18 Senna [Senokot] 2 tablet PO DAILY 09/30/18 Tamsulosin HCl 0.4 mg PO DAILY 09/30/18 Surgical History: no surgical history Smoking Status: Current every day smoker Tobacco Use: Cigarettes Alcohol: None Drugs: None - *Family History Maternal History Items: Cancer - colon Review of Systems Constitutional: Denies: Chills, Fever Eyes: Denies: Blurred vision HEENT: Denies: Difficulty Swallowing Cardiovascular: Denies: Palpitations Respiratory: Reports: Pleuritic Pain, Shortness of Breath Gastrointestinal: Denies: Abdominal Pain, Nausea, Vomiting Genitourinary: Denies: Dysuria Skin: Denies: Rash Psychiatric: Denies: Anxiety, Depression - Physical Exam General: Alert, Oriented x3, Cooperative, No apparent distress HEENT: Atraumatic Lungs: Clear to auscultation - left lung, Rhonchi - right base, - - left pigtail CT in place attached to flutter valve Cardiovascular: Regular rate Abdomen: Soft, Non Tender, Non-Distended Extremities: No clubbing, No cyanosis, No edema Neurological: Cranial nerves II-XII grossly intact Psych/Mental Status: Normal Affect Vital Signs Temp Pulse Resp BP Pulse Ox 98.4 F 60 18 117/78 96 09/30/18 10:56 09/30/18 10:56 09/30/18 10:56 09/30/18 10:56 09/30/18 10:56 Oxygen Flow Rate (L/min) 2 Oxygen Delivery Method Nasal Cannula Weight: 157 lb 6.561 oz Body Mass Index (BMI) 21.3 Intake and Output for Last 24 Hours 09/28/18 09/29/18 09/30/18 23:59 23:59 23:59 Intake Total 500 / 500 Balance 500 / 500 Assessment/Plan All Active Problems Pneumothorax after biopsy (Acute) 1. Continue CT to flutter valve, Xray after placement showed no PTX, will recheck CXR in AM, if ok will place off to flutter valve, will add a stopcock to the pigtail CT. Code Visit Inpatient E&M: 24806 Init Hosp L2
[2018-09-30] MEDS: HYDROcodone Bitartrate/Apap 5/325 Tablet PO ×2 (14:53→20:54)
--- NOTE | 2018-09-30 18:55 | PCA ---
Latisha may be reached at [phone]
--- NOTE | 2018-09-30 22:00 | RAD_ITS ---
STUDY: X-RAY CHEST REASON FOR EXAM: Male, 77 years old. Pneumothorax. History of constipation and chronic cough. TECHNIQUE: Single frontal view of the chest. COMPARISON: Earlier in the day. FINDINGS: A left thoracostomy tube is stable. There is no pneumothorax. The opacity in the right lung has increased in size and now partially involves the right upper lobe. There is no demonstrated pleural abnormality. There is borderline cardiomegaly unchanged. Normal mediastinum and aditi. Normal visualized pulmonary arteries. Normal visualized aortic arch and descending thoracic aorta. Normal visualized thoracic spine. Normal visualized ribs, clavicles, and shoulders. There is no demonstrated abnormality of the visualized soft tissue structures of the upper abdomen. RAD/Chest 1 View (Portable) IMPRESSION: Stable thoracostomy tube and hyperexpansion of the left lung. Increasing opacities in the right lung as described. Electronically Signed: Rios De Leon MD at 18:00 EST , Service support ,
[2018-10-01] VITALS (7 sets, daily range): BP systolic 107–135; BP diastolic 71–86; PULSE 62–82; RESP 16–22; TEMP 36.4–36.8; O2SAT 92–96
[2018-10-01] MEDS: HYDROcodone Bitartrate/Apap 5/325 Tablet PO ×2 (03:33→14:20)
--- NOTE | 2018-10-01 05:40 | RAD_ITS ---
STUDY: X-RAY CHEST REASON FOR EXAM: Male, 77 years old. Pneumothorax TECHNIQUE: Single AP portable view of the chest. COMPARISON: September 30, 2018 5:12 PM FINDINGS: There is a left side chest tube. There is no visualized pneumothorax. There is focal opacity in the right midlung zone right lower lobe. Normal size heart. Normal mediastinum and aditi. Normal visualized pulmonary arteries. There is atherosclerotic calcification of the aortic arch with tortuosity. Normal visualized thoracic spine. Normal visualized ribs, clavicles, and shoulders. There is no demonstrated abnormality of the visualized soft tissue structures of the upper abdomen. RAD/Chest 1 View (Portable) IMPRESSION: Small caliber chest tube left chest, no visualized pneumothorax. Right midlung zone and right lower lobe infiltrates, possibly infectious or neoplastic. Electronically Signed: Jennifer Tapia MD at 8:58 EST Tel , Service support ,
--- NOTE | 2018-10-01 06:43 | PCM.PN.HOSP ---
Patient Problems: Active and Suspected Problems Pneumothorax after biopsy (Acute) Subjective: Doing much better after the chest tube was placed. Still had some discomfort overnight with chest pain a little bit of shortness of breath coughing has improved a little bit as well. No fevers, chills. Vitals/I&O's: Vital Signs Temp Pulse Resp BP Pulse Ox 97.7 F L 63 20 H 131/78 H 96 10/01/18 04:02 10/01/18 04:02 10/01/18 04:02 10/01/18 04:02 10/01/18 04:02 Oxygen Flow Rate (L/min) 2 Oxygen Delivery Method Nasal Cannula Weight: 157 lb 6.561 oz Body Mass Index (BMI) 21.3 Intake and Output for Last 24 Hours 09/29/18 09/30/18 10/01/18 23:59 23:59 23:59 Intake Total 1450 / 1450 300 / 300 Balance 1450 / 1450 300 / 300 General: Alert, Oriented x3, Cooperative, No apparent distress HEENT: Atraumatic, PERRLA, EOMI, Normocephalic Oral: Moist Mucosa Neck: Supple, No JVD Lungs: Clear to auscultation, Normal air movement, No rhonchi, No wheeze, No rales Cardiovascular: Regular rate, Regular Rhythm, Normal S1, Normal S2, No murmurs, - - Chest tube with flutter valve on the left Abdomen: Soft, Non Tender, Non-Distended, No Hepato-splenomegaly Extremities: No edema, Capillary Refill Less than 3 Seconds Skin: No rashes, No breakdown Neurological: Neuro grossly intact, Sensory exam intact to light touch and pain Psych/Mental Status: Normal Affect, Appropriate Current Medications Hydrocodone Bitart/Acetaminophen ([place] 5mg-325mg) 0 tablet PO Q6H PRN PRN PRN Reason: PAIN Last Admin: 10/01/18 03:33 Dose: 1 tablet Enoxaparin Sodium (Lovenox) 40 mg SC DAILY@1000 JES Linagliptin (Tradjenta) 5 mg PO DAILY JES Magnesium Hydroxide (Milk Of Magnesia) 30 ml PO DAILY PRN PRN PRN Reason: Constipation Multivitamins (Multivitamin) 1 tablet PO DAILY@0800 JES Senna (Senokot) 2 tablet PO DAILY JES Tamsulosin HCl (Flomax) 0.4 mg PO DAILY@0830 [facility] Medical Necessity - Tobacco Use Smoking Status: Current every day smoker Tobacco Use: Cigarettes Assessment/Plan All Active Problems Pneumothorax after biopsy (Acute) 1. Pneumothorax after left adrenal biopsy -Chest tube in place, with resolution of pneumothorax -Chest x-ray today pending final read though appears to continue to have resolution of pneumothorax -Consult to general surgery for management - Repeat CXR in am and if ptx is still resolved the chest tube can be removed 2. Pancreatic mass and adrenal mass -He will need another attempted left adrenal biopsy to further characterize the extent of the cancer -He is to undergo chemotherapy as an outpatient -Surgical resection at this time is not possible unless the tumor shrunk since it is encapsulating the splenic vein 3. DM 2 -Continue with his Tradjenta -Blood sugars are controlled as an output 4. Right interstitial changes in the lung -When he previously had CT scans it was found to show pneumonia and he was treated for it as an outpatient -Currently denies any continued symptoms and is afebrile -Chest x-ray can lag resolution of symptoms therefore we will continue to monitor DVT: Lovenox/SCDs Code Visit Inpatient E&M: 64368 Subs Hosp L2
--- NOTE | 2018-10-01 06:47 | PN_ITS ---
Patient Problems: Active and Suspected Problems Pneumothorax after biopsy (Acute) Subjective: Doing much better after the chest tube was placed. Still had some discomfort overnight with chest pain a little bit of shortness of breath coughing has improved a little bit as well. No fevers, chills. Vitals/I&O's: Vital Signs Temp Pulse Resp BP Pulse Ox 97.7 F L 63 20 H 131/78 H 96 10/01/18 04:02 10/01/18 04:02 10/01/18 04:02 10/01/18 04:02 10/01/18 04:02 Oxygen Flow Rate (L/min) 2 Oxygen Delivery Method Nasal Cannula Weight: 157 lb 6.561 oz Body Mass Index (BMI) 21.3 Intake and Output for Last 24 Hours 09/29/18 09/30/18 10/01/18 23:59 23:59 23:59 Intake Total 1450 / 1450 300 / 300 Balance 1450 / 1450 300 / 300 General: Alert, Oriented x3, Cooperative, No apparent distress HEENT: Atraumatic, PERRLA, EOMI, Normocephalic Oral: Moist Mucosa Neck: Supple, No JVD Lungs: Clear to auscultation, Normal air movement, No rhonchi, No wheeze, No rales Cardiovascular: Regular rate, Regular Rhythm, Normal S1, Normal S2, No murmurs, - - Chest tube with flutter valve on the left Abdomen: Soft, Non Tender, Non-Distended, No Hepato-splenomegaly Extremities: No edema, Capillary Refill Less than 3 Seconds Skin: No rashes, No breakdown Neurological: Neuro grossly intact, Sensory exam intact to light touch and pain Psych/Mental Status: Normal Affect, Appropriate Current Medications Hydrocodone Bitart/Acetaminophen ([place] 5mg-325mg) 0 tablet PO Q6H PRN PRN PRN Reason: PAIN Last Admin: 10/01/18 03:33 Dose: 1 tablet Enoxaparin Sodium (Lovenox) 40 mg SC DAILY@1000 JES Linagliptin (Tradjenta) 5 mg PO DAILY JES Magnesium Hydroxide (Milk Of Magnesia) 30 ml PO DAILY PRN PRN PRN Reason: Constipation Multivitamins (Multivitamin) 1 tablet PO DAILY@0800 JES Senna (Senokot) 2 tablet PO DAILY JES Tamsulosin HCl (Flomax) 0.4 mg PO DAILY@0830 [facility] Medical Necessity - Tobacco Use Smoking Status: Current every day smoker Tobacco Use: Cigarettes Assessment/Plan All Active Problems Pneumothorax after biopsy (Acute) 1. Pneumothorax after left adrenal biopsy -Chest tube in place, with resolution of pneumothorax -Chest x-ray today pending final read though appears to continue to have resolution of pneumothorax -Consult to general surgery for management - Repeat CXR in am and if ptx is still resolved the chest tube can be removed 2. Pancreatic mass and adrenal mass -He will need another attempted left adrenal biopsy to further characterize the extent of the cancer -He is to undergo chemotherapy as an outpatient -Surgical resection at this time is not possible unless the tumor shrunk since it is encapsulating the splenic vein 3. DM 2 -Continue with his Tradjenta -Blood sugars are controlled as an output 4. Right interstitial changes in the lung -When he previously had CT scans it was found to show pneumonia and he was treated for it as an outpatient -Currently denies any continued symptoms and is afebrile -Chest x-ray can lag resolution of symptoms therefore we will continue to monitor DVT: Lovenox/SCDs Code Visit Inpatient E&M: 01785 Subs Hosp L2
[2018-10-01] MEDS: Multivitamins,Therapeutic Tablet 1 TABLET PO (07:39)
[2018-10-01] MEDS: Tamsulosin HCl 0.4 MG Capsule PO (07:39)
--- NOTE | 2018-10-01 07:44 | PCM.PN.SRG ---
Patient Problems: Active and Suspected Problems Pneumothorax after biopsy (Acute) Subjective: Patient denies any shortness of breath this morning. His chest x-ray does appeared to have no pneumothorax still with the flutter valve open. - Physical Exam General: Alert, Oriented x3, Cooperative, No apparent distress HEENT: Atraumatic Lungs: Clear to auscultation - on left, Rhonchi - right lung mid/base Cardiovascular: Regular rate Vital Signs Temp Pulse Resp BP Pulse Ox 97.7 F L 63 20 H 131/78 H 96 10/01/18 04:02 10/01/18 04:02 10/01/18 04:02 10/01/18 04:02 10/01/18 04:02 Oxygen Flow Rate (L/min) 2 Oxygen Delivery Method Nasal Cannula Weight: 157 lb 6.561 oz Body Mass Index (BMI) 21.3 Intake and Output for Last 24 Hours 09/29/18 09/30/18 10/01/18 23:59 23:59 23:59 Intake Total 1450 / 1450 300 / 300 Balance 1450 / 1450 300 / 300 Medical Necessity - Tobacco Use Smoking Status: Current every day smoker Tobacco Use: Cigarettes Assessment/Plan All Active Problems Pneumothorax after biopsy (Acute) 1. Did add a stopcock to the pigtail catheter to shut off the flutter valve. Did instruct the nurse how to open back to a flutter valve if patient has any shortness of breath. We will plan for chest x-ray in 4 hours and another one in the morning. Melinda Terrell M.D. Pager: [phone] [facility] [address] [place] [address], [facility], [address] [place] [address] Office: [phone]
[2018-10-01] MEDS: LINAGLIPTIN 5 MG TABLET PO (09:49)
[2018-10-01] MEDS: Senna Tablet 2 TABLET PO (09:49)
[2018-10-01] MEDS: Enoxaparin 40 MG/0.4 ML Syringe SC (09:49)
--- NOTE | 2018-10-01 11:30 | RAD_ITS ---
STUDY: X-RAY CHEST REASON FOR EXAM: Male, 77 years old. Chest tube TECHNIQUE: AP COMPARISON: Earlier the same day FINDINGS: Small caliber left chest tube is stable projecting over the lateral left mid chest. Parenchymal consolidation involving the right mid to lower lung zone is stable with mild atelectasis in the left lung base. No demonstrated pneumothorax. Normal size heart. Normal mediastinum and aditi. Normal visualized pulmonary arteries. There is atherosclerotic tortuosity of the aortic arch and descending thoracic aorta. No acute bony process. There is no demonstrated abnormality of the visualized soft tissue structures of the upper abdomen. RAD/Chest 1 View IMPRESSION: 1. Left chest tube without demonstrated pneumothorax. 2. Stable right mid to lower lung zone airspace disease. Follow-up is recommended. Electronically Signed: Gianluca Dotson MD at 16:55 EST , Service support ,
--- NOTE | 2018-10-02 01:35 | RAD_ITS ---
STUDY: X-RAY CHEST REASON FOR EXAM: Male, 77 years old. Abnormal chest sounds in the upper quadrant of the left lung. TECHNIQUE: Single AP portable view of the chest. COMPARISON: 10/01/2018 FINDINGS: Chest tube is seen on the left side is in good position. There is no residual pneumothorax Airspace disease seen in the right lower lobe suggesting pneumonia. Ill-defined airspace opacities are also seen in the left lung lower lobe. There is no demonstrated pleural abnormality. Normal size heart. Normal mediastinum and aditi. Normal visualized pulmonary arteries. Normal visualized aortic arch and descending thoracic aorta. There are diffuse degenerative changes of the visualized thoracic spine. Normal visualized ribs, clavicles, and shoulders. There is no demonstrated abnormality of the visualized soft tissue structures of the upper abdomen. RAD/Chest 1 View (Portable) IMPRESSION: Bilateral pneumonia more prominent in the right lower lobe. Left chest tube in good position. There is no residual pneumothorax. Electronically Signed: Shravan Livingston MD at 2:18 EST Tel , Service support ,
[2018-10-02 03:36] VITALS: BP 136/82; PULSE 77; RESP 18; TEMP 36.8; O2SAT 96
[2018-10-02] MEDS: 0.9% NaCl IVPB Med Flush (250 mL) 15 ML IV (03:40)
[2018-10-02] MEDS: Ceftriaxone 1 GM/50 ML BAG IV (03:45)
[2018-10-02 06:21] LABS: M R Staph aureus DNA By PCR Negative (Negative); Probe Check PASS; Specimen Processing Control PASS
--- NOTE | 2018-10-02 08:27 | PCM.PN.SRG ---
Patient Problems: Active and Suspected Problems Pneumothorax after biopsy (Acute) Subjective: Patient denies any increased shortness of breath during his cough. Chest x-ray done at 1 AM called no residual pneumo and also question whether there is pneumonia however these densities have been present since August. - Physical Exam General: Alert, Oriented x3, Cooperative, No apparent distress HEENT: Atraumatic Lungs: Clear to auscultation - On the left, Rhonchi - At the right lung base Cardiovascular: Regular rate Vital Signs Temp Pulse Resp BP Pulse Ox 98.3 F 77 18 136/82 H 96 10/02/18 03:36 10/02/18 03:36 10/02/18 03:36 10/02/18 03:36 10/02/18 03:36 Oxygen Flow Rate (L/min) 2 Oxygen Delivery Method Nasal Cannula Weight: 157 lb 6.561 oz Body Mass Index (BMI) 21.3 Intake and Output for Last 24 Hours 09/30/18 10/01/18 10/02/18 23:59 23:59 23:59 Intake Total 1450 / 1450 2250 / 2250 530 / 530 Balance 1450 / 1450 2250 / 2250 530 / 530 Laboratory Tests Past 24 Hrs 10/02/18 03:50 S.aureus Protein A PCR Cancelled MRSA (PCR) Negative Medical Necessity - Tobacco Use Smoking Status: Current every day smoker Tobacco Use: Cigarettes Assessment/Plan All Active Problems Pneumothorax after biopsy (Acute) 1. Removed patient's pigtail chest tube this morning. We will check a two-view chest x-ray in 2 hours. If it is okay patient is okay to be DC'd from my standpoint. Will keep the dressing on for 4-5 days. It is okay to remove the dressing. Melinda Terrell M.D. Pager: [phone] [facility] [address] [place] [address], [facility], [address] [place] [address] Office: [phone]
[2018-10-02] MEDS: Multivitamins,Therapeutic Tablet 1 TABLET PO (08:29)
[2018-10-02] MEDS: Tamsulosin HCl 0.4 MG Capsule PO (08:29)
--- NOTE | 2018-10-02 08:31 | PN.SURG_ITS ---
Patient Problems: Active and Suspected Problems Pneumothorax after biopsy (Acute) Subjective: Patient denies any increased shortness of breath during his cough. Chest x-ray done at 1 AM called no residual pneumo and also question whether there is pneumonia however these densities have been present since August. - Physical Exam General: Alert, Oriented x3, Cooperative, No apparent distress HEENT: Atraumatic Lungs: Clear to auscultation - On the left, Rhonchi - At the right lung base Cardiovascular: Regular rate Vital Signs Temp Pulse Resp BP Pulse Ox 98.3 F 77 18 136/82 H 96 10/02/18 03:36 10/02/18 03:36 10/02/18 03:36 10/02/18 03:36 10/02/18 03:36 Oxygen Flow Rate (L/min) 2 Oxygen Delivery Method Nasal Cannula Weight: 157 lb 6.561 oz Body Mass Index (BMI) 21.3 Intake and Output for Last 24 Hours 09/30/18 10/01/18 10/02/18 23:59 23:59 23:59 Intake Total 1450 / 1450 2250 / 2250 530 / 530 Balance 1450 / 1450 2250 / 2250 530 / 530 Laboratory Tests Past 24 Hrs 10/02/18 03:50 S.aureus Protein A PCR Cancelled MRSA (PCR) Negative Medical Necessity - Tobacco Use Smoking Status: Current every day smoker Tobacco Use: Cigarettes Assessment/Plan All Active Problems Pneumothorax after biopsy (Acute) 1. Removed patient's pigtail chest tube this morning. We will check a two-view chest x-ray in 2 hours. If it is okay patient is okay to be DC'd from my standpoint. Will keep the dressing on for 4-5 days. It is okay to remove the dressing. Melinda Terrell M.D. Pager: [phone] [facility] [address] [place] [address], [facility], [address] [place] [address] Office: [phone]
[2018-10-02] MEDS: Enoxaparin 40 MG/0.4 ML Syringe SC (08:36)
[2018-10-02] MEDS: LINAGLIPTIN 5 MG TABLET PO (08:36)
[2018-10-02] MEDS: Senna Tablet 2 TABLET PO (08:36)
[2018-10-02 09:36] VITALS: BP 116/83; PULSE 84; RESP 18; TEMP 36.4; O2SAT 94
--- NOTE | 2018-10-02 10:10 | RAD_ITS ---
STUDY: X-RAY CHEST REASON FOR EXAM: Male, 77 years old. Status post removal of left sided chest tube. TECHNIQUE: PA and lateral views of the chest. COMPARISON: Comparison is made with prior examination done earlier today. FINDINGS: The left-sided small caliber chest tube has been removed. There is no evidence of pneumothorax. Stable airspace disease in the right lower lobe. Normal size heart. Normal mediastinum and aditi. Normal visualized pulmonary arteries. There is atherosclerotic calcification of the aortic arch with tortuosity. There are diffuse degenerative changes of the visualized thoracic spine. Normal visualized ribs, clavicles, and shoulders. There is no demonstrated abnormality of the visualized soft tissue structures of the upper abdomen. RAD/Chest PA and Lateral IMPRESSION: Status post removal of the left small caliber chest tube. There is no evidence of pneumothorax. Stable airspace disease in the right lower lobe. Electronically Signed: Julius Yoder MD at 10:25 EST Tel [phone], Service support ,
--- NOTE | 2018-10-02 10:15 | CASEMGMT ---
JB OCASIO Face to Face with patient for initial transition planning/care coordination assessment. RN CM introduced self and role at [facility]. Patient lying in bed, alert and oriented, at bedside. Patient willing to participate in assessment and is able to answer all questions appropriately. Care providers, pharmacy, and demographics verified. Patient wishes to discharge home, denies need for home health at this time. Patient states he has no further needs or concerns at this time. CM to follow for discharge planning needs that may arise. Disposition Plan: Patient to discharge home with family support and follow-up plans in place. Iliana BALL, RN, CM
[2018-10-02 11:34] VITALS: O2SAT 93
--- NOTE | 2018-10-02 11:52 | DCINST_ITS ---
- Discharge Diagnoses Current Active Problems: Current Active and Chronic Problems Pneumothorax after biopsy (Acute) Diabetes type 2, controlled (Chronic) Pancreatic mass (Chronic) Adrenal mass, left (Chronic) You will use the following diet at home:: Cardiac Your food should be the consistency of: Regular Your liquids should be the consistency of: Regular/Thin Discharge Activity: Return to Normal Activity Weight Bearing Status: Weight bearing as tolerated Call your doctor if your incision/area has: Increased Pain/ Swelling, Increased Redness, Foul Smelling Discharge, Swelling at the incision site Call your doctor if you observe: Fever of 101 or Higher, Shortness of breath, Swelling in the ankles Additional Instructions: keep dressing on for 4-5 days Allergies/Adverse Reactions: Allergies No Known Allergies Allergy (Verified 09/30/18 07:46) Medications to take at Discharge Multivitamin [Daily Multiple Vitamin] 1 each PO DAILY 08/16/17 Hydrocodone/Acetaminophen [Hydrocodone-Acetamin 5-325 mg] 1 - 2 tab PO Q6H PRN PRN 09/30/18 Linagliptin [Tradjenta] 5 mg PO DAILY 09/30/18 Senna [Senokot] 2 tablet PO DAILY 09/30/18 Tamsulosin HCl 0.4 mg PO DAILY 09/30/18 Primary Care Physician: Alex Romero MD [Primary Care Provider] - Please follow up with your Primary Care Physician in: one week Test Results: Test results from this visit will be discussed in further detail at your follow- up appointment, if applicable. Please Follow Up With: Melinda Terrell MD When: 1 week Proposed Discharge Date: 10/02/18
--- NOTE | 2018-10-02 12:53 | DS.PCM_ITS ---
Discharge Date and Diagnosis Date of Admission: 09/30/18 Date of Discharge: 10/02/18 - Secondary Discharge Diagnosis Chronic Problems Diabetes type 2, controlled (Chronic) Pancreatic mass (Chronic) Adrenal mass, left (Chronic) Hospital Course and Treatment Imaging Results: 10/02/18 10:10 Chest PA and Lateral [RAD] Routine Diagnostic Data Chest X-Ray 10/02/18 10:10 IMPRESSION: Status post removal of the left small caliber chest tube. There is no evidence of pneumothorax. Stable airspace disease in the right lower lobe. Electronically Signed: Julius Yoder MD at 10:25 EST Tel [phone], Service support , general surgery- Dr Terrell Operations: None Procedures: - - chest tube placement Summary of Care Provided: The patient is a 77 year old M with past medical history as listed below. He was admitted through the ED with a complaint of chest pain and shortness of breath. Patient had an attempted left adrenal biopsy the day before admission and subsequently started having these symptoms and was found to have a pneumothorax on the left. He had a chest tube placed in the ED with subsequent improvement of the pneumothorax. He was admitted for monitoring of the pneumothorax for resolution. He had recently been diagnosed with a pancreatic mass and had biopsy done at an outside hospital. CT abdomen and pelvis subsequently done showed left adrenal mass on which a biopsy was attempted, and in the process he obtained the pneumothorax. His oncologist Dr. Gambino once he received pathology results of the adrenal mass prior to instituting chemotherapy. Pancreatic mass cannot be surgically resected because its encasing the splenic vein and so plan was for patient to have neoadjuvant chemotherapy to hopefully shrink the mass before surgery could be attempted. Patient remained stable and pneumothorax resolved. Chest tube was taken out on 10/02/2018 point repeat chest x-ray subsequently showed complete resolution of pneumothorax. Chest x-ray showed stable airspace disease in the right lower lobe. He remained stable and was discharged home on 1231 DVT. He is to follow- up with his primary care doctor and general surgeon as well as his oncologist. Adrenal biopsy will have to be rescheduled on an outpatient basis. Patient seen and examined prior to discharge. He had no complaints and felt well. He does complain of mild pain at site of chest tube PEG tube removal. He denied any fever or chills, any abdominal pain, any shortness of breath, any palpitations, any diarrhea vomiting. Review of systems is otherwise negative. Labs and vitals reviewed Home medications reviewed and reconciled. On examination Vital Signs Height 6 ft Weight: 157 lb 6.561 oz Weight in Pounds 157.4 lbs Pulse Ox [AMBULATING on Room 93 Air] Pulse Ox 94 Temperature 97.5 F Pulse Rate 84 Respiratory Rate 18 Blood Pressure 116/83 Blood Pressure Position Semi-Fowlers [] - Physical Exam General: Alert, Oriented x3, Cooperative, No apparent distress HEENT: Atraumatic, PERRLA, EOMI, Normocephalic Oral: Moist Mucosa Neck: Supple, No JVD, Negative Carotid Bruits Lungs: - - decreased breath sounds bibasally Cardiovascular: Regular rate, Regular Rhythm, Normal S1, Normal S2, No murmurs Abdomen: Bowel Sounds Present, Soft, Non Tender, Non-Distended, No Hepato- splenomegaly Extremities: No clubbing, No cyanosis, No edema, Capillary Refill Less than 3 Seconds Skin: No rashes, No breakdown Musculoskeletal: No Tenderness to Palpation of Joints or Extremities Lymphatic: No Cervical, Supraclavicular, or Inguinal Adenopathy Neurological: Cranial nerves II-XII grossly intact, Neuro grossly intact, Motor Exam 5/5 strength throughout Psych/Mental Status: Normal Affect, Appropriate, Alert and oriented to time, place, person, mood and affect Vital Signs Temp Pulse Resp BP Pulse Ox 97.5 F L 84 18 116/83 H 93 10/02/18 09:36 10/02/18 09:36 10/02/18 09:36 10/02/18 09:36 10/02/18 11:34 Oxygen Flow Rate (L/min) 2 Oxygen Delivery Method Nasal Cannula Weight: 157 lb 6.561 oz Body Mass Index (BMI) 21.3 Intake and Output for Last 24 Hours 09/30/18 10/01/18 10/02/18 23:59 23:59 23:59 Intake Total 1450 / 1450 2250 / 2250 530 / 530 Balance 1450 / 1450 2250 / 2250 530 / 530 Laboratory Tests Past 24 Hrs 10/02/18 03:50 S.aureus Protein A PCR Cancelled MRSA (PCR) Negative Discharge Diet: Low fat/ Low Cholesterol Discharge Activity: Return to Normal Activity Weight Bearing Status: Weight bearing as tolerated Call your doctor if your incision/area has: Increased Pain/ Swelling, Increased Redness, Foul Smelling Discharge, Swelling at the incision site Call your doctor if you observe: Fever of 101 or Higher, Shortness of breath, Swelling in the ankles Home Medications: Medications to take at Discharge Multivitamin [Daily Multiple Vitamin] 1 each PO DAILY 08/16/17 Hydrocodone/Acetaminophen [Hydrocodone-Acetamin 5-325 mg] 1 - 2 tab PO Q6H PRN PRN 09/30/18 Linagliptin [Tradjenta] 5 mg PO DAILY 09/30/18 Senna [Senokot] 2 tablet PO DAILY 09/30/18 Tamsulosin HCl 0.4 mg PO DAILY 09/30/18 Primary Care Physician: Alex Romero MD [Primary Care Provider] - Please follow up with your Primary Care Physician in: one week Please Follow Up With: Melinda Terrell MD When: 1 week Disposition: Home Minutes spent on discharge:: 35 Patient Condition:: Stable Medical Necessity - Tobacco Use Smoking Status: Current every day smoker Tobacco Use: Cigarettes Meaningful Use Info Meaningful Use Diagnoses (Choose all that apply): None applicable Code Visit Inpatient E&M: 76043 Disch Hosp
== END 2018-10-02 12:45 | disposition home or self-care (01) | DRG 200 ==
LOC: ED 08:14 → MS3 10:14
PROVIDERS: Hospitalist; Admitting Provider Family Medicine; Emergency Provider Emergency Medicine; Family Provider Family Medicine; PCP Family Medicine; Visit Provider Student in an Organized Health Care Education/Training Program
DX: J95.811 Postprocedural pneumothorax (principal); C25.9 Malignant neoplasm of pancreas, unspecified; Y84.8 Other medical procedures as the cause of abnormal reaction of the patient, or of later complication, without mention of misadventure at the time of the procedure; E11.9 Type 2 diabetes mellitus without complications; Z79.84 Long term (current) use of oral hypoglycemic drugs; E27.9 Disorder of adrenal gland, unspecified; F17.210 Nicotine dependence, cigarettes, uncomplicated
CPT/HCPCS: 36415; 71045; 71046; 77012; 85610; 87641; 94762; 97802; 99156; 99157; 99281; 99406; J7040; J7050; A4216

== ENCOUNTER → 2018-10-06 14:34 | Outpatient (CLI) | payer MEDICARE, SELFPAY ==
[2018-09-30 10:56] VITALS: BMI 21.3
--- NOTE | 2018-10-06 14:39 | RAD_ITS ---
STUDY: X-RAY CHEST REASON FOR EXAM: Male, 77 years old. Pneumothorax follow-up TECHNIQUE: PA and lateral views of the chest. COMPARISON: Chest x-ray from 10/02/2018 FINDINGS: Lungs continue to be hyperinflated with coarsened interstitial lung markings. Localized parenchymal consolidation of the posterior right lower lobe is overall similar. No pneumothorax. Normal size heart. Normal mediastinum and aditi. Normal visualized pulmonary arteries. There is atherosclerotic calcification of the aortic arch with tortuosity. There are diffuse degenerative changes of the visualized thoracic spine. Normal visualized ribs, clavicles, and shoulders. There is no demonstrated abnormality of the visualized soft tissue structures of the upper abdomen. RAD/Chest PA and Lateral IMPRESSION: 1. No pneumothorax. 2. Right posterior lower lobe airspace disease is stable. Electronically Signed: Gianluca Dotson MD at 8:13 EST , Service support ,
== END ==
PROVIDERS: Family Provider Family Medicine; PCP Family Medicine; Referring Provider Family Medicine; Visit Provider Family Medicine
DX: J93.9 Pneumothorax, unspecified (principal)
CPT/HCPCS: 71046

== ENCOUNTER 2018-10-13 16:22 | Inpatient (IN) | payer MEDICARE, SELFPAY ==
[2018-10-10 09:31] VITALS: BMI 21.3
[2018-10-13 16:23] VITALS: BP 106/70; PULSE 111; RESP 20; TEMP 36.7; O2SAT 91; BMI 20.5
--- NOTE | 2018-10-13 17:18 | EKG12_ITS ---
Test Reason : GEN ILLNESS Blood Pressure : / mmHG Vent. Rate : 101 BPM Atrial Rate : 101 BPM P-R Int : 126 ms QRS Dur : 112 ms QT Int : 406 ms P-R-T Axes : 071 080 050 degrees QTc Int : 526 ms Sinus tachycardia Incomplete right bundle branch block Nonspecific ST abnormality Prolonged QT Abnormal ECG Confirmed by KINZA TOM, MARIANNE ([id number]), associate entertainment editor BENITEZ PEREZ ([id number]) on 10/17/2018 4:35:01 PM Referred By: Ciaran Gambino Confirmed By:MARIANNE ECHOLS MD
--- NOTE | 2018-10-13 17:20 | RAD_ITS ---
STUDY: X-RAY CHEST REASON FOR EXAM: Male, 77 years old. Pancreatic cancer, difficulty drinking and eating TECHNIQUE: PA and lateral views of the chest. COMPARISON: 10/06/2018 FINDINGS: Lungs continue to be hyperinflated with coarsened interstitial lung markings. Localized parenchymal consolidation of the posterior right lower lobe is overall similar. No pneumothorax. Normal size heart. Normal mediastinum and aditi. Normal visualized pulmonary arteries. There is atherosclerotic calcification of the aortic arch with tortuosity. There are diffuse degenerative changes of the visualized thoracic spine. Normal visualized ribs, clavicles, and shoulders. There is no demonstrated abnormality of the visualized soft tissue structures of the upper abdomen. RAD/Chest 1 View (Portable) IMPRESSION: 1. Stable exam. 2. Right posterior lower lobe airspace disease is stable. Underlying neoplasm cannot be excluded. Electronically Signed: Gianluca Dotson MD at 18:44 EST , Service support ,
[2018-10-13] MEDS: 0.9% Normal Saline 1,000 ML 1000 ML IV (17:57)
[2018-10-13 18:19] LABS: Absolute Lymphocyte Count 0.24 X10^3/ul (0.83-4.51); Absolute Neutrophil Count 17.5 X10^3/uL (2.0-7.7); Basophil# 0.01 X10^3/uL; Basophil% 0.1 % (0-1); Eosinophil# 0.02 X10^3/uL; Eosinophils% 0.1 % (0-5); Hematocrit 37.8 % (40-54); Hemoglobin 12.4 g/dl (13.0-16.5); Lymphocyte # 0.24 X10^3/ul (4.0); Lymphocyte % 1.3 % (19-41); Mean Corp Hgb Conc 32.8 g/gl (32-36); Mean Corpuscular Hgb 30.2 pg (27.0-32.0); Mean Platelet Vol. 10.4 fl (6.2-12.0); Monocyte# 0.07 X10^3/uL; Monocyte% 0.4 % (0-10); Neutrophil # 17.47 X10^3/uL (2.7-7.7); Neutrophil % 97.8 % (47-70); Platelet Count 219 K/mm3 (150-450); RBC Distribution Width CV 13.1 % (11.6-14.6); RBC Distribution Width SD 43.7 fl (35.1-43.9); Red Blood Count 4.11 M/mm3 (4.6-6.2); White Blood Count 17.9 K/mm3 (4.4-11.0)
[2018-10-13 18:23] LABS: Differential Indicated SCAN CRITERIA MET; POSITIVE COUNT NO; POSITIVE DIFFERENTIAL YES; POSITIVE MORPHOLOGY NO
[2018-10-13 18:30] LABS: ALB/GLOB Ratio 0.7 RATIO (0.9-2.4); AST(SGOT) 35 U/L (15-37); Alanine Aminotransfer ALT/SGPT 42 U/L (16-61); Albumin, Serum 3.2 g/dL (3.2-5.0); Alkaline Phosphatase 107 U/L (45-117); Anion Gap 9 (5-15); BUN 24 mg/dL (7-18); BUN/Creat Ratio 21.8 RATIO (10-20); Calcium,Total 8.9 mg/dL (8.5-10.1); Chloride 100 mmol/L (98-107); EST Glomerular Filtration Rate 69 mL/min (>60); Est Glom Filt Rate - Afr Amer 83 mL/min (>60); Estimated Creatinine Clearance 52.89 ml/min; Globulin 4.5 g/dL (2.2-4.2); Glucose 196 mg/dL (74-106); Potassium 4.3 mmol/L (3.5-5.1); Protein, Total 7.7 g/dL (6.4-8.2); Sodium Level 135 mmol/L (136-145)
[2018-10-13 18:56] LABS: Platelet Estimate ADEQUATE (ADEQ); Red Cell Morphology NORM C+C NORMAL (NORM C&C)
--- NOTE | 2018-10-13 19:02 | ED.RN ---
LAB CALLED CRITICAL RESULT, LACTIC 2.0, DR WOLF NOTIFIED, NFO'S
--- NOTE | 2018-10-13 19:07 | CT_ITS ---
STUDY: CTA CHEST REASON FOR EXAM: Male, 77 years old. Dyspnea RADIATION DOSAGE (If Supplied By Facility): CTDIvol = ( 6.65 ) mGy, DLP = ( 290.47 ) mGycm TECHNIQUE: The examination was performed with the intravenous administration of 100ML ml of Isovue 370 contrast material. Post-processing of the angiographic images was performed, with multiplanar reformation and 3D reconstruction. Individualized dose optimization techniques were used for this CT. COMPARISON: None. FINDINGS: Normal enhancement of the main pulmonary artery and right and left pulmonary arteries. Normal enhancement of the bilateral peripheral pulmonary arteries. There is no demonstrated pulmonary embolism. Atherosclerotic changes of the aorta without evidence for aneurysm. There is no demonstrated aortic dissection. Heart size is normal. There is minor coronary artery calcification. Normal mediastinum. Normal hilar regions. Normal visualized trachea and bronchi. The lungs are well expanded. Extensive mixed interstitial alveolar infiltrates with groundglass opacity in the superior segment of the right lower lobe and posterior as well as medial segments of the right lower lobe. There is also a small noncalcified nodule in the right middle lobe possibly metastatic. Mixed interstitial alveolar infiltrate is also seen in the dependent portion of left lower lobe. There are scattered patchy airspace opacities seen in the upper lobes Normal pleura. Normal chest wall structures. Dorsal spine demonstrates advanced spondylosis Multiple calcified gallstones are present. Large pancreatic mass consistent with known malignancy CT/CTA Chest W/WO Contrast IMPRESSION: No evidence for pulmonary embolus Bilateral interstitial alveolar infiltrates and multifocal patchy airspace opacities likely inflammatory.. Cannot exclude metastatic nodule in the right middle lobe. Electronically Signed: Stuart Thomas MD at 21:14 EST , Service support ,
[2018-10-13 19:17] VITALS: BP 125/82; PULSE 92; RESP 22; O2SAT 88
[2018-10-13 20:49] VITALS: BP 120/85; PULSE 90; RESP 24; O2SAT 91
--- NOTE | 2018-10-13 20:55 | ED.RN ---
PT HAS BEEN BACK FROM CT FOR 1 H AT 10 MIN, THIS RN CALLS RADIOLOGY TO CHECK ON RESULTS. IT IS IN THE QUE FOR THE RADIOLOGIST TO READ AND 'HOPEFULLY' HE WILL READ IT SOON PER [employer] SUPERVISOR. RELAYED INFORMATION TO PATIENT. PT STATES HE IS UNCOMFORTABLE SITTING IN BED AND STATES HE WOULD LIKE TO MOVE AROUND BUT HE IS TETHERED TO THE BED WITH ALL THESE LINES. INFORMED PT THAT AFTER A NEW SET OF VITAL SIGNS I WOULD MAKE HIM MORE COMFORTABLE AND ALLOW TO SIT IN CHAIR OR ON SIDE OF BED. O2 WAS NOT REMOVED. PT HAS WET COUGH, PER , THIS IS CHRONIC. PT APPEARS SHORT OF BREATH. NO CHANGE PER FAMILY.
[2018-10-13 22:06] LABS: Reflex Lactate? Y
--- NOTE | 2018-10-13 22:16 | HP.PCM_ITS ---
Problem List (1) HCAP (healthcare-associated pneumonia) Status: Acute (2) Sepsis Status: Acute History of Present Illness Date of Admission: 10/13/18 Chief Complaint: chest Pain The patient is a 77 year old M with a significant history of pancreatic cancer; type 2 diabetes who presented because of episodic excruciating aching chest pain that go around his entire chest radiation to his upper back. His symptoms started about 1 week ago. Associated with his symptoms is shortness of breath with mild exertion. He denies any nausea vomiting or diaphoresis. He has a very poor appetite and is not able to eat or drink. Patient started chemotherapy about 2 days ago. He sees Dr. Gambino; oncologist. Dr. Gambino; recommended that he comes to the emergency department for further evaluation. Patient was started on chemotherapy about 2 days prior to presentation. At emergency department patient was found to have elevated respiratory rate from 22-24. So he had a white blood count of 17.9. His lactic acid was initially 2 and trended down to 1.7. Chest x-ray showed stable posterior lower lobe airspace disease. Underlying neoplasm could not be excluded. CTPA showed no evidence of pulmonary embolism. It showed bilateral interstitial alveolar infiltrates and multifocal patchy airspace opacities likely inflammatory. Cannot exclude a metastatic nodule in the right middle lobe. Patient was admitted on 09/30/2018 at our hospital; and he was discharged on 10/02/2018. He was admitted for pneumothorax of the left lung after an unsuccessful attempted biopsy of an adrenal mass x3 times. Past Medical History Past Medical History (Chronic Problems): Chronic Problems (Last Reviewed 10/14/18 @ 02:16 by Errol Donald MD) Diabetes type 2, controlled (Chronic) Pancreatic mass (Chronic) Adrenal mass, left (Chronic) Medical History: Medical History (Last Reviewed 10/14/18 @ 02:16 by Errol Donald MD) Pneumothorax after biopsy (Resolved) J95.811 Diabetes type 2, controlled (Chronic) E11.9 Pancreatic mass (Chronic) K86.9 Adrenal mass, left (Chronic) E27.9 Allergies No Known Allergies Allergy (Verified 10/13/18 16:22) Home Medications: Ambulatory Orders Medication Instructions Recorded Multivitamin [Daily Multiple 1 ea PO DAILY 08/16/17 Vitamin] Hydrocodone/Acetaminophen 1 - 2 tab PO Q6H PRN PRN 09/30/18 [Hydrocodone-Acetamin 5-325 mg] Linagliptin [Tradjenta] 5 mg PO DAILY 09/30/18 Senna [Senokot] 2 tab PO DAILY 09/30/18 Tamsulosin HCl 0.4 mg PO DAILY 09/30/18 Ondansetron [Ondansetron Odt] 8 mg PO Q8H PRN 10/13/18 Surgical History: - - Attempted biopsy of adrenal mass x3 times Lives: Spouse/ Significant Other Smoking Status: Current every day smoker Tobacco Use: Cigars - *Family History Maternal History Items: Cancer - colon Review of Systems Constitutional: Reports: Anorexia. Denies: Chills, Fever, Weight Change HEENT: Denies: Head Aches, Sinus Congestion, Sinus Drainage Cardiovascular: Reports: Chest Pain. Denies: Palpitations Respiratory: Reports: Cough, Shortness of breath upon exertion, Sputum production. Denies: Shortness of breath at rest Gastrointestinal: Denies: Abdominal Pain, Nausea, Vomiting Genitourinary: Denies: Dysuria Musculoskeletal: Denies: Joint Pain, Joint Tenderness Skin: Denies: Rash, Wounds Neurological: Denies: Numbness, Tingling, Focal weakness Psychiatric: Denies: Anxiety, Depression, Homicidal Ideations, Suicidal Ideations Hematologic/ Lymphatic: Denies: Easy Bruising, Easy Bleeding VTE Information - Inpt Only VTE Present on Admission: No VTE Mechan Device Prophylaxis: None VTE Pharm Prophylaxis ordered?: Yes Patient Problems: Active and Suspected Problems (Last Reviewed 10/14/18 @ 02:16 by Errol Donald MD) HCAP (healthcare-associated pneumonia) (Acute) Sepsis (Acute) - Physical Exam General: Alert, Oriented x3, Cooperative HEENT: Atraumatic, PERRLA, EOMI, Normocephalic Neck: Supple, No JVD, Negative Carotid Bruits Lungs: Clear to auscultation, Normal air movement, Tachypneic Cardiovascular: Regular rate, No murmurs Abdomen: Bowel Sounds Present, Soft, Non Tender Extremities: No edema, Capillary Refill Less than 3 Seconds Skin: No rashes, No breakdown, - - Looks jaundiced Musculoskeletal: No Tenderness to Palpation of Joints or Extremities Neurological: Neuro grossly intact Psych/Mental Status: Normal Affect, Appropriate Vital Signs Temp Pulse Resp BP Pulse Ox 98.0 F 90 24 H 120/85 H 91 01/11/19 16:23 10/13/18 20:49 10/13/18 20:49 10/13/18 20:49 10/13/18 20:49 Oxygen Flow Rate (L/min) 2 Oxygen Delivery Method Nasal Cannula Weight: 68.674 kg Body Mass Index (BMI) 20.5 Laboratory Tests Past 24 Hrs 10/13/18 10/13/18 10/13/18 17:59 17:59 17:59 WBC 17.9 H RBC 4.11 L Hgb 12.4 L Hct 37.8 L MCV 92.0 MCH 30.2 MCHC 32.8 RDW 13.1 RDW Differential 43.7 Plt Count 219 MPV 10.4 Immature Gran % (Auto) 0.300 Neut % (Auto) 97.8 H Lymph % (Auto) 1.3 L [place] % (Auto) 0.4 Eos % (Auto) 0.1 Baso % (Auto) 0.1 Absolute Neuts (auto) 17.5 H Absolute Lymphs (auto) 0.24 L Total Counted Not Reportable Differential Comment Platelet Estimate ADEQUATE RBC Morphology NORM C+C D-Dimer Quant (PE/DVT) Cancelled Sodium 135 L Potassium 4.3 Chloride 100 Carbon Dioxide 26.0 Anion Gap 9 BUN 24 H Creatinine 1.10 Estim Creat Clear Calc 52.89 Est GFR (MDRD) Af Amer 83 Est GFR (MDRD) Non-Af 69 BUN/Creatinine Ratio 21.8 H Glucose 196 H Lactic Acid Calcium 8.9 Total Bilirubin 1.00 AST 35 ALT 42 Alkaline Phosphatase 107 Troponin I < 0.015 Total Protein 7.7 Albumin 3.2 Globulin 4.5 H Albumin/Globulin Ratio 0.7 L 10/13/18 17:59 WBC RBC Hgb Hct MCV MCH MCHC RDW RDW Differential Plt Count MPV Immature Gran % (Auto) Neut % (Auto) Lymph % (Auto) [place] % (Auto) Eos % (Auto) Baso % (Auto) Absolute Neuts (auto) Absolute Lymphs (auto) Total Counted Differential Comment Platelet Estimate RBC Morphology D-Dimer Quant (PE/DVT) Sodium Potassium Chloride Carbon Dioxide Anion Gap BUN Creatinine Estim Creat Clear Calc Est GFR (MDRD) Af Amer Est GFR (MDRD) Non-Af BUN/Creatinine Ratio Glucose Lactic Acid 2.0 Calcium Total Bilirubin AST ALT Alkaline Phosphatase Troponin I Total Protein Albumin Globulin Albumin/Globulin Ratio Assessment/Plan All Active Problems (Last Reviewed 10/14/18 @ 02:16 by Errol Donald MD) HCAP (healthcare-associated pneumonia) (Acute) Sepsis (Acute) Pneumothorax after biopsy (Resolved) The patient is a 77 year old M with a significant history of pancreatic cancer; type 2 diabetes who presented because of episodic excruciating aching chest pain that go around his entire chest radiation to his upper back was found to have tachypnea; leukocytosis; and with radiographic evidence of interstitial or alveolar infiltrates and probable metastatic nodule in the right middle lobe. Probable sepsis from hospital-acquired pneumonia. Differential diagnosis includes metastatic cancer with inflammatory changes. For now we will treat as sepsis from hospital-acquired pneumonia. Lactic acid: 2 trended to 1.7 RR ~ 22-24 HR: 90-94 Blood culture ?2 is pending Respiratory Gram stain and culture pending Antibiotics: Received IV vancomycin and Zosyn emergency department. Vancomycin and Zosyn continued. Received normal saline hydration in the emergency department. Legionella antigen screen and Strep antigen ordered Mucinex ordered Consider discussing the case with Dr. Gambino patient's oncologist Diabetes mellitus On presentation his blood glucose on BMP was not within goal Tradjenta continued Fingerstick q. before meals at bedtime.Correction scale insulin ordered. Pancreatic cancer Patient follows up with oncologist, Dr. Gambino As needed [place] continued. Bowel regimen ordered. As needed antiemetics orde red. Patient with severe anorexia with eating and drinking. Dietary consult Gentle IV fluid hydration because of poor po intake. Liberalize diet. BPH Flomax continued DVT prophylaxis Because of high risk with active cancer Lovenox was ordered. Code Visit Inpatient E&M: 36364 Init Hosp L3
--- NOTE | 2018-10-13 22:16 | ED.VISSUMM ---
- ER Visit Summary Date of Service: 10/13/18 Chief Complaint: [Shortness of breath] History of Present Illness: The patient is a 77 M [presents the emergency department complaining of not feeling well for the last 2 months. Patient had some soreness in his chest for the last 5-6 days when he breathes. Patient had some discomfort into his back and right lung. Patient does feel short of breath with activity. Patient has had a lot of thick sputum but it has been clear. 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 He had an attempted biopsy of the left adrenal gland 2 weeks ago and had a left-sided pneumothorax iatrogenically that required chest tube placement. Patient denies any fevers at home. Physical Examination: [HEENT-PERRLA, EOMI. Cranial nerves II through XII grossly intact. TMs clear. Mucous membranes slightly dry. No adenopathy. Patient is cachectic. Cardiovascular-regular rate and rhythm without murmur or ectopy Lungs-clear to auscultation, chest wall stable without crepitus or subcu emphysema Abdomen-normoactive bowel sounds, soft, nontender, no rebound or rigidity, no peritoneal signs. Extremities-intact ?4, normal range of motion, normal pulses, atraumatic] Test Results: [EKG obtained arrival shows sinus rhythm with a ventricular rate of [address] changes and a right bundle branch block. CBC with differential obtained showed a white count of 17.9, hemoglobin 12.4, hematocrit 38, platelets 219. Patient had 98% segmented neutrophils. Chemistries unremarkable. BUN was 24 and creatinine 1.1. Troponin less than 0.015. Chest x-ray showed increased markings in the right lung. D-dimer was elevated therefore CTA of the chest was obtained which showed no evidence for PE however he had bilateral interstitial alveolar infiltrates and multifocal patchy airspace opacities likely inflammatory cannot exclude metastatic nodule in the right middle lobe.] Lactate was 2.0. Emergency Department Course and Treatment: [Patient was started on Zosyn and vancomycin.] Treatment Plan: [Case was discussed with oncologist Dr. Krishnan as well as the hospitalist will evaluate patient for admission] Disposition: [Admit] Impression: [Healthcare acquired pneumonia Dehydration Pancreatic cancer] This note was generated with [employer] software. It may contain incorrect words, spelling, and punctuation that were not noted in review of the chart prior to signing ED Disposition - Plan for ED Patient: Chief Complaint: General Illness Referrals: Alex Romero MD [Primary Care Provider] -
[2018-10-13 22:45] VITALS: BP 120/54; PULSE 94; RESP 22; TEMP 36.7; O2SAT 92
[2018-10-13 22:49] LABS: Lactic Acid 1.7 mmol/L (0.4-2.0)
[2018-10-13] MEDS: Vancomycin IV 1,000 MG/200 ML BAG 200 MG IV (23:24)
[2018-10-14 00:15] VITALS: BP 109/66; PULSE 83; PULSE 84; RESP 15; RESP 16; TEMP 36.8; O2SAT 90; BMI 20.3
[2018-10-14] MEDS: HYDROcodone Bitartrate/Apap 5/325 Tablet PO ×3 (02:13→19:19)
[2018-10-14] MEDS: 0.9% Normal Saline 1,000 ML 75 ML IV (02:14)
--- NOTE | 2018-10-14 03:21 | PCM.RX.CS ---
Consult Pharmacy has been consulted to manage selected antiobiotic: Vancomycin Type of Consult: New start Suspected Infection: Pneumonia Prior Doses of Antibiotics Received/Current Regimen: Medications Vancomycin HCl 750 mg/ Sodium (Chloride) 265 mls @ 250 mls/hr IV Q12H JES Discontinued Medications Vancomycin HCl (Vancomycin) 1,000 mg in 200 mls @ 200 mls/hr IV X1 ONE Stop: 10/13/18 23:24 Last Admin: 10/13/18 23:24 Dose: 200 mls/hr Labs: Sodium 135 mmol/L (136-145) L 10/13/18 17:59 Potassium 4.3 mmol/L (3.5-5.1) 10/13/18 17:59 Chloride 100 mmol/L (98-107) 10/13/18 17:59 Carbon Dioxide 26.0 mmol/L (21.0-32.0) 10/13/18 17:59 Anion Gap 9 (5-15) 10/13/18 17:59 BUN 24 mg/dL (7-18) H 10/13/18 17:59 Creatinine 1.10 mg/dL (0.70-1.30) 10/13/18 17:59 Est GFR (MDRD) Af Amer 83 mL/min (>60) 10/13/18 17:59 Est GFR (MDRD) Non-Af 69 mL/min (>60) 10/13/18 17:59 BUN/Creatinine Ratio 21.8 RATIO (10-20) H 10/13/18 17:59 Glucose 196 mg/dL (74-106) H 10/13/18 17:59 Microbiology: Microbiology 10/14/18 02:38 Urine, Clean Catch Streptococcus pneumoniae Antigen (M - Final 10/14/18 02:38 Urine, Clean Catch Legionella Antigen - Final Weight used for dosin kg Estimated Creatinine Clearance: 52.9 Goal Trough: 15-20 mcg/mL Pharmacy Plan for Drug Dosing: Pharmacy Service will continue to monitor and adjust dosing as required. Follow-Up Labs: Trough Vancomycin Labs to be done on [date and time ordered]: 10/15/18 @1100
[2018-10-14 06:15] VITALS: RESP 15; O2SAT 94
[2018-10-14] MEDS: Piperacil/Tazobactam 3.375 GM/50 ML ML IV (06:44)
[2018-10-14 06:52] VITALS: BP 112/63; PULSE 72; RESP 15; TEMP 36.3; O2SAT 94
[2018-10-14 07:00] LABS: Bedside Glucose 130 mg/dL (70-110)
[2018-10-14 07:18] VITALS: O2SAT 93
[2018-10-14 07:55] LABS: Absolute Lymphocyte Count 0.51 X10^3/ul (0.83-4.51); Absolute Neutrophil Count 14.5 X10^3/uL (2.0-7.7); Basophil# 0.02 X10^3/uL; Basophil% 0.1 % (0-1); Eosinophil# 0.17 X10^3/uL; Eosinophils% 1.1 % (0-5); Hemoglobin 10.3 g/dl (13.0-16.5); Lymphocyte # 0.51 X10^3/ul (4.0); Lymphocyte % 3.3 % (19-41); Mean Corp Hgb Conc 33.2 g/gl (32-36); Mean Corpuscular Hgb 30.7 pg (27.0-32.0); Mean Corpuscular Volume 92.3 fL (80-94); Mean Platelet Vol. 10.9 fl (6.2-12.0); Monocyte% 0.7 % (0-10); Neutrophil # 14.45 X10^3/uL (2.7-7.7); Neutrophil % 94.5 % (47-70); Platelet Count 199 K/mm3 (150-450); RBC Distribution Width CV 12.8 % (11.6-14.6); RBC Distribution Width SD 42.1 fl (35.1-43.9); Red Blood Count 3.36 M/mm3 (4.6-6.2); White Blood Count 15.3 K/mm3 (4.4-11.0)
[2018-10-14 07:58] LABS: Differential Indicated SCAN CRITERIA MET; POSITIVE COUNT NO; POSITIVE DIFFERENTIAL YES; POSITIVE MORPHOLOGY NO
[2018-10-14] MEDS: guaiFENesin 1,200 MG Tablet 1200 MG PO ×2 (08:04→21:39)
[2018-10-14] MEDS: Tamsulosin HCl 0.4 MG Capsule PO (08:04)
[2018-10-14] MEDS: LINAGLIPTIN 5 MG TABLET PO (08:04)
[2018-10-14] MEDS: Magnesium Hydroxide 30 ML UDC PO (08:04)
[2018-10-14] MEDS: Multivitamins,Therapeutic Tablet 1 TABLET PO (08:04)
[2018-10-14] MEDS: Senna/Docusate Sodium 1 Tablet PO ×2 (08:04→21:39)
[2018-10-14] MEDS: Enoxaparin 40 MG/0.4 ML Syringe SC (08:09)
[2018-10-14 08:13] LABS: Anion Gap 7 (5-15); BUN 19 mg/dL (7-18); BUN/Creat Ratio 23.6 RATIO (10-20); Calcium,Total 8.3 mg/dL (8.5-10.1); Chloride 104 mmol/L (98-107); Creatinine, Serum 0.81 mg/dL (0.70-1.30); EST Glomerular Filtration Rate 98 mL/min (>60); Est Glom Filt Rate - Afr Amer 119 mL/min (>60); Estimated Creatinine Clearance 71.12 ml/min; Glucose 124 mg/dL (74-106); Potassium 3.8 mmol/L (3.5-5.1); Sodium Level 136 mmol/L (136-145)
[2018-10-14 08:19] LABS: Hypochromasia RARE; Platelet Estimate ADEQUATE (ADEQ)
--- NOTE | 2018-10-14 08:50 | CASEMGMT ---
Social Work Note Per admissions questions, pt has completed advanced directives, hasn't provided a copy to [facility] but is able to bring in copies. Iliana Carroll MUNITIONS WORKER, MORTGAGE CONSULTANT
--- NOTE | 2018-10-14 09:56 | PCM.PN.HOSP ---
Patient Problems: Active and Suspected Problems (Last Reviewed 10/14/18 @ 02:16 by Errol Donald MD) HCAP (healthcare-associated pneumonia) (Acute) Sepsis (Acute) Subjective: He is feeling better today denies any significant shortness of breath, no fevers or chills. Denies any chest pain Vitals/I&O's: Vital Signs Temp Pulse Resp BP Pulse Ox 97.3 F L 72 15 112/63 93 10/14/18 06:52 10/14/18 06:52 10/14/18 06:52 10/14/18 06:52 10/14/18 07:18 Oxygen Flow Rate (L/min) 2 Oxygen Delivery Method Nasal Cannula Weight: 149 lb 14.629 oz Body Mass Index (BMI) 20.3 Intake and Output for Last 24 Hours 10/12/18 10/13/18 10/14/18 23:59 23:59 23:59 Intake Total 627 / 627 Output Total 150 / 150 Balance 477 / 477 General: Alert, Oriented x3, Cooperative, No apparent distress HEENT: Atraumatic, PERRLA, EOMI, Normocephalic Oral: Moist Mucosa Neck: Supple, No JVD, Trachea Midline Lungs: Clear to auscultation, Normal air movement, No rhonchi, No wheeze, No rales, Diminished Cardiovascular: Regular rate, Regular Rhythm, Normal S1, Normal S2, No murmurs, No rub noted, No Gallop Abdomen: Soft, Non Tender, Non-Distended, No Hepato-splenomegaly Extremities: No edema, Capillary Refill Less than 3 Seconds Skin: No rashes, No breakdown Neurological: Neuro grossly intact, Sensory exam intact to light touch and pain Psych/Mental Status: Normal Affect, Appropriate Microbiology Past 72 Hours 10/14/18 02:38 Urine, Clean Catch Streptococcus pneumoniae Antigen (M - Final 10/14/18 02:38 Urine, Clean Catch Legionella Antigen - Final Laboratory Results 10/13/18 17:59: WBC 17.9 H, RBC 4.11 L, Hgb 12.4 L, Hct 37.8 L, MCV 92.0, MCH 30.2, MCHC 32.8, RDW 13.1, RDW Differential 43.7, Plt Count 219, MPV 10.4, Immature Gran % (Auto) 0.300, Neut % (Auto) 97.8 H, Lymph % (Auto) 1.3 L, [place] % (Auto) 0.4, Eos % (Auto) 0.1, Baso % (Auto) 0.1, Absolute Neuts (auto) 17.5 H, Absolute Lymphs (auto) 0.24 L, Total Counted Not Reportable, Differential Comment , Platelet Estimate ADEQUATE, RBC Morphology NORM C+C 10/13/18 17:59: D-Dimer Quant (PE/DVT) Cancelled 10/13/18 17:59: Sodium 135 L, Potassium 4.3, Chloride 100, Carbon Dioxide 26.0, Anion Gap 9, BUN 24 H, Creatinine 1.10, Estim Creat Clear Calc 52.89, Est GFR (MDRD) Af Amer 83, Est GFR (MDRD) Non-Af 69, BUN/Creatinine Ratio 21.8 H, Glucose 196 H, Calcium 8.9, Total Bilirubin 1.00, AST 35, ALT 42, Alkaline Phosphatase 107, Troponin I < 0.015, Total Protein 7.7, Albumin 3.2, Globulin 4.5 H, Albumin/Globulin Ratio 0.7 L 10/13/18 17:59: Lactic Acid 2.0 10/13/18 22:21: Lactic Acid 1.7 10/14/18 06:38: WBC 15.3 H, RBC 3.36 L, Hgb 10.3 L, Hct 31.0 L, MCV 92.3, MCH 30.7, MCHC 33.2, RDW 12.8, RDW Differential 42.1, Plt Count 199, MPV 10.9, Immature Gran % (Auto) 0.300, Neut % (Auto) 94.5 H, Lymph % (Auto) 3.3 L, [place] % (Auto) 0.7, Eos % (Auto) 1.1, Baso % (Auto) 0.1, Absolute Neuts (auto) 14.5 H, Absolute Lymphs (auto) 0.51 L, Total Counted Not Reportable, Platelet Estimate ADEQUATE, Hypochromasia RARE 10/14/18 06:38: Sodium 136, Potassium 3.8, Chloride 104, Carbon Dioxide 25.0, Anion Gap 7, BUN 19 H, Creatinine 0.81, Estim Creat Clear Calc 71.12, Est GFR (MDRD) Af Amer 119, Est GFR (MDRD) Non-Af 98, BUN/Creatinine Ratio 23.6 H, Glucose 124 H, Calcium 8.3 L 10/14/18 06:55: POC Glucose 130 H Current Medications Hydrocodone Bitart/Acetaminophen ([place] 5mg-325mg) 1 tablet PO Q6H PRN PRN PRN Reason: PAIN Last Admin: 10/14/18 02:13 Dose: 1 tablet Dextrose (D50w Syringe) 0 gm IV X1 PRN; Protocol PRN Reason: Hypoglycemia Enoxaparin Sodium (Lovenox) 40 mg SC DAILY@1000 JES Last Admin: 10/14/18 08:09 Dose: 40 mg Glucagon () 1 mg IM .X1 PRN PRN Reason: Hypoglycemia Guaifenesin (Mucinex) 1,200 mg PO BID [facility] Last Admin: 10/14/18 08:04 Dose: 1,200 mg Sodium Chloride () 1,000 mls @ 75 mls/hr IV .[id number] [facility] Stop: 10/14/18 14:32 Last Admin: 10/14/18 02:14 Dose: 75 mls/hr Levofloxacin (Levaquin Iv) 750 mg in 150 mls @ 100 mls/hr IV Q24 [facility] Insulin Human Lispro (Humalog Kwikpen (Bkc)) 0 unit SQ ACHS [facility]; Protocol Last Admin: 10/14/18 07:33 Dose: Not Given Linagliptin (Tradjenta) 5 mg PO DAILY [facility] Last Admin: 10/14/18 08:04 Dose: 5 mg Magnesium Hydroxide (Milk Of Magnesia) 30 ml PO DAILY PRN PRN PRN Reason: Constipation Last Admin: 10/14/18 08:04 Dose: 30 ml [facility]) [facility] Last Admin: 10/14/18 08:04 Dose: 1 tablet Ondansetron HCl (Zofran) 4 mg IV Q6H PRN PRN PRN Reason: NAUSEA/VOMITING Senna/Docusate Sodium (Senokot-S, Alana-Colace) 1 tablet PO BID [facility] Last Admin: 10/14/18 08:04 Dose: 1 tablet Sodium Chloride () 5 - 15 ml IV UD PRN PRN Reason: SALINE FLUSH Tamsulosin HCl (Flomax) 0.4 mg PO DAILY [facility] Last Admin: 10/14/18 08:04 Dose: 0.4 mg Medical Necessity - Tobacco Use Smoking Status: Current every day smoker Tobacco Use: Cigars Assessment/Plan All Active Problems (Last Reviewed 10/14/18 @ 02:16 by Errol Donald MD) HCAP (healthcare-associated pneumonia) (Acute) Sepsis (Acute) Pneumothorax after biopsy (Resolved) 1. Mild sepsis secondary to healthcare associated pneumonia -He had a recent admission for a couple of days in September for a collapsed lung on the left and a chest tube after an adrenal biopsy -MRSA screen at that time was negative therefore can discontinue the MRSA coverage with vancomycin -Given how stable he is an the unlikelihood that he has any multidrug-resistant organisms can also discontinue the Zosyn -We will monitor him 1 more day of Levaquin and if he continues to improve and is able to get off oxygen can plan on discharge tomorrow on p.o. Levaquin to complete a 10-day course 2. Pancreatic cancer -He was supposed to have an adrenal biopsy for a nodule that was found that there, however it was unsuccessful and caused a pneumothorax in the left -He underwent his first round of chemotherapy I believe on Tuesday -He has poor p.o. intake because of the pancreatic cancer though hopefully with treatment he should be able to eat better 3. DM 2 -Continue with Tradjenta -Accu-Cheks and sliding scale insulin DVT: Lovenox Code Visit Inpatient E&M: 06018 Subs Hosp L2
--- NOTE | 2018-10-14 10:04 | PN_ITS ---
Patient Problems: Active and Suspected Problems (Last Reviewed 10/14/18 @ 02:16 by Errol Donald MD) HCAP (healthcare-associated pneumonia) (Acute) Sepsis (Acute) Subjective: He is feeling better today denies any significant shortness of breath, no fevers or chills. Denies any chest pain Vitals/I&O's: Vital Signs Temp Pulse Resp BP Pulse Ox 97.3 F L 72 15 112/63 93 10/14/18 06:52 10/14/18 06:52 10/14/18 06:52 10/14/18 06:52 10/14/18 07:18 Oxygen Flow Rate (L/min) 2 Oxygen Delivery Method Nasal Cannula Weight: 149 lb 14.629 oz Body Mass Index (BMI) 20.3 Intake and Output for Last 24 Hours 10/12/18 10/13/18 10/14/18 23:59 23:59 23:59 Intake Total 627 / 627 Output Total 150 / 150 Balance 477 / 477 General: Alert, Oriented x3, Cooperative, No apparent distress HEENT: Atraumatic, PERRLA, EOMI, Normocephalic Oral: Moist Mucosa Neck: Supple, No JVD, Trachea Midline Lungs: Clear to auscultation, Normal air movement, No rhonchi, No wheeze, No rales, Diminished Cardiovascular: Regular rate, Regular Rhythm, Normal S1, Normal S2, No murmurs, No rub noted, No Gallop Abdomen: Soft, Non Tender, Non-Distended, No Hepato-splenomegaly Extremities: No edema, Capillary Refill Less than 3 Seconds Skin: No rashes, No breakdown Neurological: Neuro grossly intact, Sensory exam intact to light touch and pain Psych/Mental Status: Normal Affect, Appropriate Microbiology Past 72 Hours 10/14/18 02:38 Urine, Clean Catch Streptococcus pneumoniae Antigen (M - Final 10/14/18 02:38 Urine, Clean Catch Legionella Antigen - Final Laboratory Results 10/13/18 17:59: WBC 17.9 H, RBC 4.11 L, Hgb 12.4 L, Hct 37.8 L, MCV 92.0, MCH 30.2, MCHC 32.8, RDW 13.1, RDW Differential 43.7, Plt Count 219, MPV 10.4, Immature Gran % (Auto) 0.300, Neut % (Auto) 97.8 H, Lymph % (Auto) 1.3 L, [place] % (Auto) 0.4, Eos % (Auto) 0.1, Baso % (Auto) 0.1, Absolute Neuts (auto) 17.5 H, Absolute Lymphs (auto) 0.24 L, Total Counted Not Reportable, Differential Comment , Platelet Estimate ADEQUATE, RBC Morphology NORM C+C 10/13/18 17:59: D-Dimer Quant (PE/DVT) Cancelled 10/13/18 17:59: Sodium 135 L, Potassium 4.3, Chloride 100, Carbon Dioxide 26.0, Anion Gap 9, BUN 24 H, Creatinine 1.10, Estim Creat Clear Calc 52.89, Est GFR (MDRD) Af Amer 83, Est GFR (MDRD) Non-Af 69, BUN/Creatinine Ratio 21.8 H, Glucose 196 H, Calcium 8.9, Total Bilirubin 1.00, AST 35, ALT 42, Alkaline Phosphatase 107, Troponin I < 0.015, Total Protein 7.7, Albumin 3.2, Globulin 4.5 H, Albumin/Globulin Ratio 0.7 L 10/13/18 17:59: Lactic Acid 2.0 10/13/18 22:21: Lactic Acid 1.7 10/14/18 06:38: WBC 15.3 H, RBC 3.36 L, Hgb 10.3 L, Hct 31.0 L, MCV 92.3, MCH 30.7, MCHC 33.2, RDW 12.8, RDW Differential 42.1, Plt Count 199, MPV 10.9, Immature Gran % (Auto) 0.300, Neut % (Auto) 94.5 H, Lymph % (Auto) 3.3 L, [place] % (Auto) 0.7, Eos % (Auto) 1.1, Baso % (Auto) 0.1, Absolute Neuts (auto) 14.5 H, Absolute Lymphs (auto) 0.51 L, Total Counted Not Reportable, Platelet Estimate ADEQUATE, Hypochromasia RARE 10/14/18 06:38: Sodium 136, Potassium 3.8, Chloride 104, Carbon Dioxide 25.0, Anion Gap 7, BUN 19 H, Creatinine 0.81, Estim Creat Clear Calc 71.12, Est GFR (MDRD) Af Amer 119, Est GFR (MDRD) Non-Af 98, BUN/Creatinine Ratio 23.6 H, Glucose 124 H, Calcium 8.3 L 10/14/18 06:55: POC Glucose 130 H Current Medications Hydrocodone Bitart/Acetaminophen ([place] 5mg-325mg) 1 tablet PO Q6H PRN PRN PRN Reason: PAIN Last Admin: 10/14/18 02:13 Dose: 1 tablet Dextrose (D50w Syringe) 0 gm IV X1 PRN; Protocol PRN Reason: Hypoglycemia Enoxaparin Sodium (Lovenox) 40 mg SC DAILY@1000 JES Last Admin: 10/14/18 08:09 Dose: 40 mg Glucagon () 1 mg IM .X1 PRN PRN Reason: Hypoglycemia Guaifenesin (Mucinex) 1,200 mg PO BID [facility] Last Admin: 10/14/18 08:04 Dose: 1,200 mg Sodium Chloride () 1,000 mls @ 75 mls/hr IV .[id number] [facility] Stop: 10/14/18 14:32 Last Admin: 10/14/18 02:14 Dose: 75 mls/hr Levofloxacin (Levaquin Iv) 750 mg in 150 mls @ 100 mls/hr IV Q24 [facility] Insulin Human Lispro (Humalog Kwikpen (Bkc)) 0 unit SQ ACHS [facility]; Protocol Last Admin: 10/14/18 07:33 Dose: Not Given Linagliptin (Tradjenta) 5 mg PO DAILY [facility] Last Admin: 10/14/18 08:04 Dose: 5 mg Magnesium Hydroxide (Milk Of Magnesia) 30 ml PO DAILY PRN PRN PRN Reason: Constipation Last Admin: 10/14/18 08:04 Dose: 30 ml [facility]it[facility] ([facility]amin) [facility] Last Admin: 10/14/18 08:04 Dose: 1 tablet Ondansetron HCl (Zofran) 4 mg IV Q6H PRN PRN PRN Reason: NAUSEA/VOMITING Senna/Docusate Sodium (Senokot-S, Alana-Colace) 1 tablet PO BID [facility] Last Admin: 10/14/18 08:04 Dose: 1 tablet Sodium Chloride () 5 - 15 ml IV UD PRN PRN Reason: SALINE FLUSH Tamsulosin HCl (Flomax) 0.4 mg PO DAILY [facility] Last Admin: 10/14/18 08:04 Dose: 0.4 mg Medical Necessity - Tobacco Use Smoking Status: Current every day smoker Tobacco Use: Cigars Assessment/Plan All Active Problems (Last Reviewed 10/14/18 @ 02:16 by Errol Donald MD) HCAP (healthcare-associated pneumonia) (Acute) Sepsis (Acute) Pneumothorax after biopsy (Resolved) 1. Mild sepsis secondary to healthcare associated pneumonia -He had a recent admission for a couple of days in September for a collapsed lung on the left and a chest tube after an adrenal biopsy -MRSA screen at that time was negative therefore can discontinue the MRSA coverage with vancomycin -Given how stable he is an the unlikelihood that he has any multidrug-resistant organisms can also discontinue the Zosyn -We will monitor him 1 more day of Levaquin and if he continues to improve and is able to get off oxygen can plan on discharge tomorrow on p.o. Levaquin to complete a 10-day course 2. Pancreatic cancer -He was supposed to have an adrenal biopsy for a nodule that was found that there, however it was unsuccessful and caused a pneumothorax in the left -He underwent his first round of chemotherapy I believe on Tuesday -He has poor p.o. intake because of the pancreatic cancer though hopefully with treatment he should be able to eat better 3. DM 2 -Continue with Tradjenta -Accu-Cheks and sliding scale insulin DVT: Lovenox Code Visit Inpatient E&M: 34397 Subs Hosp L2
[2018-10-14] MEDS: levoFLOXacin IV 750 MG/150 ML BAG 100 MG IV (10:17)
[2018-10-14 11:16] LABS: Bedside Glucose 170 mg/dL (70-110)
[2018-10-14] MEDS: Insulin Lispro 100 UNIT/ML INSULN.PEN SQ ×2 (11:17→21:40)
[2018-10-14 14:03] VITALS: BP 104/68; PULSE 81; RESP 18; TEMP 36.6; O2SAT 92
--- NOTE | 2018-10-14 15:03 | CM.UR ---
bar porter completed. Met face to face with patient and his spouse, introduced myself and explained my role. Denies any anticipated needs unless he goes home with oxygen. I agreed with their thoughts. Explained we will continue to try to wean from o2 however if not we will arrange for home o2. Verb understanding. Has no preference for O2 company, if needed. Tyrone Munoz RN, [facility].
[2018-10-14 16:30] LABS: Bedside Glucose 96 mg/dL (70-110)
[2018-10-14 19:50] VITALS: BP 118/69; PULSE 94; RESP 18; TEMP 37.1; O2SAT 93
[2018-10-14 21:45] LABS: Bedside Glucose 162 mg/dL (70-110)
[2018-10-15 02:00] VITALS: BP 130/76; PULSE 91; RESP 16; TEMP 36.8; O2SAT 96
--- NOTE | 2018-10-15 06:42 | PCM.PN.HOSP ---
Patient Problems: Active and Suspected Problems (Last Reviewed 10/14/18 @ 02:16 by Errol Donald MD) HCAP (healthcare-associated pneumonia) (Acute) Sepsis (Acute) Subjective: Feels much better today than he did on admission. Was on room air yesterday evening and tolerating that well, without any shortness of breath. Currently denies any fevers or chills Vitals/I&O's: Vital Signs Temp Pulse Resp BP Pulse Ox 98.2 F 91 16 130/76 H 96 10/15/18 02:00 10/15/18 02:00 10/15/18 02:00 10/15/18 02:00 10/15/18 02:00 Oxygen Flow Rate (L/min) 2 Oxygen Delivery Method Nasal Cannula Weight: 149 lb 14.629 oz Body Mass Index (BMI) 20.3 Intake and Output for Last 24 Hours 10/13/18 10/14/18 10/15/18 23:59 23:59 23:59 Intake Total 1290 / 1290 300 / 300 Output Total 150 / 150 Balance 1140 / 1140 300 / 300 General: Alert, Oriented x3, Cooperative HEENT: Atraumatic, PERRLA, EOMI, Normocephalic Neck: Supple, No JVD, Negative Carotid Bruits Lungs: Clear to auscultation, Normal air movement, Tachypneic Cardiovascular: Regular rate, No murmurs Abdomen: Bowel Sounds Present, Soft, Non Tender Extremities: No edema, Capillary Refill Less than 3 Seconds Skin: No rashes, No breakdown, - - Looks jaundiced Musculoskeletal: No Tenderness to Palpation of Joints or Extremities Neurological: Neuro grossly intact Psych/Mental Status: Normal Affect, Appropriate Microbiology Past 72 Hours 10/14/18 02:38 Urine, Clean Catch Streptococcus pneumoniae Antigen (M - Final 10/14/18 02:38 Urine, Clean Catch Legionella Antigen - Final Laboratory Results 10/14/18 06:38: WBC 15.3 H, RBC 3.36 L, Hgb 10.3 L, Hct 31.0 L, MCV 92.3, MCH 30.7, MCHC 33.2, RDW 12.8, RDW Differential 42.1, Plt Count 199, MPV 10.9, Immature Gran % (Auto) 0.300, Neut % (Auto) 94.5 H, Lymph % (Auto) 3.3 L, [place] % (Auto) 0.7, Eos % (Auto) 1.1, Baso % (Auto) 0.1, Absolute Neuts (auto) 14.5 H, Absolute Lymphs (auto) 0.51 L, Total Counted Not Reportable, Platelet Estimate ADEQUATE, Hypochromasia RARE 10/14/18 06:38: Sodium 136, Potassium 3.8, Chloride 104, Carbon Dioxide 25.0, Anion Gap 7, BUN 19 H, Creatinine 0.81, Estim Creat Clear Calc 71.12, Est GFR (MDRD) Af Amer 119, Est GFR (MDRD) Non-Af 98, BUN/Creatinine Ratio 23.6 H, Glucose 124 H, Calcium 8.3 L 10/14/18 06:55: POC Glucose 130 H 10/14/18 11:09: POC Glucose 170 H 10/14/18 16:24: POC Glucose 96 10/14/18 21:39: POC Glucose 162 H Current Medications Hydrocodone Bitart/Acetaminophen ([place] 5mg-325mg) 1 tablet PO Q6H PRN PRN PRN Reason: PAIN Last Admin: 10/14/18 19:19 Dose: 1 tablet Dextrose (D50w Syringe) 0 gm IV X1 PRN; Protocol PRN Reason: Hypoglycemia Enoxaparin Sodium (Lovenox) 40 mg SC DAILY@1000 JES Last Admin: 10/14/18 08:09 Dose: 40 mg Glucagon () 1 mg IM .X1 PRN PRN Reason: Hypoglycemia Guaifenesin (Mucinex) 1,200 mg PO BID [facility] Last Admin: 10/14/18 21:39 Dose: 1,200 mg Levofloxacin (Levaquin Iv) 750 mg in 150 mls @ 100 mls/hr IV Q24 [facility] Last Admin: 10/14/18 10:17 Dose: 100 mls/hr Insulin Human Lispro (Humalog Kwikpen (Bkc)) 0 unit SQ ACHS [facility]; Protocol Last Admin: 10/14/18 21:40 Dose: 1 unit Linagliptin (Tradjenta) 5 mg PO DAILY [facility] Last Admin: 10/14/18 08:04 Dose: 5 mg Magnesium Hydroxide (Milk Of Magnesia) 30 ml PO DAILY PRN PRN PRN Reason: Constipation Last Admin: 01/12/19 08:04 Dose: 30 ml Multivitamins (Multivitamin) 1 tablet PO DAILYCM [facility] Last Admin: 10/14/18 08:04 Dose: 1 tablet Nutritional Formula (Lactose Free) (Ensure Clear) 120 ml PO 4X/DAY [facility] Last Admin: 10/14/18 22:20 Dose: Not Given Ondansetron HCl (Zofran) 4 mg IV Q6H PRN PRN PRN Reason: NAUSEA/VOMITING Senna/Docusate Sodium (Senokot-S, Alana-Colace) 1 tablet PO BID [facility] Last Admin: 10/14/18 21:39 Dose: 1 tablet Sodium Chloride () 5 - 15 ml IV UD PRN PRN Reason: SALINE FLUSH Tamsulosin HCl (Flomax) 0.4 mg PO DAILY [facility] Last Admin: 10/14/18 08:04 Dose: 0.4 mg Medical Necessity - Tobacco Use Smoking Status: Current every day smoker Tobacco Use: Cigars Assessment/Plan All Active Problems (Last Reviewed 10/14/18 @ 02:16 by Errol Donald MD) HCAP (healthcare-associated pneumonia) (Acute) Sepsis (Acute) Pneumothorax after biopsy (Resolved) 1. Mild sepsis secondary to healthcare associated pneumonia -He had a recent admission for a couple of days in September for a collapsed lung on the left and a chest tube after an adrenal biopsy -MRSA screen at that time was negative therefore can discontinue the MRSA coverage with vancomycin -Given how stable he is an the unlikelihood that he has any multidrug-resistant organisms can also discontinue the Zosyn -Plan for discharge today on p.o. Levaquin 2. Pancreatic cancer -He was supposed to have an adrenal biopsy for a nodule that was found that there, however it was unsuccessful and caused a pneumothorax in the left -He underwent his first round of chemotherapy I believe on Tuesday -He has poor p.o. intake because of the pancreatic cancer though hopefully with treatment he should be able to eat better 3. DM 2 -Continue with Tradjenta -Accu-Cheks and sliding scale insulin DVT: Lovenox Code Visit Inpatient E&M: 86856 Subs Hosp L2
[2018-10-15] MEDS: HYDROcodone Bitartrate/Apap 5/325 Tablet PO (06:55)
[2018-10-15 06:56] LABS: Bedside Glucose 140 mg/dL (70-110)
[2018-10-15 07:00] LABS: Absolute Lymphocyte Count 0.31 X10^3/ul (0.83-4.51); Absolute Neutrophil Count 12.1 X10^3/uL (2.0-7.7); Basophil# 0.02 X10^3/uL; Basophil% 0.2 % (0-1); Eosinophil# 0.05 X10^3/uL; Eosinophils% 0.4 % (0-5); Hematocrit 32.1 % (40-54); Hemoglobin 10.4 g/dl (13.0-16.5); Lymphocyte # 0.31 X10^3/ul (4.0); Lymphocyte % 2.5 % (19-41); Mean Corp Hgb Conc 32.4 g/gl (32-36); Mean Corpuscular Hgb 29.7 pg (27.0-32.0); Mean Corpuscular Volume 91.7 fL (80-94); Mean Platelet Vol. 10.7 fl (6.2-12.0); Monocyte# 0.09 X10^3/uL; Monocyte% 0.7 % (0-10); Neutrophil # 12.12 X10^3/uL (2.7-7.7); Platelet Count 222 K/mm3 (150-450); RBC Distribution Width CV 13.2 % (11.6-14.6); RBC Distribution Width SD 44.2 fl (35.1-43.9); White Blood Count 12.6 K/mm3 (4.4-11.0)
[2018-10-15 07:01] LABS: Differential Indicated SCAN CRITERIA MET; POSITIVE COUNT NO; POSITIVE DIFFERENTIAL YES; POSITIVE MORPHOLOGY NO
[2018-10-15 07:23] VITALS: BP 128/73; PULSE 88; RESP 18; TEMP 36.6; O2SAT 96
[2018-10-15 07:25] VITALS: O2SAT 93
[2018-10-15 07:29] VITALS: PULSE 90
[2018-10-15] MEDS: guaiFENesin 1,200 MG Tablet 1200 MG PO (07:45)
[2018-10-15] MEDS: Enoxaparin 40 MG/0.4 ML Syringe SC (07:45)
[2018-10-15] MEDS: Multivitamins,Therapeutic Tablet 1 TABLET PO (07:46)
[2018-10-15] MEDS: Tamsulosin HCl 0.4 MG Capsule PO (07:46)
[2018-10-15] MEDS: LINAGLIPTIN 5 MG TABLET PO (07:46)
--- NOTE | 2018-10-15 08:19 | DCINST_ITS ---
- Discharge Diagnoses Current Active Problems: Current Active and Chronic Problems (Last Reviewed 10/14/18 @ 02:16 by Errol Donald MD) HCAP (healthcare-associated pneumonia) (Acute) Sepsis (Acute) You will use the following diet at home:: Calorie/Carbohydrate Controlled (specify 1200, 1400, etc) Your food should be the consistency of: Regular Your liquids should be the consistency of: Regular/Thin Discharge Activity: Return to Normal Activity Call your doctor if you observe: Fever of 101 or Higher, Shortness of breath, Chest pain, Increased palpitations (irregular heartbeat) Allergies/Adverse Reactions: Allergies No Known Allergies Allergy (Verified 10/13/18 16:22) Medications to take at Discharge Multivitamin [Daily Multiple Vitamin] 1 ea PO DAILY 08/16/17 Hydrocodone/Acetaminophen [Hydrocodone-Acetamin 5-325 mg] 1 - 2 tab PO Q6H PRN PRN 09/30/18 Linagliptin [Tradjenta] 5 mg PO DAILY 09/30/18 Senna [Senokot] 2 tab PO DAILY 09/30/18 Tamsulosin HCl 0.4 mg PO DAILY 09/30/18 Ondansetron [Ondansetron Odt] 8 mg PO Q8H PRN 10/13/18 Levofloxacin [Levaquin] 750 mg PO DAILY #9 tablet 10/15/18 The following prescriptions were given: Levofloxacin [Levaquin] 750 mg PO DAILY #9 tablet Primary Care Physician: Alex Romero MD [Primary Care Provider] - Please follow up with your Primary Care Physician in: 3-5 days Test Results: Test results from this visit will be discussed in further detail at your follow- up appointment, if applicable.
--- NOTE | 2018-10-15 08:19 | PCM.DC.SUM ---
Discharge Date and Diagnosis - Problem List Patient Problems: Active and Suspected Problems (Last Reviewed 10/14/18 @ 02:16 by Errol Donald MD) HCAP (healthcare-associated pneumonia) (Acute) Sepsis (Acute) Date of Admission: 10/13/18 Date of Discharge: 10/15/18 - Primary Discharge Diagnosis Active and Suspected Problems (Last Reviewed 10/14/18 @ 02:16 by Errol Donald MD) HCAP (healthcare-associated pneumonia) (Acute) Sepsis (Acute) - Secondary Discharge Diagnosis Chronic Problems (Last Reviewed 10/14/18 @ 02:16 by Errol Donald MD) Diabetes type 2, controlled (Chronic) Pancreatic mass (Chronic) Adrenal mass, left (Chronic) Hospital Course and Treatment Imaging Results: CTA Chest: IMPRESSION: No evidence for pulmonary embolus Bilateral interstitial alveolar infiltrates and multifocal patchy airspace opacities likely inflammatory.. Cannot exclude metastatic nodule in the right middle lobe. Consults: None Operations: None Procedures: None Summary of Care Provided: Per HPI: The patient is a 77 year old M with a significant history of pancreatic cancer; type 2 diabetes who presented because of episodic excruciating aching chest pain that go around his entire chest radiation to his upper back. His symptoms started about 1 week ago. Associated with his symptoms is shortness of breath with mild exertion. He denies any nausea vomiting or diaphoresis. He has a very poor appetite and is not able to eat or drink. Patient started chemotherapy about 2 days ago. He sees Dr. Gambino; oncologist. Dr. Gambino; recommended that he comes to the emergency department for further evaluation. Patient was started on chemotherapy about 2 days prior to presentation. At emergency department patient was found to have elevated respiratory rate from 22-24. So he had a white blood count of 17.9. His lactic acid was initially 2 and trended down to 1.7. Chest x-ray showed stable posterior lower lobe airspace disease. Underlying neoplasm could not be excluded. CTPA showed no evidence of pulmonary embolism. It showed bilateral interstitial alveolar infiltrates and multifocal patchy airspace opacities likely inflammatory. Cannot exclude a metastatic nodule in the right middle lobe. Patient was admitted on 09/30/2018 at our hospital; and he was discharged on 10/02/2018. He was admitted for pneumothorax of the left lung after an unsuccessful attempted biopsy of an adrenal mass x3 times. Hospital Course: 1. Mild sepsis secondary to healthcare associated pneumonia -healthcare associated pneumonia was based on his recent over 3-day admission for collapsed lung after a adrenal biopsy. The adrenal biopsy was attempted to evaluate pancreatic cancer and had an adrenal nodule. He presented to the ER with a leukocytosis of 17.9 and decreased ultimately on the day of discharge 12.6. A CTA of his chest was done and demonstrated bilateral interstitial alveolar infiltrates as well has a possible metastatic nodule to the right middle lobe. He was requiring oxygen up until yesterday and has been doing okay without it. He was de-escalated fairly quickly from vancomycin and Zosyn down to IV Levaquin which she has continued to improve on. He had had a MRSA screen in October 02 that was negative. I will discharge him today on p.o. Levaquin 750 mg daily for 9 more days to complete a 10-day course as an outpatient. He is to follow-up with his primary care physician. He is also undergoing chemotherapy for his pancreatic mass so he will also follow-up with his oncologist. 2. His other medical diagnoses were evaluated and his home medications were continued where appropriate Patient Problems: Active and Suspected Problems (Last Reviewed 10/14/18 @ 02:16 by Errol Donald MD) HCAP (healthcare-associated pneumonia) (Acute) Sepsis (Acute) - Physical Exam Vital Signs Temp Pulse Resp BP Pulse Ox 97.9 F 90 18 128/73 H 93 10/15/18 07:23 10/15/18 07:29 10/15/18 07:23 10/15/18 07:23 10/15/18 07:25 Oxygen Flow Rate (L/min) 2.5 Oxygen Delivery Method Room Air Weight: 149 lb 14.629 oz Body Mass Index (BMI) 20.3 Intake and Output for Last 24 Hours 10/13/18 10/14/18 10/15/18 23:59 23:59 23:59 Intake Total 1290 / 1290 400 / 400 Output Total 150 / 150 Balance 1140 / 1140 400 / 400 Microbiology Past 72 Hours 10/14/18 02:38 Streptococcus pneumoniae Antigen (M - Final Urine, Clean Catch 10/14/18 02:38 Legionella Antigen - Final Urine, Clean Catch Laboratory Tests Past 24 Hrs 10/14/18 10/15/18 06:38 05:56 WBC 12.6 H RBC 3.50 L Hgb 10.4 L Hct 32.1 L MCV 91.7 MCH 29.7 MCHC 32.4 RDW 13.2 RDW Differential 44.2 H Plt Count 222 MPV 10.7 Immature Gran % (Auto) 0.200 Neut % (Auto) 96.0 H Lymph % (Auto) 2.5 L [place] % (Auto) 0.7 Eos % (Auto) 0.4 Baso % (Auto) 0.2 Absolute Neuts (auto) 12.1 H Absolute Lymphs (auto) 0.31 L Total Counted Not Reportable Not Reportable Differential Comment Platelet Estimate ADEQUATE Hypochromasia RARE POC Glucose 10/15/18 10/14/18 10/14/18 06:49 21:39 16:24 POC Glucose 140 H 162 H 96 10/14/18 11:09 POC Glucose 170 H Discharge Activity: Return to Normal Activity Call your doctor if you observe: Fever of 101 or Higher, Shortness of breath, Chest pain, Increased palpitations (irregular heartbeat) Home Medications: Medications to take at Discharge Multivitamin [Daily Multiple Vitamin] 1 ea PO DAILY 08/16/17 Hydrocodone/Acetaminophen [Hydrocodone-Acetamin 5-325 mg] 1 - 2 tab PO Q6H PRN PRN 09/30/18 Linagliptin [Tradjenta] 5 mg PO DAILY 09/30/18 Senna [Senokot] 2 tab PO DAILY 09/30/18 Tamsulosin HCl 0.4 mg PO DAILY 09/30/18 Ondansetron [Ondansetron Odt] 8 mg PO Q8H PRN 10/13/18 Levofloxacin [Levaquin] 750 mg PO DAILY #9 tablet 10/15/18 Following Prescrptions Were Given to Patient: Levofloxacin [Levaquin] 750 mg PO DAILY #9 tablet Primary Care Physician: Alex Romero MD [Primary Care Provider] - Please follow up with your Primary Care Physician in: 3-5 days Disposition: Home Minutes spent on discharge:: 35 Patient Condition:: Good Medical Necessity - Tobacco Use Smoking Status: Current every day smoker Tobacco Use: Cigars Meaningful Use Info Meaningful Use Diagnoses (Choose all that apply): None applicable Code Visit Inpatient E&M: 87171 Disch Hosp
--- NOTE | 2018-10-16 15:51 | CASEMGMT ---
JB OCASIO Discharge Follow-up Phone Call: EMMANUEL: Danis Strata: 3 Call Date: 10/16/18 Discharge Date: 10/15/18 Time of Call: 1550 Duration: 2 min Admitting Diagnosis: HCAP JB OCASIO completed follow-up phone call after recent hospitalization. Patient and on the phone and patient states that he is doing fine. Patient and denied questions or concerns regarding discharge instructions. Patient was able to fill prescription without any problems. Patient has follow up appointment with PCP on Tuesday. No further concerns at this time.
== END 2018-10-15 10:19 | disposition home or self-care (01) | DRG 871 ==
LOC: ED 18:19 → MS3 23:24
PROVIDERS: Admitting Provider Hospitalist; Emergency Provider Emergency Medicine; Family Provider Family Medicine; PCP Family Medicine; Visit Provider Family Medicine
DX: A41.9 Sepsis, unspecified organism (principal); J18.9 Pneumonia, unspecified organism; C25.9 Malignant neoplasm of pancreas, unspecified; N40.0 Benign prostatic hyperplasia without lower urinary tract symptoms; Z79.899 Other long term (current) drug therapy; E11.9 Type 2 diabetes mellitus without complications; Z79.84 Long term (current) use of oral hypoglycemic drugs; Z72.0 Tobacco use; Y95 Nosocomial condition; E86.0 Dehydration
CPT/HCPCS: 36415; 71045; 71275; 80048; 80053; 82962; 83605; 84484; 85025; 87040; 87449; 93005; 97161; 97165; 97802; 99282; J7030; Q9967